=== PATIENT | female | born 1945 | race Caucasian/White ===

== ENCOUNTER → 2017-11-08 11:01 | Outpatient (CLI) | payer MEDICARE, MEDICAID, SELFPAY ==
[2017-11-08 11:24] LABS: Basophils # 0.1 K/mm3 (0-0.2); Basophils % 1.7 % (0.1-2.0); Eosinophils # 0.2 K/mm3 (0.0-0.4); Eosinophils % 3.3 % (0.1-12.0); Hematocrit 43.4 % (37.0-47.0); Hemoglobin 14.2 g/dL (12.2-16.2); Lymphocytes # 2.3 K/mm3 (0.7-4.5); Lymphocytes % 34.6 K/mm3 (10-50); Mean Corpuscular HGB Conc 32.6 g/dL (31.8-35.4); Mean Corpuscular Hemoglobin 30.6 pg (27.0-31.2); Mean Platelet Volume 8.5 fl (7.4-10.4); Monocytes # 0.5 K/mm3 (0.1-1.0); Monocytes % 7.1 % (1.7-9.3); Neutrophils # 3.5 K/mm3 (1.8-7.8); Neutrophils % 53.3 % (37.0-80.0); Platelet Count 305 K/mm3 (142-424); Red Blood Count 4.62 M/mm3 (4.20-5.40); Red Cell Distribution Width 13.6 % (11.5-17.5); White Blood Count 6.5 K/mm3 (4.8-10.8)
[2017-11-08 12:06] LABS: Hemoglobin A1C 6.2 % (0.0-7.0)
[2017-11-08 13:12] LABS: Alanine Aminotransferase 50 U/L (12-78); Alkaline Phosphatase 142 U/L (46-116); Anion Gap 11.4 mEq/L (5-15); Aspartate Amino Transferase 49 U/L (15-37); Bilirubin,Total 0.3 mg/dL (0.2-1.0); Blood Urea Nitrogen 12 mg/dL (7-18); Carbon Dioxide 31 mmol/L (21.0-32.0); Chloride 102 mmol/L (98-107); Chol/HDL Ratio 2.6 (1-3.5); Cholesterol 167 mg/dL (140-200); Creatinine,Serum 0.62 mg/dL (0.55-1.02); Estimated Glomerular Filt Rate 95 ml/min (>60); GFR (African American) 115 ML/MIN (>60); Globulin 4.1 gm/dl (1.3-3.2); Glucose 113 mg/dL (74-106); HDL Cholesterol 65 mg/dL (29-89); LDL Cholesterol 58 mg/dL (0-130); Potassium 4.4 mmoL/L (3.5-5.1); Sodium 140 mmol/L (136-145); Total Protein,Serum 8.1 gm/dL (6.4-8.2); Triglycerides 220 mg/dL (30-200); VLDL Cholesterol 44 mg/dL (0-40)
[2017-11-08 14:41] LABS: Erythrocyte Sedimentation Rate 22 mm/hr (0-30)
== END ==
PROVIDERS: PCP Internal Medicine Adolescent Medicine; Visit Provider Internal Medicine Adolescent Medicine
DX: E11.9 Type 2 diabetes mellitus without complications (principal); M05.871 Other rheumatoid arthritis with rheumatoid factor of right ankle and foot; E03.9 Hypothyroidism, unspecified
CPT/HCPCS: 36415; 80053; 80061; 83036; 84443; 85025; 85651

== ENCOUNTER → 2018-04-11 09:37 | Outpatient (CLI) | payer MEDICARE, MEDICAID, SELFPAY ==
--- NOTE | 2018-04-11 09:41 | MM_ITS ---
MM Dig screening mamm BI w/CAD ORDERING PHYSICIAN : Acosta Sol MD PATIENT AGE: 72 years GENDER: Female COMPARISON: February, February 2017, January 2011 INDICATION: ITS.REASON: SCREENING a 72-year-old no hormones no new complaints noncontributory family history TECHNIQUE: Standard CC and MLO images were obtained. R2 CAD reviewed. FINDINGS: Mild/moderate residual fibroglandular elements bilaterally. Scattered small areas of nodularity been seen on previous studies dating back to 2013/& 2011. On these areas appear stable with no significant new findings of bilateral follow-up in one year the adequate RIGHT BREAST:No new areas of concern. Again Small areas of minimal nodularity stable. Similar to studies dating back to 2010 LEFT BREAST:The scattered small areas nodularity noted. Particularly note small focus the lateral left breast stable since 2011. IMPRESSION: No significant new findings. Scattered small areas of minimal nodularity bilaterally haven't been present since studies] least 2011. No new findings of significant concern . Follow-up in one year recommended BI-RADS Category: 2 Benign Finding(s) RECOMMENDED FOLLOW-UP: 1YR 1 YEAR FOLLOW-UP (A letter has been sent to the patient regarding results of the study.)
== END ==
PROVIDERS: Family Provider Internal Medicine Adolescent Medicine; PCP Internal Medicine Adolescent Medicine; Visit Provider Internal Medicine Adolescent Medicine
DX: Z12.31 Encounter for screening mammogram for malignant neoplasm of breast (principal)
CPT/HCPCS: 77067

== ENCOUNTER 2019-12-28 10:17 | Emergency (ER) | payer MEDICARE, OTHER, SELFPAY ==
[2019-12-28 10:19] VITALS: BP 169/102; PULSE 65; RESP 15; TEMP 36.6; O2SAT 97; BMI 27.1; BMI 27.4
--- NOTE | 2019-12-28 10:25 | HMH.EDGENADL ---
ED Disposition Clinical Impression: Auditory hallucinations, Atypical chest pain Disposition: Home, Self-Care Condition on Discharge: Good Instructions: DI for Atypical Chest Pain, DI for Anxiety -- Adult, DI for Psychosis Additional Instructions: Seroquel 50 mg at bedtime. Do not take Lexapro. See Kari Hickey in her office as scheduled - January 17, 2020 at 10:45 A.M. Follow-up with Dr. Sol in the office, call for appointment. Additional instructions for CHEST PAIN: See your physician as soon as possible for further evaluation. Return immediately if worsening chest pain, vomiting, shortness of breath, fever, coughing of blood. Prescriptions: Quetiapine Fumarate [Seroquel 50 mg Tablets] 50 mg PO HS #30 tab Transmission Status: Pending to [facility] Referrals: Acosta Sol MD [Primary Care Provider] - - Critical Care Critical Care Time: No Attestation: On , the high probability of a clinically significant, sudden or life threatening deterioration of the following system(s) required my full and direct attention, intervention and personal management. The time I documented below is in addition to time spent performing reported procedures but includes the following listed in this critical care notation. Medical Decision Making - Gustavo Inquiry Pt receiving controlled substance: No Vital Signs: 12/28/19 10:19 Temperature 98 F Temperature Source Oral Pulse Rate [Right] 65 Respiratory Rate 15 Blood Pressure [Right Arm] 169/102 H Blood Pressure Mean [Right Arm] 124 02 Sat by Pulse Oximetry 97 - Lab Data Lab Results 12/28/19 10:20: WBC 7.2, RBC 4.70, Hgb 14.4, Hct 43.6, MCV 92.7, MCH 30.6, MCHC 33.0, RDW 13.2, Plt Count 376, MPV 8.4, Neut % (Auto) 63.4, Lymph % (Auto) 27.7, [place] % (Auto) 6.3, Eos % (Auto) 1.6, Baso % (Auto) 1.1, Neut # (Auto) 4.6, Lymph # (Auto) 2.0, [place] # (Auto) 0.5, Eos # (Auto) 0.1, Baso # (Auto) 0.1 12/28/19 10:20: Sodium 138, Potassium 4.0, Chloride 99, Carbon Dioxide 28, Anion Gap 15.0, BUN 8, Creatinine 0.60, Estimated Creat Clear 62, Estimated GFR 98, Est GFR ( Amer) 119, Glucose 140 H, Calcium 9.6 12/28/19 10:20: Total Bilirubin 0.4, Direct Bilirubin 0.0, Conjugated Bilirubin 0.0, Indirect Bilirubin 0.4, Unconjugated Bilirubin 0.5, AST 43 H, ALT 30, Alkaline Phosphatase 126, Troponin I < 0.01, Total Protein 8.2, Albumin 4.4 12/28/19 10:20: TSH 2.12, Free T4 Index 4.2 L, Thyroxine (T4) 14.0 H, T3 Uptake 30 12/28/19 10:20: Plasma/Serum Alcohol < 10 12/28/19 10:20: Lipase 197 12/28/19 11:25: Urine Color Yellow, Urine Appearance Clear, Urine pH 6.0, Ur Specific [place] 1.010, Urine Protein 1+, Urine Glucose (UA) Negative, Urine Ketones Negative, Urine Blood Trace-i, Urine Nitrate Negative, Urine Bilirubin Negative, Urine Urobilinogen 0.2, Ur Leukocyte Esterase Negative, Urine RBC Occasional, Urine WBC Occasional, Ur Squamous Epith Cells 5-10, Amorphous Sediment 1+, Urine Bacteria None 12/28/19 11:25: Urine Opiates Screen Negative, Urine Methadone Screen Negative, Ur Barbituates Screen Negative, Ur Phencyclidine Scrn Negative, Ur Amphetamines Screen Negative, U Benzodiazepines Scrn Negative, Urine Cocaine Screen Negative, U Marijuana (THC) Screen Negative Result diagrams: 12/28/19 10:20 12/28/19 10:20 Orders (Tests/Meds): ORDERS Category Date Time Status CT head/brain wo con Stat Cat Scan 12/28/19 10:43 Taken Chest XR 2 view (NOT portable) [XR chest 2V] Stat Exams 12/28/19 10:34 Taken - Radiology Data #1 Image(s): Chest Image Reviewed: Yes I reviewed the patient's radiology image Preliminary Findings: Normal/NAD - CT Data CT Scan: Head Time Received: 11:47 ([facility] fax) ED CT Reviewed: Yes: I have viewed the radiologist's interpretation Findings Narrative: Atrophy and small vessel ischemic change - ECG Data Tracing #1 EKG interpreted by Rashi Silva MD: Rhythm: sinus Rate: 65 [place]: normal Ectopy: none Conduction: normal
--- NOTE | 2019-12-28 10:34 | XR_ITS ---
PROCEDURE: XR CHEST 2V CLINICAL HISTORY: chest pain COMPARISON: CHW CT CHEST W/ CONTRAST from 04/06/2014 FINDINGS: The cardiomediastinal silhouette and pulmonary vascularity are within normal limits. The lungs are clear without infiltrates, suspicious nodules, or pleural effusions. No acute bony abnormalities. IMPRESSION: No acute findings. Dictated by: Octavio Vaughan MD 12/28/2019 14:02 Electronically signed by Octavio Vaughan MD in [place] 12/28/2019 14:02
--- NOTE | 2019-12-28 10:38 | PC.NURSE ---
speaking to Dr Chan
[2019-12-28 10:41] LABS: Basophils # 0.1 K/mm3 (0-0.2); Basophils % 1.1 % (0.1-2.0); Eosinophils # 0.1 K/mm3 (0.0-0.4); Eosinophils % 1.6 % (0.1-12.0); Hematocrit 43.6 % (37.0-47.0); Hemoglobin 14.4 g/dL (12.2-16.2); Lymphocytes % 27.7 % (10-50); Mean Corpuscular Hemoglobin 30.6 pg (27.0-31.2); Mean Corpuscular Volume 92.7 fl (81-99); Mean Platelet Volume 8.4 fl (7.4-10.4); Monocytes # 0.5 K/mm3 (0.1-1.0); Monocytes % 6.3 % (1.7-9.3); Neutrophils # 4.6 K/mm3 (1.8-7.8); Neutrophils % 63.4 % (37.0-80.0); Platelet Count 376 K/mm3 (142-424); Red Cell Distribution Width 13.2 % (11.5-17.5); White Blood Count 7.2 K/mm3 (4.8-10.8)
--- NOTE | 2019-12-28 10:43 | CT_ITS ---
PROCEDURE: CT HEAD/BRAIN WO CON CLINICAL INDICATION: AMS Altered mental status, altered level of consciousness, confusion, disorientation COMPARISON: CT HEAD/BRAIN WO CON from 03/14/2019 TECHNIQUE: Axial images obtained. All CT scans at the facility use one or more dose reduction, viz: automated exposure control, ma/kV adjustment per patient size (including targeted exams where dose is matched to indication, i.e. head), or iterative reconstruction technique. FINDINGS: No midline shift, mass effect, intracranial hemorrhage, hydrocephalus, or extra-axial fluid collection is evident. There is generalized atrophy with hypoattenuation of the periventricular white matter consistent with microangiopathic changes. The calvarium has an unremarkable appearance. No mastoid effusion. No sinus air-fluid level. IMPRESSION: No acute intracranial finding Dictated by: Octavio Vaughan MD 12/28/2019 13:09 Electronically signed by Octavio Vaughan MD in [place] 12/28/2019 13:09
--- NOTE | 2019-12-28 10:46 | PC.NURSE ---
Notified Kari Hickey of consult for pt
[2019-12-28 10:49] LABS: Alanine Aminotransferase 30 U/L (12-78); Albumin Level 4.4 g/dl (3.5-5.0); Alkaline Phosphatase 126 U/L (38-126); Aspartate Amino Transferase 43 U/L (14-36); Bilirubin,Indirect 0.4 mg/dL (0.0-0.9); Bilirubin,Total 0.4 mg/dl (0.2-1.3); Bilirubin,Unconjugated 0.5 mg/dL (0.0-1.1); Total Protein,Serum 8.2 g/dl (6.3-8.2)
[2019-12-28 10:50] LABS: Blood Urea Nitrogen 8 mg/dl (7-17); Calcium 9.6 mg/dl (8.4-10.2); Carbon Dioxide 28 mmol/L (22.0-30.0); Chloride 99 mmol/L (98-107); Creatinine Clearance Estimated 62 mL/min (50-200); Estimated Glomerular Filt Rate 98 ml/min (>60); GFR (African American) 119 ML/MIN (>60); Glucose 140 mg/dl (74-100); Lipase 197 U/L (23-300); Sodium 138 mmol/L (136-145)
[2019-12-28 10:51] LABS: Ethyl Alcohol < 10 mg/dl (0-10)
[2019-12-28 11:04] LABS: Troponin I < 0.01 ng/ml (0.00-0.034)
[2019-12-28 11:12] LABS: Free Thyroxine Index 4.2 ug/dL (5.93-13.13); Triiodothryronine (T3) Uptake 30 % (23.5-40.5)
[2019-12-28 11:26] LABS: Thyroid Stimulating Hormone 2.12 uIU/mL (0.465-4.68)
--- NOTE | 2019-12-28 11:32 | PC.NURSE ---
Gave update to pt daughter
--- NOTE | 2019-12-28 11:38 | PC.NURSE ---
Kari Hickey here to see pt
[2019-12-28 11:49] LABS: Appearance,Urine CLEAR (Clear); Bilirubin,Urine Negative (Negative); Blood, Urine TRACE-I (Negative); Color,Urine YELLOW (Yellow); Glucose,Urine (UA) Negative (Negative); Ketones,Urine Negative (Negative); Leukocyte Esterase,Urine Negative (Negative); Nitrate,Urine Negative (Negative); Protein,Urine 1+ (Negative); Urobilinogen,Urine 0.2 EU/dl (0.2)
[2019-12-28 11:50] LABS: Microscopic, Urine URINE MICROSCOPIC (MICROSCOPIC)
[2019-12-28 12:01] LABS: Amorphous Sediment,Urine 1+ /lpf; Barbiturates Screen,Urine Negative ng/ml (<200); Benzodiazepines Screen,Urine Negative ng/ml (<200); RBC,Urine Occasional #/hpf (0-3); WBC,Urine Occasional #/hpf (0-3)
[2019-12-28 12:02] LABS: Amphetamine/Metha Screen,Urine Negative ng/ml (<1000)
[2019-12-28 12:03] LABS: Methadone Screen,Urine Negative ng/ml (<300)
[2019-12-28 12:04] LABS: Cannabinoid Screen,Urine Negative ng/ml (<50); Cocaine Screen,Urine Negative ng/ml (<300)
[2019-12-28 12:05] LABS: Opiate Screen,Urine Negative ng/ml (<300); Phencyclidine Screen,Urine Negative ng/ml (<25)
--- NOTE | 2019-12-28 12:11 | PC.NURSE ---
COURT RECOMMENDS STARTING ON SEROQUEL 50 @ BEDTIME THEN SHE HAS AN APPT TO COME SEE HER ON JANUARY 16 @[address]24. COURT IS PUTTING HER NOTE IN
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
--- NOTE | 2019-12-28 12:49 | PC.NURSE ---
Notified daughter that pt is ready to be d/c and she stated she would try to find her a ride
--- NOTE | 2019-12-28 12:50 | ECG_ITS ---
APPROVED REPORT Exam: Resting ECG HR:65 bpm ECG Measurements Heart Rate 65 AXES CO 222 P 73 QRSd 92 QRS 43 QT 440 T 62 QTc 457 <Conclusion> Sinus rhythm with 1st degree AV block Nonspecific T wave abnormality Abnormal ECG Electronically signed by : Acosta Sol, 12/29/2019 14:08:35
[2019-12-28 13:05] VITALS: BP 155/74; PULSE 78; RESP 16; TEMP 36.6; O2SAT 98
== END 2019-12-28 13:07 | disposition home or self-care (01) ==
PROVIDERS: Emergency Provider Emergency Medicine; PCP Internal Medicine Adolescent Medicine
DX: R44.0 Auditory hallucinations (principal); R07.89 Other chest pain; E11.9 Type 2 diabetes mellitus without complications; M81.0 Age-related osteoporosis without current pathological fracture; E78.5 Hyperlipidemia, unspecified; I10 Essential (primary) hypertension; F41.9 Anxiety disorder, unspecified
CPT/HCPCS: 70450; 71046; 80048; 80076; 80305; 81001; 83690; 84436; 84443; 84479; 84484; 85025; 93005; 99283

== ENCOUNTER → 2020-10-14 08:28 | Outpatient (CLI) | payer MEDICARE, OTHER, SELFPAY ==
--- NOTE | 2020-10-14 08:43 | MM_ITS ---
PROCEDURE: MM DIG SCREENING MAMM BI W/CAD Digital Breast Tomosynthesis Included CLINICAL INDICATION: SCREENING, POST MENOPAUSAL There is no personal or family history of breast cancer. The patient currently is on estrogen. COMPARISON: MG DMSB DIG MAMM-SCREEN CARMEN from 03/30/2013 MG [facility]B DIG MAMM-SCREEN CARMEN from 04/06/2014 MG DMSB DIG MAMM-SCREEN CARMEN W/CAD from 03/16/2017 [facility] MM Dig screening mamm BI w/CAD from 04/11/2018 TECHNIQUE: Standard CC and MLO images and 3D Tomosynthesis was obtained. R2 CAD reviewed. FINDINGS: Scattered diffuse fibroglandular densities are seen in both breasts. There are no CAD markings. There are benign-appearing microcalcifications right breast. There is stable benign-appearing nodularity in the central portions of both breast. There is no new or suspicious lesion in either breast and no suspicious microcalcifications. IMPRESSION: Moderate breast density with no suspicious lesions seen BI-RAD Category: 2 Benign Finding(s) FOLLOW-UP: 1YR 1 Year Follow-up (A letter has been sent to the patient regarding results of the study.) Dictated by: Dr. Homer Greer MD 10/20/2020 10:19 Dr. Homer Greer MD in [place] 10/20/2020 10:19
--- NOTE | 2020-10-14 08:47 | XR_ITS ---
PROCEDURE: XR DEXA AXIAL SKELETON CLINICAL HISTORY: POST MENOPAUSAL COMPARISON: CR BONE3 BONE DENSITOMETRY(HIP:LT SPINE from 03/16/2017 FINDINGS: The right hip BMD is 0.737 grams/cm2 with a T-score of -1.7. The left hip BMD is 0.792 grams/cm2 with a T-score of -1.2. The lumbar spine BMD is 0.968 grams/cm2 with a T-score of -0.7. FRAX score for 10 year fracture risk as described below: Major osteoporotic fracture 11 percent Hip fracture 1.5 percent. IMPRESSION: This patient is considered osteopenic according to the World Health Organization criteria. Bone density is between 10 and 25 percent below young normal. Fracture risk is moderate. Treatment is advised. Based on these results a follow-up exam is recommended in year. Dictated by: Rachael Brannon 10/14/2020 11:09 Rachael Brannon in [place] 10/14/2020 11:09
== END ==
PROVIDERS: PCP Internal Medicine Adolescent Medicine; Visit Provider Internal Medicine Adolescent Medicine
DX: Z12.31 Encounter for screening mammogram for malignant neoplasm of breast (principal); Z78.0 Asymptomatic menopausal state
CPT/HCPCS: 77063; 77067; 77080

== ENCOUNTER → 2020-11-12 10:25 | Outpatient (CLI) | payer MEDICARE, OTHER, SELFPAY ==
--- NOTE | 2020-11-12 10:31 | US_ITS ---
PROCEDURE: US THYROID CLINICAL INDICATION: HYPOTHYROIDISM,PHARYNGEAL DYSPHAGIA COMPARISON: No exams were available for comparison FINDINGS: Right lobe: 4.2 x 1.9 x 2.5 cm Left lobe: 3.4 x 1.2 x 1.4 cm Isthmus: Slightly thickened at 4 mm Additional findings: There is heterogeneous echogenicity of the thyroid gland with no discrete nodule. IMPRESSION: Heterogeneous echogenic appearance of the thyroid gland without obvious discrete nodule Dictated by: Octavio Vaughan MD 11/12/2020 17:20 Octavio Vaughan MD in [place] 11/12/2020 17:20
--- NOTE | 2020-11-12 10:33 | FL_ITS ---
PROCEDURE: FL BARIUM SWALLOW MODIFIED CLINICAL INDICATION: PHARYNGEAL DYSPHAGIA COMPARISON: No exams were available for comparison TECHNIQUE: Patient administered varying consistencies of barium contrast, while viewed in lateral position under real-time fluoroscopy with cine recording. FLUOROSCOPY TIME:1 minutes and 59 seconds The study was performed in conjunction with speech pathologist. Please see that report & recommendations. FINDINGS: Patient was given varying consistencies of barium. No aspiration or penetration apparent. There was some difficulty with bolus formation with mechanical soft.. IMPRESSION: Unremarkable modified barium swallow. Please see speech pathologist report and recommendations. Dictated by: Octavio Vaughan MD 11/13/2020 10:27 Octavio Vaughan MD in [place] 11/13/2020 10:27
--- NOTE | 2020-11-12 14:09 | HMH.SLMBS2 ---
Speech & Language Evaluation Speech/Language Mod Barium Swallow Start: 11/12/20 12:55 Freq: once Status: Complete Protocol: Document 11/12/20 13:59 CASA (Rec: 11/12/20 14:09 CASA [id number]) General Information General Current Food Consistancy Regular,Thin Liquids Dentition Edentulous Oxygen Status Room Air Facial Symmetry Symmetrical Patient Orientation Person,Place Ability to Follow Directions Good Communication Ability Mild Impairment MBS Recommendations Diet Dietary Recommendations Mechanical Soft,Ground Meats, Thin Liquids Treatment/Strategies Strategy/Precaution Recommend Sitting Upright (90 deg),Chin Tuck,No Straw,Liquids from Cup ,Small Bites and Sips, Alternate Liquids/Solids Mod Barium Swallow Impressions Summary and Impressions Oral Phase Impression Mild Impairment Oral Phase Summary Ms. Chew was given the following consistencies: thins via straw and open cup, pudding, and mechanical soft. Ms. Chew exhibited difficulty with mastication of mechanical soft. She complains of having difficulty at home. Pharyngeal Phase Impression Mild Impairment Pharyngeal Phase Summary Ms. Chew exhibited penetration into laryngeal vestibule with all thin trials. Chin tuck did improve when educated on taking small volumes of thins along with the chin tuck. It is recommended that she be seen in the outpatient clinic or through home health. Speech/Language MBS Assessment/Goals/Plan Assessment Date of Evaluation: 11/12/20 Evaluation Type Initial Certification Assessment/Problems Dysphagia Does Patient Qualify for Service Yes Qualify/Failure Comment Patient would benefit from outpatient or home health speech therapy. Recommendations PHYSICIAN CERTIFICATION: The specified therapy services are required, authorized, and reviewed every 30 days. Diet Recommendations Mechanical Soft Liquid Type Recommendations Normal/Thin SL Swallow Guidelines Standard Aspiration Prec. Dysphagia Swallow Precautions/Strategies Sitting Upright (90 deg),Chin Tuck,No Straw,Liquids from Cup ,Small Bites and Sips,
== END ==
PROVIDERS: PCP Internal Medicine Adolescent Medicine; Visit Provider Internal Medicine Adolescent Medicine
DX: R13.13 Dysphagia, pharyngeal phase (principal); E03.9 Hypothyroidism, unspecified
CPT/HCPCS: 70371; 76536; 92611

== ENCOUNTER → 2021-01-06 10:21 | Outpatient (CLI) | payer MEDICARE, OTHER, SELFPAY ==
[2021-01-06 11:19] LABS: Basophils # 0.1 K/mm3 (0-0.2); Eosinophils # 0.1 K/mm3 (0.0-0.4); Eosinophils % 1.5 % (0.1-12.0); Hematocrit 43.1 % (37.0-47.0); Hemoglobin 14.7 g/dL (12.2-16.2); Lymphocytes % 25.9 % (10-50); Mean Corpuscular Hemoglobin 30.7 pg (27.0-31.2); Mean Corpuscular Volume 90.2 fl (81-99); Mean Platelet Volume 8.6 fl (7.4-10.4); Monocytes # 0.5 K/mm3 (0.1-1.0); Monocytes % 6.2 % (1.7-9.3); Neutrophils # 4.9 K/mm3 (1.8-7.8); Neutrophils % 65.3 % (37.0-80.0); Platelet Count 341 K/mm3 (142-424); Red Blood Count 4.78 M/mm3 (4.20-5.40); Red Cell Distribution Width 13.5 % (11.5-17.5); White Blood Count 7.6 K/mm3 (4.8-10.8)
[2021-01-06 11:40] LABS: Hemoglobin A1C 5.9 % (4.0-6.0)
[2021-01-06 11:44] LABS: Alanine Aminotransferase 20 U/L (12-78); Albumin Level 4.3 g/dl (3.5-5.0); Albumin/Globulin Ratio 1.3 (1.1-1.8); Alkaline Phosphatase 117 U/L (38-126); Aspartate Amino Transferase 28 U/L (14-36); Bilirubin,Total 0.6 mg/dl (0.2-1.3); Blood Urea Nitrogen 11 mg/dl (7-17); Calcium 9.9 mg/dl (8.4-10.2); Carbon Dioxide 28 mmol/L (22.0-30.0); Chloride 98 mmol/L (98-107); Cholesterol 188 mg/dl (140-200); Estimated Glomerular Filt Rate 82 ml/min (>60); GFR (African American) 99 ML/MIN (>60); Globulin 3.2 g/dL (1.3-3.2); Glucose 109 mg/dl (74-100); HDL Cholesterol 93 mg/dl (40-60); Sodium 139 mmol/L (136-145); Total Protein,Serum 7.5 g/dl (6.3-8.2); Triglycerides 203 mg/dl (30-150); VLDL Cholesterol 41 mg/dL (0-40)
[2021-01-06 11:55] LABS: Direct LDL Cholesterol 73.48 mg/dL (100-129)
[2021-01-06 12:02] LABS: Free Thyroxine Index 4.2 ug/dL (5.93-13.13); T4 (Thyroxine) 16.1 ug/dl (5.53-11.0); Triiodothryronine (T3) Uptake 26 % (23.5-40.5)
[2021-01-06 12:15] LABS: Thyroid Stimulating Hormone 0.63 uIU/mL (0.465-4.68)
[2021-01-06 12:33] LABS: Vitamin B12 388 pg/mL (239-931)
== END ==
PROVIDERS: Visit Provider Internal Medicine Adolescent Medicine
DX: E11.9 Type 2 diabetes mellitus without complications (principal); E03.9 Hypothyroidism, unspecified; E78.5 Hyperlipidemia, unspecified; M05.871 Other rheumatoid arthritis with rheumatoid factor of right ankle and foot; R44.1 Visual hallucinations
CPT/HCPCS: 36415; 80053; 80061; 82607; 83036; 84436; 84443; 84479; 85025

== ENCOUNTER 2021-12-06 11:29 | Emergency (ER) | payer MEDICARE, OTHER, SELFPAY ==
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
[2021-12-06 11:44] VITALS: BP 175/105; PULSE 80; RESP 18; TEMP 36.8; O2SAT 96; BMI 29.9
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
--- NOTE | 2021-12-06 12:04 | PC.NURSE ---
patient over to CT scan
--- NOTE | 2021-12-06 12:10 | PC.NURSE ---
patient back from CT scan, hooked back up to vital signs. family member bedside.
[2021-12-06 13:39] VITALS: BP 171/103; PULSE 82; RESP 18; TEMP 36.8; O2SAT 97
== END 2021-12-06 13:41 | disposition home or self-care (01) ==
PROVIDERS: Emergency Provider Emergency Medicine; PCP Internal Medicine Adolescent Medicine
DX: S00.83XA Contusion of other part of head, initial encounter (principal); I10 Essential (primary) hypertension; R78.5 Finding of other psychotropic drug in blood; E11.9 Type 2 diabetes mellitus without complications; M81.0 Age-related osteoporosis without current pathological fracture; M06.9 Rheumatoid arthritis, unspecified; Z79.82 Long term (current) use of aspirin; Z79.890 Hormone replacement therapy; Z79.899 Other long term (current) drug therapy; Z85.828 Personal history of other malignant neoplasm of skin; W01.198A Fall on same level from slipping, tripping and stumbling with subsequent striking against other object, initial encounter
CPT/HCPCS: 70480; 99285

== ENCOUNTER → 2022-04-30 08:10 | Outpatient (CLI) | payer MEDICARE, OTHER, SELFPAY ==
--- NOTE | 2022-04-30 08:22 | MR_ITS ---
FINAL REPORT CLINICAL HISTORY: TREMOR, HYPERTENSION. DIZZINESS AND RIGHT LEG TREMOR. FINDINGS: Multi planar MR imaging was obtained through the brain without contrast. The midline structures appear intact. There is mild to moderate atrophy. There is marked extensive abnormal signal in the deep white matter bilaterally, nonspecific but probably related to chronic ischemia. There is no evidence of Chiari malformation. On T2 and flair axial images the brain parenchyma is homogeneous. On diffusion-weighted images there is no evidence of restricted diffusion. There is abnormal signal in the right mastoid air cells. The seventh and eighth nerve root complexes are intact. IMPRESSION: Extensive changes of chronic microvascular ischemia. No acute ischemia. 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 Reviewed, Interpreted and Dictated by Roberto London MD Transcribed by Kellee Sparrow Authenticated and [facility]
== END ==
PROVIDERS: PCP Internal Medicine Adolescent Medicine; Visit Provider Internal Medicine Adolescent Medicine
DX: I10 Essential (primary) hypertension (principal); R25.1 Tremor, unspecified; H55.00 Unspecified nystagmus
CPT/HCPCS: 70551

== ENCOUNTER 2022-09-13 21:24 | Emergency (ER) | payer MEDICARE, OTHER, SELFPAY ==
[2022-09-13] VITALS (7 sets, daily range): BP systolic 165–190; BP diastolic 100–117; PULSE 62–83; RESP 18; TEMP 36.6–36.9; O2SAT 95–99; BMI 28.1
--- NOTE | 2022-09-13 21:43 | ECG_ITS ---
APPROVED REPORT Exam: Resting ECG HR:69 bpm ECG Measurements Heart Rate 69 AXES IA 231 P 70 QRSd 114 QRS 3 QT 400 T 78 QTc 419 Conclusion SINUS RHYTHM WITH SINUS ARRHYTHMIA WITH FIRST DEGREE AV BLOCK MODERATE INTRAVENTRICULAR CONDUCTION DELAY [110+ ms QRS DURATION] NONSPECIFIC T-WAVE ABNORMALITY ABNORMAL ECG INTERPRETATION BASED ON A DEFAULT AGE OF 40 YEARS UNCONFIRMED REPORT Electronically signed by : Acosta Sol MD 09/14/2022 19:23:40
--- NOTE | 2022-09-13 21:43 | XR_ITS ---
PROCEDURE INFORMATION: Exam: XR Chest Exam date and time: 09/13/2022 9:46 PM Age: 76 years old Clinical indication: Other: Dizzy; Additional info: Dizziness TECHNIQUE: Imaging protocol: Radiologic exam of the chest. Views: 2 views. COMPARISON: CR XR CHEST 2V 12/28/2019 10:55 AM FINDINGS: Lungs: Unremarkable. No consolidation. Pleural spaces: Unremarkable. No pleural effusion. No pneumothorax. Heart/Mediastinum: Unremarkable. No cardiomegaly. Bones/joints: Unremarkable. IMPRESSION: No acute findings.
--- NOTE | 2022-09-13 21:45 | HMH.EDDIZZ ---
Discharge Plan Disposition Patient Disposition: Home, Self-Care Chief Complaint: Dizziness Prescriptions Prescriptions: No Action methotrexate sodium 2.5 mg tablet 2.5 mg PO DAILY 40 Days Label Comments: atorvastatin 20 mg tablet 20 mg PO DAILY 90 Days Label Comments: levothyroxine 137 mcg tablet 137 mg PO DAILY 90 Days Label Comments: aspirin 81 MG tablet,delayed release (DR/EC) 81 mg PO DAILY estradiol 0.5 MG tablet 0.5 mg PO DAILY loratadine 10 MG tablet 10 mg PO DAILY lisinopril 20 mg tablet 20 mg PO DAILY amlodipine 5 mg tablet 5 mg PO DAILY buspirone 10 mg tablet 10 mg PO BID Humira Pen 40 mg/0.8 mL pen injector kit 40 mg SQ QOW Label Comments: Takes every other week on Wednesday melatonin 5 mg tablet 5 mg PO HS Referrals Follow up/Referrals: Acosta Sol MD [Primary Care Provider] - See instructions Clinical Impressions Clinical Impression: Labyrinthine dysfunction of right ear, Hypertension Instructions Patient Instructions: Dizziness, Nonvertigo Discharge ED Provider: Sarah (ED)Binu HPI General Chief Complaint: Dizziness Stated Complaint: ear pain &dizzy Time Seen by Provider: 09/13/22 21:45 Mode of Arrival: Wheelchair Source of Information: Patient, Relative and Medical Record Limitations: No Limitations Description of Symptoms (Recalled from ER Triage Doc. by RN): Pt c/o right sided ear pain for prior two weeks. Denies any fever. Reports using peroxide for it for the last 24 hours. Also states that she began to have dizziness last night prior to going to bed and it has continued throughout the day. History of Present Illness HPI Narrative: rt ear pain over the last 2 weeks w/o rash or trauma and no d/c - has dizziness today mostly with movement - no tinnitus complaint: dizziness Onset (ago): day(s) Timing: gradual onset Description: lightheadedness History of similar episodes: No History of trauma: No Severity: moderate Related Data Home Medications Medication Instructions Recorded Confirmed atorvastatin 20 mg tablet 20 mg PO DAILY Cholesterol 90 days 18 09/13/22 levothyroxine 137 mcg tablet 137 mg PO DAILY thyroid 90 days 08/13/17 09/13/22 methotrexate sodium 2.5 mg tablet 2.5 mg PO DAILY Pain 40 days 08/13/17 09/13/22 aspirin 81 mg tablet,delayed 81 mg PO DAILY Heart disease 12/28/19 09/13/22 release estradiol 0.5 mg tablet 0.5 mg PO DAILY Supplement 12/28/19 09/13/22 loratadine 10 mg tablet 10 mg PO DAILY allergies 12/28/19 09/13/22 adalimumab 40 mg/0.8 mL 40 mg SQ QOW RA 09/13/22 09/13/22 subcutaneous pen kit (Humira Pen) amlodipine 5 mg tablet 5 mg PO DAILY High blood pressure 09/13/22 09/13/22 buspirone 10 mg tablet 10 mg PO BID Anxiety 09/13/22 09/13/22 lisinopril 20 mg tablet 20 mg PO DAILY High blood pressure 09/13/22 09/13/22 melatonin 5 mg tablet 5 mg PO HS sleep 09/13/22 09/13/22 Allergies Allergy/AdvReac Type Severity Reaction Status Date / Time No Known Allergies Allergy Verified 04/10/19 13:32 [facility] Disclaimer: The information contained in this section may have been updated after the patient was seen, as this information can be updated by other users. Social History Smoking Status: Never smoker alcohol intake: never substance use type: denies use current occupational status: retired Travel in the last 8 weeks: None housing: house ROS Obtained: Yes All systems reviewed & no additional complaints except as documented Physical Exam General General appearance: alert Head Head exam: normocephalic Eye Eye exam: Present PERRL and EOMI; Absent scleral icterus or nystagmus ENT ENT exam: Present mucous membranes moist Expanded ENT Exam TM/Canal exam: Bilateral TM: loss of landmarks Neck Neck exam: Present trachea midline; Absent tenderness Respiratory Respiratory exam: Present normal lung sounds bilate
--- NOTE | 2022-09-13 21:53 | PC.NURSE ---
Manual BP: 192/112
--- NOTE | 2022-09-13 21:53 | PC.NURSE ---
Pt gone to RAD via wheelchair
[2022-09-13 21:55] LABS: Basophils # 0.2 K/mm3 (0-0.2); Eosinophils # 0.3 K/mm3 (0.0-0.4); Eosinophils % 4.5 % (0.1-12.0); Hematocrit 43.2 % (37.0-47.0); Hemoglobin 14.5 g/dL (12.2-16.2); Lymphocytes # 3.2 K/mm3 (0.7-4.5); Lymphocytes % 43.1 % (10-50); Mean Corpuscular HGB Conc 33.7 g/dL (31.8-35.4); Mean Corpuscular Hemoglobin 31.5 pg (27.0-31.2); Mean Corpuscular Volume 93.6 fl (81-99); Mean Platelet Volume 8.6 fl (7.4-10.4); Monocytes # 0.7 K/mm3 (0.1-1.0); Monocytes % 8.8 % (1.7-9.3); Neutrophils # 3.1 K/mm3 (1.8-7.8); Neutrophils % 41.6 % (37.0-80.0); Platelet Count 327 K/mm3 (142-424); Red Blood Count 4.61 M/mm3 (4.20-5.40); Red Cell Distribution Width 14.1 % (11.5-17.5); White Blood Count 7.4 K/mm3 (4.8-10.8)
--- NOTE | 2022-09-13 21:59 | PC.NURSE ---
Pt back from RAD
[2022-09-13 22:00] LABS: Alanine Aminotransferase 32 U/L (12-78); Albumin Level 4.1 g/dl (3.5-5.0); Albumin/Globulin Ratio 1.2 (1.1-1.8); Alkaline Phosphatase 93 U/L (38-126); Anion Gap 5.9 mEq/L (5-15); Aspartate Amino Transferase 39 U/L (14-36); Bilirubin,Total 0.5 mg/dl (0.2-1.3); Blood Urea Nitrogen 18 mg/dl (7-17); Calcium 8.9 mg/dl (8.4-10.2); Carbon Dioxide 28 mmol/L (22.0-30.0); Chloride 108 mmol/L (98-107); Creatinine Clearance Estimated 65 mL/min (50-200); Estimated Glomerular Filt Rate 70 ml/min (>60); GFR (African American) 85 ML/MIN (>60); Globulin 3.3 g/dL (1.3-3.2); Glucose 124 mg/dl (74-100); Potassium 3.9 mmoL/L (3.5-5.1); Sodium 138 mmol/L (136-145); Total Protein,Serum 7.4 g/dl (6.3-8.2)
--- NOTE | 2022-09-13 22:12 | CT_ITS ---
PROCEDURE INFORMATION: Exam: CT Head Without Contrast Exam date and time: 09/13/2022 10:23 PM Age: 76 years old Clinical indication: Dizziness; Additional info: Dizzyness, right ear pain TECHNIQUE: Imaging protocol: Computed tomography of the head without contrast. Radiation optimization: All CT scans at this facility use at least one of these dose optimization techniques: automated exposure control; mA and/or kV adjustment per patient size (includes targeted exams where dose is matched to clinical indication); or iterative reconstruction. REPORTING DATA: Count of CT and Cardiac NM exams in prior 12 months: This patient has received [address] and 0 known cardiac nuclear medicine studies in the 12 months prior to the current study. COMPARISON: MR HEAD/BRAIN WO CON 04/30/2022 8:43 AM FINDINGS: Brain: No evidence for intracranial hemorrhage, mass lesions or acute stroke. Intracranial vascular calcifications. Extensive intracranial vascular calcifications around the vertebral arteries. Moderate small vessel ischemic change in the periventricular white matter. Cerebral ventricles: No ventriculomegaly. Paranasal sinuses: Visualized sinuses are unremarkable. No fluid levels. Mastoid air cells: Visualized mastoid air cells are well aerated. Bones/joints: Unremarkable. No acute fracture. Soft tissues: Unremarkable. Other findings: Mild generalized atrophy. IMPRESSION: 1. No evidence for intracranial hemorrhage, mass lesions or acute stroke. 2. Intracranial vascular calcifications. Extensive intracranial vascular calcifications around the vertebral arteries. 3. Mild generalized atrophy. 4. Moderate small vessel ischemic change in the periventricular white matter.
[2022-09-13 22:14] LABS: Troponin I < 0.01 ng/ml (0.00-0.034)
--- NOTE | 2022-09-13 22:21 | PC.NURSE ---
Pt gone to CT via wheelchair
[2022-09-13 22:25] LABS: Erythrocyte Sedimentation Rate 16 mm/hr (0-30)
--- NOTE | 2022-09-13 22:30 | PC.NURSE ---
Pt back from RAD
--- NOTE | 2022-09-13 22:41 | PC.NURSE ---
Pt provided with pepsi, per request
--- NOTE | 2022-09-13 23:10 | PC.NURSE ---
Dr. Smith at speaking with pt/visitor
== END 2022-09-13 23:31 | disposition home or self-care (01) ==
PROVIDERS: Emergency Provider Emergency Medicine; PCP Internal Medicine Adolescent Medicine
DX: H83.2X1 Labyrinthine dysfunction, right ear (principal); I10 Essential (primary) hypertension
CPT/HCPCS: 70450; 71046; 80053; 84484; 85025; 85651; 93005; 96374; 99285

== ENCOUNTER → 2023-04-14 14:52 | Outpatient (CLI) | payer MEDICARE, OTHER, SELFPAY ==
[2023-04-14 15:26] LABS: Basophils # 0.1 K/mm3 (0-0.2); Basophils % 0.9 % (0.1-2.0); Eosinophils # 0.1 K/mm3 (0.0-0.4); Eosinophils % 2.2 % (0.1-12.0); Hematocrit 40.8 % (37.0-47.0); Hemoglobin 12.7 g/dL (12.2-16.2); Lymphocytes # 1.7 K/mm3 (0.7-4.5); Lymphocytes % 29.6 % (10-50); Mean Corpuscular HGB Conc 31.2 g/dL (31.8-35.4); Mean Corpuscular Hemoglobin 29.3 pg (27.0-31.2); Mean Corpuscular Volume 93.9 fl (81-99); Mean Platelet Volume 7.9 fl (7.4-10.4); Monocytes # 0.4 K/mm3 (0.1-1.0); Monocytes % 6.7 % (1.7-9.3); Neutrophils # 3.4 K/mm3 (1.8-7.8); Neutrophils % 60.6 % (37.0-80.0); Platelet Count 378 K/mm3 (142-424); Red Blood Count 4.35 M/mm3 (4.20-5.40); Red Cell Distribution Width 13.9 % (11.5-17.5); White Blood Count 5.6 K/mm3 (4.8-10.8)
[2023-04-14 16:08] LABS: Alanine Aminotransferase 24 U/L (12-78); Albumin Level 3.7 g/dl (3.5-5.0); Albumin/Globulin Ratio 1.2 (1.1-1.8); Alkaline Phosphatase 94 U/L (38-126); Anion Gap 14.4 mEq/L (5-15); Aspartate Amino Transferase 35 U/L (14-36); Bilirubin,Total 0.2 mg/dl (0.2-1.3); Blood Urea Nitrogen 13 mg/dl (7-17); Calcium 9.7 mg/dl (8.4-10.2); Carbon Dioxide 26 mmol/L (22.0-30.0); Chloride 105 mmol/L (98-107); Estimated Glomerular Filt Rate 70 ml/min (>60); GFR (African American) 85 ML/MIN (>60); Globulin 3.2 g/dL (1.3-3.2); Glucose 144 mg/dl (74-100); Magnesium 1.9 mg/dl (1.6-2.3); Potassium 4.4 mmoL/L (3.5-5.1); Sodium 141 mmol/L (136-145); Total Protein,Serum 6.9 g/dl (6.3-8.2)
[2023-04-14 16:25] LABS: 25-OH Vitamin D, Total 33.4 ng/mL (30-100)
[2023-04-14 16:57] LABS: Vitamin B12 429 pg/mL (239-931)
[2023-04-14 18:57] LABS: Hemoglobin A1C 6.1 % (4.0-6.0)
== END ==
PROVIDERS: Physician Assistant; PCP Internal Medicine Adolescent Medicine; Visit Provider Internal Medicine Adolescent Medicine
DX: M79.10 Myalgia, unspecified site (principal); R73.9 Hyperglycemia, unspecified; M85.89 Other specified disorders of bone density and structure, multiple sites
CPT/HCPCS: 36415; 80053; 82306; 82607; 83036; 83735; 85025

== ENCOUNTER 2023-08-16 15:04 | Outpatient (CLI) | payer MEDICARE, OTHER, SELFPAY ==
--- NOTE | 2023-08-16 | CA_ITS ---
FINAL REPORT TECHNIQUE: Compression bustillo scale and Doppler evaluation CLINICAL HISTORY: EDEMA PAIN REDNESS LEFT FOOT FOR 2 WEEKS PER PATIENT COMPARISON: None FINDINGS: Femoral and popliteal veins show normal compressibility and flow. Visualized portion of the calf veins are patent by Doppler exam. IMPRESSION: No evidence of left lower extremity deep venous thrombosis Reviewed, Interpreted and Dictated by Leonila Mahajan MD Transcribed by Rupa Haddad Authenticated and [facility]
== END 2023-08-16 23:59 ==
LOC: RT 15:06
PROVIDERS: PCP Internal Medicine Adolescent Medicine; Visit Provider Nurse Practitioner Family
DX: M79.605 Pain in left leg (principal); R60.0 Localized edema
CPT/HCPCS: 93971

== ENCOUNTER 2023-08-25 16:35 | Outpatient (CLI) | payer MEDICARE, OTHER, SELFPAY ==
--- NOTE | 2023-08-25 | XR_ITS ---
PROCEDURE INFORMATION: Exam: XR Left Foot Exam date and time: 08/25/2023 4:52 PM Age: 77 years old Clinical indication: Cellulitis; Foot; Left TECHNIQUE: Imaging protocol: Radiologic exam of the left foot. Views: 3 or more views. 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 There is a plantar calcaneal enthesophyte. No acute fracture or subluxation. No radiographic evidence for osteomyelitis. Soft tissues: Moderate soft tissue swelling about the ankle is noted. IMPRESSION: Advanced soft tissue swelling without evidence for osteomyelitis.
--- NOTE | 2023-08-25 | XR_ITS ---
PROCEDURE INFORMATION: Exam: XR Left Ankle Exam date and time: 08/25/2023 4:52 PM Age: 77 years old Clinical indication: Cellulitis; Ankle; Left TECHNIQUE: Imaging protocol: Radiologic exam of the left ankle. Views: 3 or more views. COMPARISON: CR XR FOOT LT MIN 3V 08/25/2023 4:52 PM FINDINGS: Bones/joints: No radiographic findings of osteomyelitis. There is a plantar calcaneal enthesophyte. Soft tissues: There is significant soft tissue swelling without acute fracture or radiopaque foreign body. IMPRESSION: There is significant soft tissue swelling without acute fracture or radiopaque foreign body. No radiographic findings of osteomyelitis.
--- NOTE | 2023-08-25 | XR_ITS ---
PROCEDURE INFORMATION: Exam: XR Left Tibia and Fibula Exam date and time: 08/25/2023 4:52 PM Age: 77 years old Clinical indication: Cellulitis; Lower leg; Left TECHNIQUE: Imaging protocol: Radiologic exam of the left tibia and fibula. Views: 2 views. COMPARISON: CR XR ANKLE LT MIN 3V 08/25/2023 4:52 PM FINDINGS: Bones/joints: No acute fracture or dislocation. Soft tissues: Advanced soft tissue swelling is noted without radiopaque foreign body or radiographic changes of osteomyelitis. IMPRESSION: Advanced soft tissue swelling is noted without radiopaque foreign body or radiographic changes of osteomyelitis.
== END 2023-08-25 23:59 ==
LOC: RAD 16:36
PROVIDERS: PCP Internal Medicine Adolescent Medicine; Visit Provider Internal Medicine Adolescent Medicine
DX: L03.116 Cellulitis of left lower limb; M79.672 Pain in left foot; M25.572 Pain in left ankle and joints of left foot; M79.605 Pain in left leg
CPT/HCPCS: 73590; 73610; 73630

== ENCOUNTER 2023-12-07 08:51 | Emergency (ER) | payer MEDICARE, OTHER, SELFPAY ==
[2023-12-07 08:52] VITALS: BP 149/93; PULSE 56; RESP 18; TEMP 37.1; O2SAT 98; BMI 26.6
--- NOTE | 2023-12-07 08:54 | ECG_ITS ---
APPROVED REPORT Exam: Resting ECG HR:54 bpm ECG Measurements Heart Rate 54 AXES ND 190 P 6 QRSd 113 QRS 30 QT 494 T -12 QTc 479 Conclusion SINUS BRADYCARDIA POSSIBLE LATERAL MYOCARDIAL INFARCTION , OF INDETERMINATE AGE [30 ms Q WAVE IN I/aVL/V5/V6] Electronically signed by : LEVI MARISCAL, 12/09/2023 15:46:37
[2023-12-07 09:00] VITALS: BP 137/88; PULSE 60; O2SAT 95
--- NOTE | 2023-12-07 09:03 | XR_ITS ---
FINAL REPORT CLINICAL HISTORY: AMS, now resolved COMPARISON: 09/13/2022 FINDINGS: The heart size is normal. The mediastinum is normal. There is no focal infiltrate or edema. There are no pleural effusions. There is no pneumothorax. There is no osseous abnormality. IMPRESSION: No acute cardiopulmonary process Reviewed, Interpreted and Dictated by Roberto London MD Transcribed by Alicia Funes Authenticated and . [facility]
[2023-12-07 09:12] LABS: Basophils # 0.1 K/mm3 (0-0.2); Basophils % 1.4 % (0.1-2.0); Eosinophils # 0.1 K/mm3 (0.0-0.4); Eosinophils % 1.8 % (0.1-12.0); Hematocrit 40.7 % (37.0-47.0); Hemoglobin 13.3 g/dL (12.2-16.2); Mean Corpuscular HGB Conc 32.6 g/dL (31.8-35.4); Mean Corpuscular Hemoglobin 30.3 pg (27.0-31.2); Mean Corpuscular Volume 92.9 fl (81-99); Mean Platelet Volume 9.3 fl (7.4-10.4); Monocytes # 0.5 K/mm3 (0.1-1.0); Monocytes % 6.4 % (1.7-9.3); Neutrophils # 5.1 K/mm3 (1.8-7.8); Neutrophils % 65.3 % (37.0-80.0); Platelet Count 340 K/mm3 (142-424); Red Blood Count 4.38 M/mm3 (4.20-5.40); Red Cell Distribution Width 13.6 % (11.5-17.5); White Blood Count 7.8 K/mm3 (4.8-10.8)
[2023-12-07 09:13] LABS: Alanine Aminotransferase 23 U/L (12-78); Albumin Level 3.7 g/dl (3.5-5.0); Alkaline Phosphatase 123 U/L (38-126); Anion Gap 13.4 mEq/L (5-15); Aspartate Amino Transferase 30 U/L (14-36); Bilirubin,Total 0.6 mg/dl (0.2-1.3); Blood Urea Nitrogen 9 mg/dl (7-17); Calcium 9.5 mg/dl (8.4-10.2); Carbon Dioxide 29 mmol/L (22.0-30.0); Chloride 99 mmol/L (98-107); Creatinine Clearance Estimated 62 mL/min (50-200); Estimated Glomerular Filt Rate 70 ml/min (>60); GFR (African American) 84 ML/MIN (>60); Globulin 3.6 g/dL (1.3-3.2); Glucose 170 mg/dl (74-100); Potassium 3.4 mmoL/L (3.5-5.1); Sodium 138 mmol/L (136-145); Total Protein,Serum 7.3 g/dl (6.3-8.2)
[2023-12-07 09:26] LABS: NT Pro Brain Natriuretic Pep. 1070 pg/mL (0-450)
--- NOTE | 2023-12-07 09:29 | ED_ITS ---
Discharge Plan Disposition Patient Disposition: Left Against Medical Advice Condition: Fair Prescriptions Prescriptions: No Action methotrexate sodium 2.5 mg tablet 2.5 mg PO DAILY 40 Days Patient Comments: atorvastatin 20 mg tablet 20 mg PO DAILY 90 Days Patient Comments: levothyroxine 137 mcg tablet 137 mg PO DAILY 90 Days Patient Comments: aspirin 81 MG tablet,delayed release (DR/EC) 81 mg PO DAILY estradiol 0.5 MG tablet 0.5 mg PO DAILY loratadine 10 MG tablet 10 mg PO DAILY lisinopril 20 mg tablet 20 mg PO DAILY amlodipine 5 mg tablet 5 mg PO DAILY buspirone 10 mg tablet 10 mg PO BID Humira Pen 40 mg/0.8 mL pen injector kit 40 mg SQ QOW Patient Comments: Takes every other week on Wednesday melatonin 5 mg tablet 5 mg PO HS Referrals Follow up/Referrals: Acosta Sol MD [Primary Care Provider] - See instructions Clinical Impressions Clinical Impression: Syncope and collapse, Left against medical advice Discharge ED Provider: Dustin Mariee General Adult HPI General Chief complaint: Recheck/Abnormal Lab/Rx Stated complaint: Altered Time Seen by Provider: 12/07/23 08:54 Mode of Arrival: EMS Source of Information: Patient and EMS Limitations: No Limitations Description of Symptoms (Recalled from ER Triage Doc. by RN): Patient was brought to ED from [facility]. Family came to patient's home and patient was found unresponsive at the kitchen table, family then called EMS. Per EMS after they arrived patient was awake and alert. Patient denies any pain. History of Present Illness HPI narrative: Please note that above description of symptoms, in this electronic medical record under categorization of recalled from ER triage doctor by RN are reflective of an initial nursing assessment, however, is not reflective of my full history and physical exam that was personally taken and clarified. Consequentially, this preceding description of symptoms, which may include the patient's categorized chief complaint in the EMR, do not reflect my personal clinical impression, and the ultimate description of history of present illness and patient stated complaints should be deferred to this section of the note. Unless stated otherwise or congruent with this section of the note, additional signs, symptoms, or incongruence should be interpreted as inaccurate with my clinical impression. Related Data Home Medications Medication Instructions Recorded Confirmed atorvastatin 20 mg tablet 20 mg PO DAILY Cholesterol 90 days 08/13/17 09/13/22 levothyroxine 137 mcg tablet 137 mg PO DAILY thyroid 90 days 08/13/17 09/13/22 methotrexate sodium 2.5 mg tablet 2.5 mg PO DAILY Pain 40 days 08/13/17 09/13/22 aspirin 81 mg tablet,delayed 81 mg PO DAILY Heart disease 12/28/19 09/13/22 release estradiol 0.5 mg tablet 0.5 mg PO DAILY Supplement 12/28/19 09/13/22 loratadine 10 mg tablet 10 mg PO DAILY allergies 12/28/19 09/13/22 adalimumab 40 mg/0.8 mL 40 mg SQ QOW RA 09/13/22 09/13/22 subcutaneous pen kit (Humira Pen) amlodipine 5 mg tablet 5 mg PO DAILY High blood pressure 09/13/22 09/13/22 buspirone 10 mg tablet 10 mg PO BID Anxiety 09/13/22 09/13/22 lisinopril 20 mg tablet 20 mg PO DAILY High blood pressure 09/13/22 09/13/22 melatonin 5 mg tablet 5 mg PO HS sleep 09/13/22 09/13/22 Allergies Allergy/AdvReac Type Severity Reaction Status Date / Time No Known Allergies Allergy Verified 04/10/19 13:32 [facility] Disclaimer: The information contained in this section may have been updated after the patient was seen, as this information can be updated by other users. Social History Smoking Status: Never smoker alcohol intake: never substance use type: denies use current occupational status: retired Travel in the last 8 weeks: None housing: house ROS Obtained: Yes All systems reviewed & no additional complaints except as documented Physical Exam General General appearance: alert and in no apparent distress Head Head exam: atraumatic and normocephalic Eye Eye exam: Present normal appearance (Strabismus), PERRL and EOMI ENT ENT exam: Present mucous membranes moist Neck Neck exam: Present normal inspection, full ROM and trachea midline Respiratory Respiratory exam: Present normal lung sounds bilaterally; Absent respiratory distress, wheezes, stridor, accessory muscle use or prolonged expiratory phase Cardiovascular Cardiovascular exam: Present normal rhythm and bradycardia Abdominal Exam Abdominal exam: Present soft; Absent distention, tenderness, guarding, rebound or rigidity Extremities Exam Extremities exam: Absent edema Neurological Exam Neurological exam: Present alert, oriented X3, CN II-XII intact, normal gait, reflexes normal and other (NIHSS 0); Absent motor sensory deficit Skin Skin exam: Present warm and dry; Absent diaphoresis or erythema Medical Decision Making Medical Records Medical records reviewed: Yes I reviewed the patient's medical records. Gustavo Inquiry Pt receiving controlled substance: No Gustavo was queried for this patient: No Vital Signs: 12/07/23 08:52 12/07/23 09:00 12/07/23 09:30 Temperature 98.7 F Temperature Source Oral Pulse Rate 60 53 L Pulse Rate [Right Radial] 56 L Respiratory Rate 18 Blood Pressure 137/88 148/82 H Blood Pressure [Right Arm] 149/93 H Blood Pressure Mean 107 110 Blood Pressure Mean [Right Arm] 111 Blood Pressure Source Blood Pressure Source [Right Arm] Automatic Cuff Blood Pressure Position Blood Pressure Position [Right Arm] Supine 02 Sat by Pulse Oximetry 98 95 98 Oxygen Delivery Method Room Air 12/07/23 10:00 12/07/23 10:31 12/07/23 11:15 Temperature 98.6 F Temperature Source Oral Pulse Rate 58 L 57 L Pulse Rate [Right Radial] Respiratory Rate 10 L 13 18 Blood Pressure 136/81 159/86 H 156/70 H Blood Pressure [Right Arm] Blood Pressure Mean Blood Pressure Mean [Right Arm] Blood Pressure Source Automatic Cuff Blood Pressure Source [Right Arm] Blood Pressure Position Supine Blood Pressure Position [Right Arm] 02 Sat by Pulse Oximetry 98 Oxygen Delivery Method Room Air Lab Data Lab Results 12/07/23 08:45: WBC 7.8, RBC 4.38, Hgb 13.3, Hct 40.7, MCV 92.9, MCH 30.3, MCHC 32.6, RDW 13.6, Plt Count 340, MPV 9.3, Neut % (Auto) 65.3, Lymph % (Auto) 25.0, [place] % (Auto) 6.4, Eos % (Auto) 1.8, Baso % (Auto) 1.4, Neut # (Auto) 5.1, Lymph # (Auto) 2.0, [place] # (Auto) 0.5, Eos # (Auto) 0.1, Baso # (Auto) 0.1, Sodium 138, Potassium 3.4 L, Chloride 99, Carbon Dioxide 29, Anion Gap 13.4, BUN 9, Creatinine 0.80, Estimated Creat Clear 62, Estimated GFR 70, Est GFR ( Amer) 84, Glucose 170 H, Calcium 9.5, Total Bilirubin 0.6, AST 30, ALT 23, Alkaline Phosphatase 123, Troponin I < 0.01, NT-Pro-B Natriuret Pep 1070 H, Total Protein 7.3, Albumin 3.7, Globulin 3.6 H, Albumin/Globulin Ratio 1.0 L, T SH 0.27 L, Thyroxine (T4) 16.5 H 12/07/23 10:50: Troponin I < 0.01 12/07/23 08:45 12/07/23 08:45 Orders (Tests/Meds): ED MEDICATIONS Discontinued Medications Generic Name Dose Route Start Last Admin Trade Name Freq PRN Reason Stop Dose Admin Potassium Chloride 40 meq 12/07/23 09:35 12/07/23 09:57 Potassium Chloride 20meq/15ml Udc PO 12/07/23 09:36 40 meq ONCE ONE Administration ORDERS Category Date Time Status XR chest portable Stat Exams 12/07/23 09:03 Completed CBC w/Auto Diff [Complete Blood Count Auto Diff] Stat Lab 12/07/23 08:45 Completed Comprehensive Metabolic Panel Stat Lab 12/07/23 08:45 Completed NT Pro Brain Natriuretic Pep. Stat Lab 12/07/23 08:45 Completed T4 (Thyroxine) Stat Lab 12/07/23 08:45 Completed TSH [Thyroid Stimulating Hormone] Stat Lab 12/07/23 08:45 Completed Troponin I Q3H Lab 12/07/23 10:50 Completed Troponin I Stat Lab 12/07/23 08:45 Completed Medical Decision Narrative: 78-year-old female history of hypertension, hyperlipidemia, hypothyroidism, dementia presenting with altered mental status. Patient has had slow cognitive and physical decline over the past few months, per EMS/per family. Patient has daughter who stop by her house every day to make sure she is up, eating breakfast, alert and acting like herself. Today, daughter stopped by the house, patient was sitting in the chair that she usually sleeps in and was minimally responsive. EMS was called, patient sugar was 206, vitals taken, initially mildly hypotensive, this resolved shortly thereafter. With stimulation with vital signs, etc., patient perked up, alert and oriented for EMS. Upon moving patient to the EMS stretcher, realized patient had soiled herself. Patient brought to the emergency department for further evaluation. History was obtained via conversation with patient, EMS. On arrival, patient hemodynamically stable, alert, oriented x4, appropriate, GCS 15, moving all extremities spontaneously, pupils equal and reactive to light. Full physical exam performed and significant for chronically ill-appearing woman who is very pleasant, no acute distress. Lungs are clear to auscultation bilaterally, she is bradycardic, no evidence of murmurs. Pulses are equal and symmetric in bilateral upper and lower extremities. Abdomen soft, nontender, nondistended. No rash, NIHSS 0 and neurologically intact including cranial nerve, cerebellar, motor and sensory exams. Differential includes dehydration, UTI, pneumonia, polypharmacy, medication administration error, metabolic abnormality, ACS, VA, sepsis, among others. Patient was given 1 L fluids with EMS and continued here for symptomatic management and correction of underlying abnormalities. Workup independently interpreted and significant for nonactionable CBC. Mildly hypokalemic, this was repleted with 40 p.o. Lactate negative, BNP mildly elevated at 1000. Initial troponin negative. Chest x-ray without acute cardiopulmonary disease or edema. See radiology read for full review of final results. Independent interpretation of EKG shows sinus bradycardia 54 beats a minute no ST changes concerning for acute ischemia, but patient does have T wave inversions V3 through V5 and 3 and aVF. No reciprocal elevations. IL 190, QRS 113, QTc 479. Normal axis. Heart score 4. Conversation was had with patient regarding delta troponin, she opted to leave and not wait for urine or delta troponin, I had her sign out AMA for this. She appears to have capacity to make this decision after thorough discussion of risks and benefits and is opting for outpatient management. I contacted patient's primary care provider to make sure he follows up with her and he is agreeable. The patient left AGAINST MEDICAL ADVICE after a thorough discussion of the risks of doing so, including a discussion of potential alternative plans. These risks include but are not limited to clinical decompensation, manager terminal disability and . The patient appears capable of making this decision. I have advised the patient to immediately return if there are any further problems or if they change their mind about seeking further care. Electoral Officer disclaimer Much of this encounter note is an electronic die out worker spoken language to printed text. Electronic die out worker of the spoken language may permit errors. Although I have reviewed the note, some errors may still exist. Critical Care Critical Care Time Critical Care Time: No
[2023-12-07 09:30] VITALS: BP 148/82; PULSE 53; O2SAT 98
[2023-12-07 09:30] LABS: Troponin I < 0.01 ng/ml (0.00-0.034)
[2023-12-07] MEDS: POTASSIUM CHLORIDE 20MEQ/15ML UDC 40 MEQ PO (09:57)
[2023-12-07 09:58] LABS: T4 (Thyroxine) 16.5 ug/dl (5.53-11.0)
[2023-12-07 10:00] VITALS: BP 136/81; RESP 10
[2023-12-07 10:12] LABS: Thyroid Stimulating Hormone 0.27 uIU/mL (0.465-4.68)
[2023-12-07 10:31] VITALS: BP 159/86; PULSE 58; RESP 13; O2SAT 98
[2023-12-07 11:15] VITALS: BP 156/70; PULSE 57; RESP 18; TEMP 37; O2SAT 97
[2023-12-07 11:21] LABS: Troponin I < 0.01 ng/ml (0.00-0.034)
== END 2023-12-07 11:17 | disposition left against medical advice (07) ==
PROVIDERS: Emergency Provider Emergency Medicine; PCP Internal Medicine Adolescent Medicine
DX: R55 Syncope and collapse (principal); E87.6 Hypokalemia; R00.1 Bradycardia, unspecified; R41.82 Altered mental status, unspecified; E03.9 Hypothyroidism, unspecified; E78.5 Hyperlipidemia, unspecified; I10 Essential (primary) hypertension; F03.90 Unspecified dementia, unspecified severity, without behavioral disturbance, psychotic disturbance, mood disturbance, and anxiety
CPT/HCPCS: 71045; 80053; 83880; 84436; 84443; 84484; 85025; 93005; 99284

== ENCOUNTER 2025-03-04 12:04 | Observation (INO) | payer MEDICARE, OTHER, SELFPAY ==
[2025-03-04] VITALS (19 sets, daily range): BP systolic 103–189; BP diastolic 65–104; PULSE 63–110; RESP 16–17; TEMP 37–37.4; O2SAT 95–97; BMI 28.1; BMI 32.8; BMI 31.9
--- NOTE | 2025-03-04 12:18 | [facility].EDCP ---
Discharge Plan Disposition Chief Complaint: PAIN Prescriptions Prescriptions: No Action methotrexate sodium 2.5 mg tablet 2.5 mg PO DAILY 40 Days Patient Comments: atorvastatin 20 mg tablet 20 mg PO DAILY 90 Days Patient Comments: levothyroxine 137 mcg tablet 137 mg PO DAILY 90 Days Patient Comments: aspirin 81 MG tablet,delayed release (DR/EC) 81 mg PO DAILY estradiol 0.5 MG tablet 0.5 mg PO DAILY loratadine 10 MG tablet 10 mg PO DAILY lisinopril 20 mg tablet 20 mg PO DAILY amlodipine 5 mg tablet 5 mg PO DAILY buspirone 10 mg tablet 10 mg PO BID Humira Pen 40 mg/0.8 mL pen injector kit 40 mg SQ QOW Patient Comments: Takes every other week on Wednesday melatonin 5 mg tablet 5 mg PO HS Referrals Follow up/Referrals: Acosta Sol MD [Primary Care Provider, Internal Medicine] - See instructions Print Language Print Language: Maldivian Discharge ED Provider: Elizabeth Lema HPI <Gael Gonzalez DO - Last Filed: 03/04/25 16:27> General Chief Complaint: PAIN Stated Complaint: pain Time Seen by Provider: 03/04/25 12:10 History of Present Illness HPI narrative: This is a 79-year-old female patient, with past medical history of hypertension, hyperlipidemia, hypothyroidism, and dementia, who is presenting to the emergency department today for evaluation of a fall. The patient presents with her daughter who states that the patient lives alone. She states that she goes and checks on her mother from time to time. Today when she checked on her mother she found that she was in the floor for an unknown period of time after what appeared to be an apparent fall. Her daughter did notice that there was an abrasion to the right forehead. Since the fall the patient has been complaining of significant pain in her back as well as weakness in her legs. The patient is not the most reliable historian, however she does not seem to be experiencing any sensory deficits. Related Data Home Medications ?Medication ?Instructions ?Recorded ?Confirmed atorvastatin 20 mg tablet 20 mg PO DAILY Cholesterol 90 days 08/13/17 09/13/22 levothyroxine 137 mcg tablet 137 mg PO DAILY thyroid 90 days 08/13/17 09/13/22 methotrexate sodium 2.5 mg tablet 2.5 mg PO DAILY Pain 40 days 08/13/17 09/13/22 aspirin 81 mg tablet,delayed 81 mg PO DAILY Heart disease 12/28/19 09/13/22 release estradiol 0.5 mg tablet 0.5 mg PO DAILY Supplement 12/28/19 09/13/22 loratadine 10 mg tablet 10 mg PO DAILY allergies 12/28/19 09/13/22 adalimumab 40 mg/0.8 mL 40 mg SQ QOW RA 09/13/22 09/13/22 subcutaneous pen kit (Humira Pen) amlodipine 5 mg tablet 5 mg PO DAILY High blood pressure 09/13/22 09/13/22 buspirone 10 mg tablet 10 mg PO BID Anxiety 09/13/22 09/13/22 lisinopril 20 mg tablet 20 mg PO DAILY High blood pressure 09/13/22 09/13/22 melatonin 5 mg tablet 5 mg PO HS sleep 09/13/22 09/13/22 Allergies Allergy/AdvReac Type Severity Reaction Status Date / Time No Known Allergies Allergy Verified 04/10/19 13:32 [facility] <Gale Gonzalez DO - Last Filed: 03/04/25 16:27> [facility] Disclaimer: The information contained in this section may have been updated after the patient was seen, as this information can be updated by other users. Social History Smoking Status: Never smoker alcohol intake: never substance use type: denies use current occupational status: retired Travel in the last 8 weeks?: None housing: house Have you lived/traveled outside US in past 30 days?: No Contact w/someone who lives/traveled outside US past 30 days?: No Exposure to someone with infectious disease in past 14 days?: No Do you have a fever (greater than 100.4 F or 38 C)?: No Have you tested positive for COVID-19?: No Exposed to someone with COVID-19 in past 14 days?: No Do you have a sore throat?: No Do you have a cough?: No Do you have any weakness?: No Do you have any diarrhea?: No Are you experiencing any unusual bleeding?: No Do you have any muscle aches/pain?: No Do you have any abdominal pain?: Yes Are you experiencing loss of taste or smell?: No Other Medical History Have you received the Flu Vaccine for this season: Yes Have you received the Pneumonia Vaccine: Yes <Gael Gonzalez DO - Last Filed: 03/04/25 16:27> ROS Obtained: Yes Systems reviewed as appropriate & no additional complaints except as documented Physical Exam <Gael Gonzalez DO - Last Filed: 03/04/25 16:27> General General appearance: other (See MDM) Respiratory Respiratory exam: Present other (See MDM) Cardiovascular Cardiovascular exam: Present other (See MDM) Neurological Exam Neurological exam: Present other (See MDM) HEART Score <Gael Gonzalez DO - Last Filed: 03/04/25 16:27> HEART Score HEART Score assessment performed?: No Critical Care <Gael Gonzalez DO - Last Filed: 03/04/25 16:27> Critical Care Time Critical Care Time: No Medical Decision Making <Gael Gonzalez DO - Last Filed: 03/04/25 16:27> Medical Records Medical records reviewed: Yes I reviewed the patient's medical records. Gustavo Inquiry Pt receiving controlled substance: No Gustavo was queried for this patient: No Vital Signs Vital Signs: 03/04/25 12:12 03/04/25 12:29 03/04/25 13:26 Temperature 99.4 F 99.4 F Temperature Source Oral Oral Pulse Rate 102 H 110 H Pulse Rate [Right] 102 H Respiratory Rate 17 17 Blood Pressure 167/101 H 162/92 H Blood Pressure [Right Arm] 167/101 H Blood Pressure Mean Blood Pressure Mean [Right Arm] 123 Blood Pressure Source Automatic Cuff Blood Pressure Source [Right Arm] Automatic Cuff Blood Pressure Position Supine Blood Pressure Position [Right Arm] Supine 02 Sat by Pulse Oximetry 95 95 96 Oxygen Delivery Method Room Air Room Air 03/04/25 13:30 03/04/25 14:00 03/04/25 14:29 Temperature Temperature Source Pulse Rate 105 H 106 H 108 H Pulse Rate [Right] Respiratory Rate Blood Pressure 160/98 H 166/97 H 172/88 H Blood Pressure [Right Arm] Blood Pressure Mean Blood Pressure Mean [Right Arm] Blood Pressure Source Blood Pressure Source [Right Arm] Blood Pressure Position Blood Pressure Position [Right Arm] 02 Sat by Pulse Oximetry 97 96 96 Oxygen Delivery Method 03/04/25 15:01 03/04/25 15:27 03/04/25 15:30 Temperature Temperature Source Pulse Rate 98 H 100 H 107 H Pulse Rate [Right] Respiratory Rate Blood Pressure 150/85 H 148/92 H 150/89 H Blood Pressure [Right Arm] Blood Pressure Mean 106 110 109 Blood Pressure Mean [Right Arm] Blood Pressure Source Blood Pressure Source [Right Arm] Blood Pressure Position Blood Pressure Position [Right Arm] 02 Sat by Pulse Oximetry 95 95 95 Oxygen Delivery Method 03/04/25 16:00 Temperature Temperature Source Pulse Rate 96 H Pulse Rate [Right] Respiratory Rate Blood Pressure 137/81 Blood Pressure [Right Arm] Blood Pressure Mean 99 Blood Pressure Mean [Right Arm] Blood Pressure Source Blood Pressure Source [Right Arm] Blood Pressure Position Blood Pressure Position [Right Arm] 02 Sat by Pulse Oximetry 95 Oxygen Delivery Method Lab Data Labs: Lab Results 03/04/25 12:14: WBC 11.0 H, RBC 4.35, Hgb 12.7, Hct 38.5, MCV 88.5, MCH 29.2, MCHC 33.0, RDW 14.1, Plt Count 349, MPV 11.0 H, Neut % (Auto) 87.8 H, Lymph % (Auto) 5.9 L, [place] % (Auto) 4.9, Eos % (Auto) 0.6, Baso % (Auto) 0.5, Neut # (Auto) 9.7 H, Lymph # (Auto) 0.7, [place] # (Auto) 0.5, Eos # (Auto) 0.1, Baso # (Auto) 0.1, Sodium 136, Potassium 3.6, Chloride 103, Carbon Dioxide 25, Anion Gap 11.6, BUN 19 H, Creatinine 0.80, Estimated Creat Clear 61, Estimated GFR 70, Est GFR ( Amer) 84, Glucose 173 H, Calcium 9.5, Total Bilirubin 0.7, AST 50 H, ALT 32, Alkaline Phosphatase 146 H, Total Creatine Kinase 814 H*, Total Protein 7.7, Albumin 3.9, Globulin 3.8 H, Albumin/Globulin Ratio 1.0 L, HCV Ab JOSSY w/Rflx PCR Qn Negative, HIV Ag/Ab Combo Qual Negative 03/04/25 15:33: Urine Color Yellow, Urine Appearance Clear, Urine pH 6.0, Ur Specific [place] 1.025, Urine Protein Trace, Urine Glucose (UA) Negative, Urine Ketones Negative, Urine Blood Trace-i, Urine Nitrate Negative, Urine Bilirubin Negative, Urine Urobilinogen 0.2, Ur Leukocyte Esterase Negative, Urine RBC Occasional, Urine WBC 5-10, Ur Squamous Epith Cells 10-20, Urine Bacteria 3+ 03/04/25 12:14 03/04/25 12:14 Response Orders (Tests/Meds): ED MEDICATIONS Discontinued Medications Generic Name Dose Route Start Last Admin Trade Name Jianq PRN Reason Stop Dose Admin Acetaminophen 1,000 mg 03/04/25 13:32 03/04/25 13:44 Acetaminophen 500mg Tab PO 03/04/25 13:33 1,000 mg ONCE ONE Administration Lactated Ringer's 1,000 mls @ 999 mls/hr 03/04/25 13:30 03/04/25 13:42 Lactated Ringer's 1000 Ml Bag IV 03/04/25 14:30 999 mls/hr .Q1H1M ONE Administration ORDERS Category Date Time Status CT bony pelvis Stat Cat Scan 03/04/25 12:[address] cervical spine wo con Stat Cat Scan 03/04/25 12:[address] head/brain wo con Stat Cat Scan 03/04/25 12:[address] lumbar spine wo con Stat Cat Scan 03/04/25 12:[address] thoracic spine wo con Stat Cat Scan 03/04/25 12:59 Completed CXR --portable [XR chest portable] Stat Exams 03/04/25 13:32 Completed XR pelvis 1-2V Stat Exams 03/04/25 13:32 Completed CBC w/Auto Diff [Complete Blood Count Auto Diff] Stat Lab 03/04/25 12:14 Completed CK [Creatine Kinase] Stat Lab 03/04/25 12:14 Completed CMP [Comprehensive Metabolic Panel] Stat Lab 03/04/25 12:14 Completed HIV Combo Stat Lab 03/04/25 12:14 Completed Hepatitis C Ab Qual. W/ RFX Stat Lab 03/04/25 12:14 Completed UA [Urinalysis and Microscopic] Stat Lab 03/04/25 15:33 Completed Urine Culture Stat Micro 03/04/25 15:33 Received MDM Narrative Medical Decision Narrative: In summary, this is a 79-year-old female patient who is presenting to the emergency department today for evaluation of a fall in which she was found in the ground by her daughter for an unknown period of time. Since that time she has been complaining of muscle weakness in her lower extremities as well as significant pain in her back and hips. Her comorbidities do include hypertension, hyperlipidemia, hypothyroidism, and dementia. On initial evaluation of the patient she is pleasantly demented. On primary survey she has bilateral breath sounds, an intact airway, and good distal perfusion. On secondary survey the patient does not have any scalp lacerations, hematomas, or abrasions. No midface instability or jaw malocclusion. There is a small abrasion to the right lateral aspect of the forehead. She has no intraoral lacerations or lesions. She does appear clinically dry. She does not have any cervical spine tenderness, however she does have thoracic and lumbar spine tenderness as well as significant tenderness of the pelvis. She also has limited range of motion of the hips bilaterally and pain with passive range of motion of the hips. She has no deformities of the lower extremities or the upper extremities. She has no tenderness of the chest or abdomen. Differential diagnosis to include intracranial hemorrhage, skull fracture, cervical spine fracture, thoracic spine fracture, lumbar spine fracture, rhabdomyolysis, electrolyte derangement, acute kidney injury, among others. Workup was initiated with hematologic labs as well as a chest x-ray, pelvis x-ray, and CT scans of the head, axial spine, and bony pelvis. Labs were personally interpreted by me and demonstrated rhabdomyolysis with a creatine kinase of 814. This does fit clinically given that she has experienced a fall with unknown downtime and is now having weakness in the lower extremities that is new. Based on these findings I did administer a 1 L bolus of lactated Ringer's to the patient. Chest x-ray and pelvis x-ray were personally turbid by me and demonstrates no acute fracture of the pelvis and no evidence of pulmonary contusion or pneumothorax. CT head and cervical spine was personally interpreted by me and I do not appreciate any obvious fractures of the cervical spine or intracranial hemorrhages. Official radiology read is in agreement. At the time of shift change this patient's pelvic CT and lumbar spine CT was pending. This case was handed off to Dr. Lema who will disposition the patient appropriately. I do feel that this patient will likely necessitate admission to ensure that her creatine kinase is not going to peak over the next [address] Lema At 4 PM transfer care accepted. CT scans without acute fracture. I had a interactive conversation with Dr. Bee <Elizabeth Lema MD - Last Filed: 03/04/25 16:57> Vital Signs Vital Signs: 03/04/25 12:12 03/04/25 12:29 03/04/25 13:26 Temperature 99.4 F 99.4 F Temperature Source Oral Oral Pulse Rate 102 H 110 H Pulse Rate [Right] 102 H Respiratory Rate 17 17 Blood Pressure 167/101 H 162/92 H Blood Pressure [Right Arm] 167/101 H Blood Pressure Mean Blood Pressure Mean [Right Arm] 123 Blood Pressure Source Automatic Cuff Blood Pressure Source [Right Arm] Automatic Cuff Blood Pressure Position Supine Blood Pressure Position [Right Arm] Supine 02 Sat by Pulse Oximetry 95 95 96 Oxygen Delivery Method Room Air Room Air 03/04/25 13:30 03/04/25 14:00 03/04/25 14:29 Temperature Temperature Source Pulse Rate 105 H 106 H 108 H Pulse Rate [Right] Respiratory Rate Blood Pressure 160/98 H 166/97 H 172/88 H Blood Pressure [Right Arm] Blood Pressure Mean Blood Pressure Mean [Right Arm] Blood Pressure Source Blood Pressure Source [Right Arm] Blood Pressure Position Blood Pressure Position [Right Arm] 02 Sat by Pulse Oximetry 97 96 96 Oxygen Delivery Method 03/04/25 15:01 03/04/25 15:27 03/04/25 15:30 Temperature Temperature Source Pulse Rate 98 H 100 H 107 H Pulse Rate [Right] Respiratory Rate Blood Pressure 150/85 H 148/92 H 150/89 H Blood Pressure [Right Arm] Blood Pressure Mean 106 110 109 Blood Pressure Mean [Right Arm] Blood Pressure Source Blood Pressure Source [Right Arm] Blood Pressure Position Blood Pressure Position [Right Arm] 02 Sat by Pulse Oximetry 95 95 95 Oxygen Delivery Method 03/04/25 16:00 Temperature Temperature Source Pulse Rate 96 H Pulse Rate [Right] Respiratory Rate Blood Pressure 137/81 Blood Pressure [Right Arm] Blood Pressure Mean 99 Blood Pressure Mean [Right Arm] Blood Pressure Source Blood Pressure Source [Right Arm] Blood Pressure Position Blood Pressure Position [Right Arm] 02 Sat by Pulse Oximetry 95 Oxygen Delivery Method Lab Data Labs: Lab Results 03/04/25 12:14: WBC 11.0 H, RBC 4.35, Hgb 12.7, Hct 38.5, MCV 88.5, MCH 29.2, MCHC 33.0, RDW 14.1, Plt Count 349, MPV 11.0 H, Neut % (Auto) 87.8 H, Lymph % (Auto) 5.9 L, [place] % (Auto) 4.9, Eos % (Auto) 0.6, Baso % (Auto) 0.5, Neut # (Auto) 9.7 H, Lymph # (Auto) 0.7, [place] # (Auto) 0.5, Eos # (Auto) 0.1, Baso # (Auto) 0.1, Sodium 136, Potassium 3.6, Chloride 103, Carbon Dioxide 25, Anion Gap 11.6, BUN 19 H, Creatinine 0.80, Estimated Creat Clear 61, Estimated GFR 70, Est GFR ( Amer) 84, Glucose 173 H, Calcium 9.5, Total Bilirubin 0.7, AST 50 H, ALT 32, Alkaline Phosphatase 146 H, Total Creatine Kinase 814 H*, Total Protein 7.7, Albumin 3.9, Globulin 3.8 H, Albumin/Globulin Ratio 1.0 L, HCV Ab JOSSY w/Rflx PCR Qn Negative, HIV Ag/Ab Combo Qual Negative 03/04/25 15:33: Urine Color Yellow, Urine Appearance Clear, Urine pH 6.0, Ur Specific [place] 1.025, Urine Protein Trace, Urine Glucose (UA) Negative, Urine Ketones Negative, Urine Blood Trace-i, Urine Nitrate Negative, Urine Bilirubin Negative, Urine Urobilinogen 0.2, Ur Leukocyte Esterase Negative, Urine RBC Occasional, Urine WBC 5-10, Ur Squamous Epith Cells 10-20, Urine Bacteria 3+ Response Orders (Tests/Meds): ED MEDICATIONS Discontinued Medications Generic Name Dose Route Start Last Admin Trade Name Freq PRN Reason Stop Dose Admin Acetaminophen 1,000 mg 03/04/25 13:32 03/04/25 13:44 Acetaminophen 500mg Tab PO 03/04/25 13:33 1,000 mg ONCE ONE Administration Lactated Ringer's 1,000 mls @ 999 mls/hr 03/04/25 13:30 03/04/25 13:42 Lactated Ringer's 1000 Ml Bag IV 03/04/25 14:30 999 mls/hr .Q1H1M ONE Administration ORDERS Category Date Time Status CT bony pelvis Stat Cat Scan 03/04/25 12:[address] cervical spine wo con Stat Cat Scan 03/04/25 12:[address] head/brain wo con Stat Cat Scan 03/04/25 12:[address] lumbar spine wo con Stat Cat Scan 03/04/25 12:[address] thoracic spine wo con Stat Cat Scan 03/04/25 12:59 Completed CXR --portable [XR chest portable] Stat Exams 03/04/25 13:32 Completed XR pelvis 1-2V Stat Exams 03/04/25 13:32 Completed CBC w/Auto Diff [Complete Blood Count Auto Diff] Stat Lab 03/04/25 12:14 Completed CK [Creatine Kinase] Stat Lab 03/04/25 12:14 Completed CMP [Comprehensive Metabolic Panel] Stat Lab 03/04/25 12:14 Completed HIV Combo Stat Lab 03/04/25 12:14 Completed Hepatitis C Ab Qual. W/ RFX Stat Lab 03/04/25 12:14 Completed UA [Urinalysis and Microscopic] Stat Lab 03/04/25 15:33 Completed Urine Culture Stat Micro 03/04/25 15:33 Received MDM Narrative Medical Decision Narrative: In summary, this is a 79-year-old female patient who is presenting to the emergency department today for evaluation of a fall in which she was found in the ground by her daughter for an unknown period of time. Since that time she has been complaining of muscle weakness in her lower extremities as well as significant pain in her back and hips. Her comorbidities do include hypertension, hyperlipidemia, hypothyroidism, and dementia. On initial evaluation of the patient she is pleasantly demented. On primary survey she has bilateral breath sounds, an intact airway, and good distal perfusion. On secondary survey the patient does not have any scalp lacerations, hematomas, or abrasions. No midface instability or jaw malocclusion. There is a small abrasion to the right lateral aspect of the forehead. She has no intraoral lacerations or lesions. She does appear clinically dry. She does not have any cervical spine tenderness, however she does have thoracic and lumbar spine tenderness as well as significant tenderness of the pelvis. She also has limited range of motion of the hips bilaterally and pain with passive range of motion of the hips. She has no deformities of the lower extremities or the upper extremities. She has no tenderness of the chest or abdomen. Differential diagnosis to include intracranial hemorrhage, skull fracture, cervical spine fracture, thoracic spine fracture, lumbar spine fracture, rhabdomyolysis, electrolyte derangement, acute kidney injury, among others. Workup was initiated with hematologic labs as well as a chest x-ray, pelvis x-ray, and CT scans of the head, axial spine, and bony pelvis. Labs were personally interpreted by me and demonstrated rhabdomyolysis with a creatine kinase of 814. This does fit clinically given that she has experienced a fall with unknown downtime and is now having weakness in the lower extremities that is new. Based on these findings I did administer a 1 L bolus of lactated Ringer's to the patient. Chest x-ray and pelvis x-ray were personally turbid by me and demonstrates no acute fracture of the pelvis and no evidence of pulmonary contusion or pneumothorax. CT head and cervical spine was personally interpreted by me and I do not appreciate any obvious fractures of the cervical spine or intracranial hemorrhages. Official radiology read is in agreement. At the time of shift change this patient's pelvic CT and lumbar spine CT was pending. This case was handed off to Dr. Lema who will disposition the patient appropriately. I do feel that this patient will likely necessitate admission to ensure that her creatine kinase is not going to peak over the next [address] Lema At 4 PM transfer care accepted. CT scans without acute fracture. I had a interactive conversation with Dr. Bee excepted patient for admission for deconditioning and mild rhabdomyolysis.
--- NOTE | 2025-03-04 12:59 | CT_ITS ---
PROCEDURE INFORMATION: Exam: CT Lumbar Spine Without Contrast Exam date and time: 03/04/2025 1:19 PM Age: 79 years old Clinical indication: Low back pain TECHNIQUE: Imaging protocol: Computed tomography of the lumbar spine without contrast. Radiation optimization: All CT scans at this facility use at least one of these dose optimization techniques: automated exposure control; mA and/or kV adjustment per patient size (includes targeted exams where dose is matched to clinical indication); or iterative reconstruction. COMPARISON: 1. CT THORACIC SPINE WO CON 03/04/2025 1:17 PM 2. No other relevant prior examinations are available. FINDINGS: Bones/joints: No CT evidence for an acute fracture involving the lumbar vertebral bodies. Bones are demineralized. Alignment is normal. Facets are normally aligned. Spinous processes are intact. No areas of severe central spinal canal stenosis. Multilevel mild disc space narrowing and degenerative endplate changes are present. Mild degenerative facet changes are present within the lower lumbar spine, greater to the right. Visualized portion of the right and left SI joint is normally aligned and intact. Visualized portion of the sacrum is intact. Visualized portion of the right and left iliac wing are intact. Vasculature: Mild fusiform dilatation of the upper abdominal aorta. Peripheral atherosclerotic plaque is present. No infrarenal abdominal aortic aneurysm. Heavy peripheral atherosclerotic plaque along the infrarenal abdominal aorta. No retroperitoneal lymphadenopathy. Visualized structures within the abdomen appear unremarkable. Soft tissues: No paravertebral soft tissue swelling. Psoas muscles appear symmetric. No free fluid within the visualized portion of the abdomen or pelvis. Paravertebral musculature appears symmetric. Atherosclerotic plaque along infrarenal abdominal aorta. No retroperitoneal lymphadenopathy. IMPRESSION: No CT evidence for an acute fracture or malalignment involving the lumbar vertebral bodies.
--- NOTE | 2025-03-04 12:59 | CT_ITS ---
PROCEDURE INFORMATION: Exam: CT Head Without Contrast Exam date and time: 03/04/2025 1:13 PM Age: 79 years old Clinical indication: Injury or trauma; Fall; Blunt trauma (contusions or hematomas); Additional info: Fall, head trauma TECHNIQUE: Imaging protocol: Computed tomography of the head without contrast. Radiation optimization: All CT scans at this facility use at least one of these dose optimization techniques: automated exposure control; mA and/or kV adjustment per patient size (includes targeted exams where dose is matched to clinical indication); or iterative reconstruction. COMPARISON: CT HEAD/BRAIN WO CON 09/13/2022 10:23 PM FINDINGS: Brain: No evidence for intracranial hemorrhage, mass lesions or acute stroke. Intracranial vascular calcifications. Mild small vessel ischemic change in the periventricular white matter. Cerebral ventricles: No ventriculomegaly. Pituitary gland and sella: Negative Paranasal sinuses: Visualized sinuses are unremarkable. No fluid levels. Mastoid air cells: Visualized mastoid air cells are well aerated. Orbital cavities: Negative. Bones: Unremarkable. No acute fracture. Soft tissues: Unremarkable. Vasculature: Negative. Other findings: Mild generalized atrophy. IMPRESSION: 1. No evidence for intracranial hemorrhage, mass lesions or acute stroke. 2. Intracranial vascular calcifications. 3. Mild generalized atrophy. 4. Mild small vessel ischemic change in the periventricular white matter.
--- NOTE | 2025-03-04 12:59 | CT_ITS ---
PROCEDURE INFORMATION: Exam: CT Thoracic Spine Without Contrast Exam date and time: 03/04/2025 1:17 PM Age: 79 years old Clinical indication: Injury or trauma; Fall; Blunt trauma (contusions or hematomas); Additional info: Back pain, fall TECHNIQUE: Imaging protocol: Computed tomography of the thoracic spine without contrast. Radiation optimization: All CT scans at this facility use at least one of these dose optimization techniques: automated exposure control; mA and/or kV adjustment per patient size (includes targeted exams where dose is matched to clinical indication); or iterative reconstruction. COMPARISON: 1. CT CERVICAL SPINE WO CON 03/04/2025 1:15 PM 2. Chest x-ray dated September 13, 2022 FINDINGS: Bones/joints: No acute fracture involving the thoracic vertebral bodies. Bones are diffusely demineralized. Facets align normally. Spinous processes are intact. Very slight anterolisthesis of C7 on T1 secondary to facet arthropathy and bony hypertrophy. Area of decreased density within the anterior aspect of the T9 vertebral body more likely corresponds to demineralization of the bone. No bony expansion or destruction. Sagittal images demonstrate mild kyphosis centered near the T6 level. Coronal images demonstrate mild S shaped scoliosis. There is multilevel mild disc space narrowing and mild degenerative endplate change. No areas of severe central spinal canal stenosis. Alignment at the thoracolumbar junction is normal. Visualized portion of the ribs are intact. Soft tissues: No prevertebral or paravertebral soft tissue swelling. Tracheobronchial tree: Central airways are clear. No significant bronchiectasis. Pleural spaces: No pleural effusion within the visualized portion of the right or left lung. No pneumothorax within the visualized portion of the right or left lung. 4 mm nodule within the medial aspect of the right upper lobe (image 56 of series 3). 3.4 mm calcified granuloma within the right lower lobe. This is benign. Probable 3.6 mm nodule within the periphery of the right lower lobe (image 93 of series 3). This is not well evaluated on this exam. Dependent atelectatic changes are present within the posterior aspect of the right and left lower lobe. No apical pneumothorax. No focal airspace consolidation or suspicious mass. Heart: Possible mild cardiomegaly. Heart is not fully imaged. Coronary artery calcifications are present. Fusiform dilatation of the thoracic aorta at the arch measuring up to 3.1 cm in greatest diameter. Mild fusiform dilatation of the descending thoracic aorta measuring up to 3.3 cm in greatest diameter. Probable fusiform dilatation of the ascending thoracic aorta which is not fully imaged. Heavy atherosclerotic plaque along the infrarenal abdominal aorta. Intraperitoneal space: Visualized structures within the upper abdomen appear unremarkable. Upper abdomen is not adequately evaluated on this exam. IMPRESSION: 1. No CT evidence for an acute fracture or malalignment involving the thoracic spine. No suspicious bone lesion. Visualized portion of the ribs are intact. 2. There are a few small pulmonary nodules within the right lung as described. Largest measures up to 4 mm. Lungs are not fully imaged. Please correlate with any prior history of malignancy or smoking. Nonemergent follow-up dedicated noncontrast CT scan of the chest could be considered for further evaluation. For patients at low risk (minimal or absent history of smoking and of other known risk factors), no routine follow-up is indicated. For patients at high risk (history of smoking or of other known risk factors), consider optional CT Chest at 12 months. (Reference: Matt) 3. Fusiform dilatation of the ascending thoracic aorta, aortic arch and descending thoracic aorta. This is not fully evaluated on this exam. This could be further evaluated with follow-up CT scan of the chest as clinically indicated. 4. No pleural effusion or pneumothorax identified. REFERENCES: Matt H, et al. Guidelines for Management of Incidental Pulmonary Nodules Detected on CT Images: From the Fleischner Society 2017. Radiology. 2017;284(1):228-243.
--- NOTE | 2025-03-04 12:59 | CT_ITS ---
PROCEDURE INFORMATION: Exam: CT Cervical Spine Without Contrast Exam date and time: 03/04/2025 1:15 PM Age: 79 years old Clinical indication: Injury or trauma; Fall; Blunt trauma TECHNIQUE: Imaging protocol: Computed tomography of the cervical spine without contrast. Radiation optimization: All CT scans at this facility use at least one of these dose optimization techniques: automated exposure control; mA and/or kV adjustment per patient size (includes targeted exams where dose is matched to clinical indication); or iterative reconstruction. COMPARISON: CT CERVICAL SPINE WO CON 03/14/2019 10:30 AM FINDINGS: Bones: Spinal alignment is normal. No fracture or bone destruction. Bimd-ke-yqjfzycs multilevel facet arthropathy. Predental space narrowing consistent with arthritis. Diffuse osteopenia. Subtle fractures may be missed. Brain: Intracranial vascular calcifications. Lungs: Lung apices are normal. Soft tissues: Unremarkable. Other findings: Chronic calcifications. IMPRESSION: 1. Spinal alignment is normal. 2. No fracture or bone destruction. 3. Uywi-yf-yahyurtl multilevel facet arthropathy. 4. Chronic calcifications. 5. Intracranial vascular calcifications. 6. Predental space narrowing consistent with arthritis. 7. Diffuse osteopenia. Subtle fractures may be missed.
--- NOTE | 2025-03-04 12:59 | CT_ITS ---
PROCEDURE INFORMATION: Exam: CT Pelvis Without Contrast, Skeleton Exam date and time: 03/04/2025 1:22 PM Age: 79 years old Clinical indication: Injury or trauma; Fall; Blunt trauma (contusions or hematomas); Bilateral; Pelvic region; Additional info: Fall, pelvis TECHNIQUE: Imaging protocol: Computed tomography of the pelvis without contrast. Exam focused on the skeleton. Radiation optimization: All CT scans at this facility use at least one of these dose optimization techniques: automated exposure control; mA and/or kV adjustment per patient size (includes targeted exams where dose is matched to clinical indication); or iterative reconstruction. COMPARISON: CT LUMBAR SPINE WO CON 03/04/2025 1:19 PM FINDINGS: Intestine: Visualized portion of the small intestine and colon appear unremarkable. Intraperitoneal space: No free fluid within the pelvis. Vasculature: Visualized portion of the infrarenal abdominal aorta is normal in caliber. Peripheral atherosclerotic plaque. Reproductive: Status post prior hysterectomy. Urinary bladder: The bladder is distended. No bladder wall thickening or bladder calculus. Bones/joints: No CT evidence of an acute fracture involving the osseous structures within the pelvis. Right and left iliac wing are intact. The sacrum appears intact. Proximal aspect of the right and left femur are intact. Moderate osteoarthritic changes are present at the right and left hip joint. Symphysis pubis is normally aligned. Bones appear demineralized. No suspicious bone lesion. Visualized lower lumbar vertebral bodies are intact. Facets align normally. Degenerative facet arthropathy is present at the L4-L5 and L5-S1 levels. Mild degenerative endplate changes are present at the L3-L4, L4-L5 and L5-S1 levels. Soft tissues: Small left inguinal hernia containing fat. Musculature surrounding the pelvis appears unremarkable. No intramuscular hematoma. Overlying subcutaneous soft tissues appear unremarkable. Lymph nodes: No suspicious pelvic mass or lymphadenopathy. Mildly prominent inguinal lymph nodes are present. These appear to have a normal fatty hilum and most likely are benign. IMPRESSION: 1. No acute fracture or malalignment. 2. No intramuscular hematoma. No free fluid within the pelvis. 3. Moderately advanced osteoarthritic changes are present at the right and left hip joint. 4. The bladder is distended.
[2025-03-04 13:05] LABS: Hematocrit 38.5 % (37.0-47.0); Hemoglobin 12.7 g/dL (12.2-16.2); Immature Granulocytes % 0.3 %; Mean Corpuscular HGB Conc 33.0 g/dL (31.8-35.4); Mean Corpuscular Hemoglobin 29.2 pg (27.0-31.2); Mean Corpuscular Volume 88.5 fl (81-99); Nucleated Red Blood Cells % 0 %; Platelet Count 349 K/mm3 (142-424); Red Blood Count 4.35 M/mm3 (4.20-5.40); Red Cell Distribution Width-SD 45.3 fL; White Blood Count 11.0 K/mm3 (4.8-10.8)
[2025-03-04 13:07] LABS: Albumin Level 3.9 g/dl (3.5-5.0); Chloride 103 mmol/L (98-107); Potassium 3.6 mmoL/L (3.5-5.1); Sodium 136 mmol/L (136-145)
[2025-03-04 13:09] LABS: Blood Urea Nitrogen 19 mg/dl (7-17); Creatinine Clearance Estimated 61 mL/min (50-200); Creatinine,Serum 0.80 mg/dl (0.52-1.04); Estimated Glomerular Filt Rate 70 ml/min (>60); GFR (African American) 84 ML/MIN (>60)
[2025-03-04 13:10] LABS: Alanine Aminotransferase 32 U/L (12-78); Albumin/Globulin Ratio 1.0 (1.1-1.8); Alkaline Phosphatase 146 U/L (38-126); Anion Gap 11.6 mEq/L (5-15); Aspartate Amino Transferase 50 U/L (14-36); Bilirubin,Total 0.7 mg/dl (0.2-1.3); Calcium 9.5 mg/dl (8.4-10.2); Carbon Dioxide 25 mmol/L (22.0-30.0); Globulin 3.8 g/dL (1.3-3.2); Glucose 173 mg/dl (74-100); Total Protein,Serum 7.7 g/dl (6.3-8.2)
[2025-03-04 13:23] LABS: Creatine Kinase 814 U/L (30-135)
--- NOTE | 2025-03-04 13:32 | XR_ITS ---
PROCEDURE INFORMATION: Exam: XR Pelvis Exam date and time: 03/04/2025 1:39 PM Age: 79 years old Clinical indication: Injury or trauma; Fall; Blunt trauma (contusions or hematomas); Bilateral; Pelvic region TECHNIQUE: Imaging protocol: Radiologic exam of the pelvis. Views: 1 or 2 view. COMPARISON: CT BONY PELVIS 03/04/2025 1:22 PM FINDINGS: Limitations: Large amount of overlying soft tissue and bowel gas. Tubes, catheters and devices: Surgical clips project within the left lower pelvis. Bones/joints: No displaced fracture involving the pelvis. Symphysis pubis is normally aligned. Superior and inferior pubic rami are intact. Sacral ala are intact. SI joints appear symmetric. Normal alignment of the right and left hip joint. Moderately advanced osteoarthritic changes are present at the right and left hip joint. Mild disc space narrowing and degenerative endplate change at L5-S1. Degenerative facet arthropathy is present at the L5-S1 level. Soft tissues: Unremarkable. Gastrointestinal tract: There are numerous air-filled loops of colon and small bowel scattered throughout the abdomen and pelvis. Bladder likely is distended. IMPRESSION: No acute findings. No fracture of the pelvis identified.
--- NOTE | 2025-03-04 13:32 | XR_ITS ---
PROCEDURE INFORMATION: Exam: XR Chest Exam date and time: 03/04/2025 1:39 PM Age: 79 years old Clinical indication: Injury or trauma; Fall; Blunt trauma (contusions or hematomas) TECHNIQUE: Imaging protocol: Radiologic exam of the chest. Views: 1 view. COMPARISON: 1. CT HEAD/BRAIN WO CON 09/13/2022 10:23 PM 2. CR XR CHEST PORTABLE 12/07/2023 9:24 AM 3. Chest x-ray dated December 28, 2019 FINDINGS: Lungs: Nodular density projecting at the periphery of the left hemidiaphragm may correspond to overlapping densities. The lungs are otherwise clear. Pleural spaces: No large pleural effusion. No pneumothorax. Heart/Mediastinum: Borderline cardiomegaly. Mediastinal contours are smooth. Apparent enlargement of the cardiac silhouette may be secondary to bilateral low lung volumes and slight elevation of the right and left hemidiaphragm. Vasculature: Atherosclerotic plaque at the aortic arch. Probable small carotid artery calcifications are present within the right and left neck. Bones/joints: Moderate scoliosis. Multilevel degenerative changes are present throughout the cervical and thoracic spine. IMPRESSION: 1. No acute findings within the chest. 2. Nodular density projecting at the left lung base may correspond to overlapping densities or potential pulmonary nodule. Please correlate with any prior history of smoking or malignancy. Follow-up nonemergent noncontrast CT scan of the chest could be obtained as clinically indicated.
[2025-03-04 13:33] LABS: Hepatitis C Ab Qual. W/ RFX NEGATIVE (Negative)
[2025-03-04] MEDS: LACTATED RINGERS 1000ML 1,000 ML 999 ML IV (13:42)
[2025-03-04] MEDS: ACETAMINOPHEN 500MG TAB 1000 MG PO (13:44)
[2025-03-04 15:38] LABS: Bilirubin,Urine Negative (Negative); Color,Urine YELLOW (Yellow); Glucose,Urine (UA) Negative (Negative); Ketones,Urine Negative (Negative); Leukocyte Esterase,Urine Negative (Negative); PH,Urine 6.0 (5.0-8.5); Protein,Urine TRACE (Negative); Specific Gravity, Urine 1.025 (1.005-1.030); Urobilinogen,Urine 0.2 EU/dl (0.2)
[2025-03-04 15:39] LABS: Microscopic, Urine URINE MICROSCOPIC (MICROSCOPIC)
[2025-03-04 15:54] LABS: Bacteria,Urine 3+ /lpf; RBC,Urine Occasional #/hpf (0-3)
--- NOTE | 2025-03-04 17:00 | PC.NURSE ---
call made to warehouse distribution associate for bed placement
--- NOTE | 2025-03-04 17:48 | PC.NURSE ---
report called to lissy hernandez on second floor
--- NOTE | 2025-03-04 17:49 | PC.NURSE ---
pts daughter, [facility] [phone]
--- NOTE | 2025-03-04 19:56 | PC.NURSE ---
Attempted to call daughter, Allie, who manages medications for patient. No answer. Left a voicemail for return call.
--- NOTE | 2025-03-04 21:04 | ECG_ITS ---
APPROVED REPORT Exam: Resting ECG HR:85 bpm ECG Measurements Heart Rate 85 AXES [place] 222 P 60 QRSd 109 QRS -34 QT 300 T 121 QTc 342 Conclusion SINUS RHYTHM WITH FIRST DEGREE AV BLOCK LEFT AXIS DEVIATION [QRS AXIS < -30] LEFT VENTRICULAR HYPERTROPHY AND ST-T CHANGE [VOLTAGE CRITERIA PLUS ST/T ABNORMALITY] ABNORMAL ECG UNCONFIRMED REPORT Electronically signed by : Acosta Sol MD 03/05/2025 08:19:25
--- NOTE | 2025-03-04 21:11 | P.HP_ITS ---
<Statement entered by José Miguel Bee MD - 03/06/25 11:44> Personally evaluated patient and agree with the plan of care as outlined by the MANUFACTURER. History of Present Illness *Admission Date: 03/04/25 *Reason for visit:: Fall at home found on ground *History of present illness: This 79-year-old patient with a history of dementia and hallucinations being on psychiatric medications and hypertensive drugs., Also noting a history of hypothyroidism being on thyroid medication. Patient history also includes syncope at home has been to the ER last time in 2023 and left AMA. Patient does live alone according to her daughter and the daughter checks on her. During the exam the patient stated that she did not live alone her mom and dad still live with her. I asked her if she takes care of them she said no they take care of themselves. Patient may require placement after this as she lives alone unsure of how her medications are been taken and get a check for an alcohol level check her hemoglobin A1c noting also that her weight has increased from approximately 180 by history to 211. Question's CHF versus renal failure. Patient noted of having a chronically elevated creatinine. Also noting a CT scan calcium changes to vessels of the brain and some loss of cerebral mass related to a presently her blood sugars are greater than 230. Will continue to evaluate her labs hydrations levels and her creatinine kinase. Also will look for any development of hematomas or any skin breakdown related to lying on the ground for an unknown amount of time. [facility] Disclaimer: The information contained in this section may have been updated after the patient was seen, as this information can be updated by other users. Medical History (Updated 03/04/25 @ 21:32 by Miguel Angel Smith APRN) Lung nodules Tinnitus Nasal abrasion Contusion of nose Epistaxis Epistaxis, recurrent Auditory hallucinations Atypical chest pain Skin tear Left against medical advice Falling episodes Diabetes mellitus Normal hysteroscopy HLD (hyperlipidemia) Hypothyroidism Dementia HTN (hypertension) Surgical History H/O tubal ligation Hx of appendectomy Family History (Updated 03/04/25 @ 18:52 by Bibi Jesus RN) Other No significant family history Social History (Updated 03/04/25 @ 18:52 by Bibi Jesus RN) Smoking Status: Never smoker alcohol intake: never substance use type: denies use current occupational status: retired Travel in the last 8 weeks?: None housing: house Have you lived/traveled outside US in past 30 days?: No Contact w/someone who lives/traveled outside US past 30 days?: No Exposure to someone with infectious disease in past 14 days?: No Do you have a fever (greater than 100.4 F or 38 C)?: No Have you tested positive for COVID-19?: No Exposed to someone with COVID-19 in past 14 days?: No Do you have a sore throat?: No Do you have a cough?: No Do you have any weakness?: No Are you experiencing any nausea/vomitting?: No Do you have any diarrhea?: No Are you experiencing any unusual bleeding?: No Do you have any muscle aches/pain?: No Do you have any abdominal pain?: Yes Are you experiencing loss of taste or smell?: No Other Medical History Have you received the Flu Vaccine for this season: Yes Have you received the Pneumonia Vaccine: Yes Review of Systems Review of Systems Review of systems:: pertinent systems reviewed and negative unless documented below Constitutional Constitutional: Reports as per HPI, Reports frequent falls and Reports weight loss Comments: Noted weight gain, pleasant lady that is confused showing signs of dementia as per history that has continued Eyes Eyes: Reports as per HPI ENT Ears, Nose, Mouth, and Throat: Reports as per HPI Comments: Small contusion to the side of the forehead, present on arrival after fall at home *Respiratory Respiratory: Reports as per HPI *Gastrointestinal Gastrointestinal: Reports as per HPI *Genitourinary Genitourinary: Reports as per HPI *Musculoskeletal Musculoskeletal: Reports as per HPI and Reports abnormal gait Integumentary/Breasts Skin/Breast: Reports as per HPI *Neurologic Neurologic: Reports abnormal gait, Reports behavioral changes, Reports confusion, Reports frequent falls and Reports memory loss Psychiatric Psychiatric: Reports as per HPI, Reports auditory hallucinations, Reports behavioral changes, Reports confusion and Reports memory loss Endocrine Endocrine: Reports as per HPI Hematologic/Lymphatic Hematologic/Lymphatic: Reports as per HPI Allergic/Immunologic Allergic/Immunologic: Reports as per HPI Meds Home Medications and Allergies Home Medications ?Medication ?Instructions ?Recorded ?Confirmed ?Type atorvastatin 20 mg tablet 20 mg PO DAILY Cholesterol 9 0 days 08/13/17 03/04/25 History levothyroxine 137 mcg tablet 137 mcg PO DAILY thyroid 90 days 08/13/17 03/04/25 History aspirin 81 mg tablet,delayed 81 mg PO DAILY Heart dise ase 12/28/19 03/04/25 History release estradiol 0.5 mg tablet 0.5 mg PO HS Supplement 12/1703/04/25 History adalimumab 40 mg/0.8 mL 40 mg SQ QOW RA 09/13/22 History subcutaneous pen kit (Humira Pen) amlodipine 5 mg tablet 5 mg PO DAILY High blood pre ssure 09/13/22 03/04/25 History buspirone 10 mg tablet 10 mg PO BID Anxiety 3 03/04/25 History lisinopril 20 mg tablet 20 mg PO DAILY High blood pr essure 09/13/22 03/04/25 History melatonin 5 mg tablet 5 mg PO HS sleep 09/13/22 History cariprazine 1.5 mg capsule 1.5 mg PO DAILY 03/04/25 History (Vraylar) ergocalciferol (vitamin D2) 1,250 1,250 mcg PO DAILY 0 03/04/25 03/04/25 History mcg (50,000 unit) capsule (Vitamin D2) fluticasone propionate 50 1 spray intranasal DAILY 03/04/25 History mcg/actuation nasal spray,suspension furosemide 20 mg tablet 20 mg PO DAILY 03/04/2502/16 History mirtazapine 15 mg tablet 15 mg PO DAILY 03/04/2502/16 History New Prescriptions to Start Prescriptions: Allergies Allergy/AdvReac Type Severity Reaction Status Date / Time No Known Allergies Allergy Verified 04/10/19 13:32 Exam Data for Last 24 hours Vital signs and Labs for Last 24 Hours: Temp Pulse Resp BP Pulse Ox O2 Del Method 99.1 F 94 H 16 103/65 L 96 Room Air 03/04/25 18:29 03/04/25 18:29 03/04/25 18:29 03/04/25 18:29 03/04/25 17:20 03/04/25 18:55 Laboratory Results - last 24 hr 03/04/25 12:14: WBC 11.0 H, RBC 4.35, Hgb 12.7, Hct 38.5, MCV 88.5, MCH 29.2, MCHC 33.0, RDW 14.1, Plt Count 349, MPV 11.0 H, Neut % (Auto) 87.8 H, Lymph % (Auto) 5.9 L, [place] % (Auto) 4.9, Eos % (Auto) 0.6, Baso % (Auto) 0.5, Neut # (Auto) 9.7 H, Lymph # (Auto) 0.7, [place] # (Auto) 0.5, Eos # (Auto) 0.1, Baso # (Auto) 0.1, Sodium 136, Potassium 3.6, Chloride 103, Carbon Dioxide 25, Anion Gap 11.6, BUN 19 H, Creatinine 0.80, Estimated Creat Clear 61, Estimated GFR 70, Est GFR ( Amer) 84, Glucose 173 H, Calcium 9.5, Total Bilirubin 0.7, AST 50 H, ALT 32, Alkaline Phosphatase 146 H, Total Creatine Kinase 814 H*, Total Protein 7.7, Albumin 3.9, Globulin 3.8 H, Albumin/Globulin Ratio 1.0 L, HCV Ab JOSSY w/Rflx PCR Qn Negative, HIV Ag/Ab Combo Qual Negative 03/04/25 15:33: Urine Color Yellow, Urine Appearance Clear, Urine pH 6.0, Ur Specific [place] 1.025, Urine Protein Trace, Urine Glucose (UA) Negative, Urine Ketones Negative, Urine Blood Trace-i, Urine Nitrate Negative, Urine Bilirubin Negative, Urine Urobilinogen 0.2, Ur Leukocyte Esterase Negative, Urine RBC Occasional, Urine WBC 5-10, Ur Squamous Epith Cells 10-20, Urine Bacteria 3+ I & O for Last 24 hours: Intake & Output 03/02/25 03/03/25 03/04/25 03/05/25 05:59 05:59 05:59 05:59 Output Total 450 / 450 Balance -450 / -450 Weight 211 lb Radiology Reports for the Last 24 Hours: Lung nodules found, no signs of fracture noting some atrophy of the brain with some calcium deposits in the vessels, Constitutional Constitutional: mild distress, obese and chronically ill appearing Comments: Noting apparent 20 pound weight gain since late last year *Routine HEENT Exam Head: Present normocephalic and abrasion (Upper frontal scalp mild abrasion) Eye: Present EOMI, PERRL and normal accommodation ENT: Present mucous membranes moist *Routine Neck Exam Neck: Present supple Comments: No signs of significant neck pain with mild movement *Routine Respiratory Exam Respiratory: Present CTA bilaterally, normal respiratory effort, able to speak in complete sentences and symmetric chest movement Comments: No signs of respiratory issues or chest wall pain *Routine Cardiovascular Exam Cardiovascular: Present RRR *Routine Abdominal Exam Abdominal: Present soft and normoactive bowel sounds *Routine Rectal Exam Rectal:: deferred *Routine Genitalia Exam Genitalia:: deferred *Routine Extremities Exam Comments: The patient is too weak and unstable to stand but was able to move her arms and legs on request *Routine Skin Exam Skin: Present intact Comments: Mild abrasion to forehead *Routine Neurological Exam Neurological: Present alert, oriented X3, CN II-XII intact, altered mental status, normal tone, vision grossly intact and normal speech Comments: Patient shows signs of dementia Routine Psychiatric Exam Psychiatric: Present cooperative Comments: Patient confabulates a lot thinks her mom and dad still lived with her at the house H&P: Result Impressions 1. Following unknown reason 2. Diabetes mellitus 3. Dementia with hallucinations 4. Weight gain with peripheral edema Imaging and Cardiology CT scan - chest: Status: image reviewed by me Additional comments: No CT evidence for an acute fracture or malalignment involving the thoracic spine. No suspicious bone lesion. Visualized portion of the ribs are intact. 2. There are a few small pulmonary nodules within the right lung as described. Largest measures up to 4 mm. Lungs are not fully imaged. Please correlate with any prior history of malignancy or smoking. Nonemergent follow-up dedicated noncontrast CT scan of the chest could be considered for further evaluation. For patients at low risk (minimal or absent history of smoking and of other known risk factors), no routine follow-up is indicated. For patients at high risk (history of smoking or of other known risk factors), consider optional CT Chest at 12 months. (Reference: Matt) 3. Fusiform dilatation of the ascending thoracic aorta, aortic arch and descending thoracic aorta. This is not fully evaluated on this exam. This could be further evaluated with follow-up CT scan of the chest as clinically indicated. Assessment and Plan *Assessment and plan (1) Rhabdomyolysis: Status: Acute Qualifiers: Rhabdomyolysis type: traumatic Encounter type: initial encounter Qualified Code(s): T79.6XXA - Traumatic ischemia of muscle, initial encounter Category: Medical Code(s): M62.82 - Rhabdomyolysis (2) Falling episodes: Status: Acute Category: Medical Code(s): R29.6 - Repeated falls (3) Diabetes mellitus: Status: Acute Qualifiers: Diabetes mellitus type: type 2 Diabetes mellitus termite treater insulin use: unspecified termite treater insulin use status Diabetes mellitus complication status: with other specified complication Qualified Code(s): E11.69 - Type 2 diabetes mellitus with other specified complication Category: Medical Code(s): E11.9 - Type 2 diabetes mellitus without complications (4) Syncope and collapse: Status: Acute Category: Medical Code(s): R55 - Syncope and collapse (5) Hypertension: Status: Acute Qualifiers: Hypertension type: primary hypertension Qualified Code(s): I10 - Essential (primary) hypertension Category: Medical Code(s): I10 - Essential (primary) hypertension (6) Labyrinthine dysfunction of right ear: Status: Acute Category: Medical Code(s): H83.2X1 - Labyrinthine dysfunction, right ear (7) Contusion of face: Status: Acute Qualifiers: Encounter type: initial encounter Qualified Code(s): S00.83XA - Contusion of other part of head, initial encounter Category: Medical Code(s): S00.83XA - Contusion of other part of head, initial encounter (8) Lung nodules: Status: Acute Category: Medical Code(s): R91.8 - Other nonspecific abnormal finding of lung field (9) Weight gain: Status: Acute Category: Medical Code(s): R63.5 - Abnormal weight gain Plan 1. Patient is admitted to the floor will do physical therapy OT consult with case management. Question that this patient has reached a point in time she is no longer able to live alone. Showing signs of dementia and has now started gaining weight with peripheral edema unknown reason has not been worked up. History of falls in the past. Do not have access to patient's primary care visits in our charting system. Question whether placement is now needed. Also will get cardiac echo to determine function 2. Hyperglycemia, will add sliding scale at this time and adjust as necessary 3. Lung nodules showing up on scans unsure of significance 4. Chronic renal insufficiency will continue lab test replace fluid as needed for the elevated creatinine kinase. Urine was not that concentrated will not give extra fluids at this time till labs are rechecked. Question may have underlying CHF. Will wait for cardiac echo results? Cardiology consult.
[2025-03-04] MEDS: humaLOG 100 UNITS/ML 10ML VIAL (SSI) SUBCUT (21:47)
[2025-03-04] MEDS: PANTOPRAZOLE 40MG TABLET 40 MG PO (21:47)
[2025-03-04] MEDS: MELATONIN 5MG TABLET 5 MG PO (21:47)
[2025-03-04] MEDS: BUSPIRONE HCL 10 MG TABLET PO (21:47)
[2025-03-04] MEDS: MIRTAZAPINE 15 MG TABLET PO (21:48)
[2025-03-04 21:58] LABS: Hemoglobin A1C 6.9 % (4.0-6.0)
[2025-03-04 22:04] LABS: Troponin I 0.05 ng/ml (0.00-0.034)
[2025-03-05 04:00] VITALS: BP 143/79; PULSE 95; RESP 18; TEMP 37.1; O2SAT 94; BMI 32.7
--- NOTE | 2025-03-05 05:27 | PC.NURSE ---
Alert to self and place. No complaints of any pain. Purewick in place. Redness to bottom, turned throughout shift. This RN and tech attempted to stand patient bedside of bed, patient was a max assist to stand, patient could not pivot. Bed alarm on. Call light in reach.
[2025-03-05 05:52] LABS: Hematocrit 34.3 % (37.0-47.0); Hemoglobin 11.6 g/dL (12.2-16.2); Immature Granulocytes % 0.3 %; Mean Corpuscular HGB Conc 33.8 g/dL (31.8-35.4); Mean Corpuscular Hemoglobin 29.4 pg (27.0-31.2); Mean Corpuscular Volume 87.1 fl (81-99); Nucleated Red Blood Cells % 0 %; Platelet Count 277 K/mm3 (142-424); Red Blood Count 3.94 M/mm3 (4.20-5.40); Red Cell Distribution Width-SD 45.3 fL; White Blood Count 9.0 K/mm3 (4.8-10.8)
[2025-03-05 06:03] LABS: Creatine Kinase 534 U/L (30-135)
[2025-03-05 06:16] LABS: Troponin I 0.04 ng/ml (0.00-0.034)
[2025-03-05 06:19] LABS: Albumin Level 2.9 g/dl (3.5-5.0); Chloride 103 mmol/L (98-107); Sodium 135 mmol/L (136-145)
[2025-03-05 06:20] LABS: Potassium 3.0 mmoL/L (3.5-5.1)
[2025-03-05 06:21] LABS: Alanine Aminotransferase 22 U/L (12-78); Aspartate Amino Transferase 44 U/L (14-36); Blood Urea Nitrogen 14 mg/dl (7-17); Creatinine Clearance Estimated 73 mL/min (50-200); Creatinine,Serum 0.70 mg/dl (0.52-1.04); Estimated Glomerular Filt Rate 81 ml/min (>60); GFR (African American) 98 ML/MIN (>60)
[2025-03-05 06:22] LABS: Albumin/Globulin Ratio 0.9 (1.1-1.8); Alkaline Phosphatase 116 U/L (38-126); Anion Gap 8.0 mEq/L (5-15); Bilirubin,Total 1.2 mg/dl (0.2-1.3); Calcium 8.7 mg/dl (8.4-10.2); Carbon Dioxide 27 mmol/L (22.0-30.0); Globulin 3.1 g/dL (1.3-3.2); Glucose 147 mg/dl (74-100); Magnesium 1.7 mg/dl (1.6-2.3); Total Protein,Serum 6.0 g/dl (6.3-8.2)
--- NOTE | 2025-03-05 06:28 | PC.NURSE ---
Critical potassium reported to Luis ASHLEY at this time. Electrolyte protocol in place.
[2025-03-05] MEDS: POTASSIUM CHLORIDE 20MEQ TAB 40 MEQ PO ×3 (06:46→15:06)
[2025-03-05 07:56] VITALS: BP 130/77; PULSE 88; RESP 18; TEMP 36.6; O2SAT 96
--- NOTE | 2025-03-05 08:11 | HMH.PHAINT1 ---
Pharmacy Intervention Comments: MEDICATION RECONCILIATION COMPLETED ON PATIENT USING EXTERNAL FILL HISTORY FROM PHARMACY. -AJRUN KAPLAN, ORIOND
[2025-03-05] MEDS: BUSPIRONE HCL 10 MG TABLET PO (09:04)
[2025-03-05] MEDS: ASPIRIN EC 81MG TABLET 81 MG PO (09:05)
[2025-03-05] MEDS: AMLODIPINE 5MG TABLET 5 MG PO (09:05)
--- NOTE | 2025-03-05 09:29 | HMH.OTEV ---
OT Inpatient Evaluation Rehab OT IP Evaluation Start: 03/04/25 18:53 Freq: ONCE Status: Active Protocol: Document 03/05/25 09:07 TIFFWARREN (Rec: 03/05/25 09:29 [id number]) Rehab OT IP Assessment Subjective History Pt asleep on arrival. Pt required max verbal cues and prompts to engage in therapy evaluation; pt continued to fall in and out of sleep. Pt oriented x 2 on arrival. Pt admitted on 03/04/25 due to fall at home and Rhabdo. History and physical: This 79-year-old patient with a history of dementia and hallucinations being on psychiatric medications and hypertensive drugs., Also noting a history of hypothyroidism being on thyroid medication. Patient history also includes syncope at home has been to the ER last time in 2023 and left AMA. Patient does live alone according to her daughter and the daughter checks on her. During the exam the patient stated that she did not live alone her mom and dad still live with her. I asked her if she takes care of them she said no they take care of themselves. Patient may require placement after this as she lives alone unsure of how her medications are been taken and get a check for an alcohol level check her hemoglobin A1c noting also that her weight has increased from approximately 180 by history to 211. Question's CHF versus renal failure. Patient noted of having a chronically elevated creatinine. Also noting a CT scan calcium changes to vessels of the brain and some loss of cerebral mass related to a presently her blood sugars are greater than 230. Will continue to evaluate her labs hydrations levels and her creatinine kinase. Also will look for any development of hematomas or any skin breakdown related to lying on the ground for an unknown amount of time. Subjective Pt unable to provide any previous level of functioning due to decreased arousal. According to chart review, pt does live at home alone and her daughter checks on her often. Objective Patient Orientation Person,Birthday Right Upper Min Limitation <25% Extremity Gross ROM Left Upper Extremity Min Limitation <25% Gross ROM Shoulder ROM Muscle Weakness Limitations Elbow ROM Muscle Weakness Limitations Wrist Limitations of Muscle Weakness Range of Motion Bed Mobility bed mobility-scooting,bed mobility - supine/sit Assist Level Maximum x 2 (75% assist) Rehab OT IP prob,goals,plan Problems Date of Evaluation: 03/05/25 OT IP Problems Bed Mobility,Transfers,Balance,Self care,Safety Rehab Potential Rehab Potential Good Equipment Needs Assistive Devices Rolling / Wheeled Walker Plan OT intervention Plan Bed Mobility,Transfers,Balance,Self care,Safety, Therapeutic Exercise OT Plan Frequency Daily Duration LOS Discharge Goals Bed Mobility Ability Assistance x1 Sit to Stand Chair Maximum x 1 (75% assist) Transfer Ability Chair Transfer Maximum x 1 (75% assist) Ability Chair Transfer Stand Step Pivot Technique Chair Transfer Rolling Walker Assistive Devices Lower Body Dressing Maximum Assistance Ability Upper Body Dressing Moderate Assistance Ability Performing Toilet Maximum Assistance Hygiene Ability Overall Commode/ Maximum Assistance Toilet Transfer Ability Commode/Toilet Stand Pivot Transfer Technique Discharge Plan OT Discharge Plan Pt will continue to be seen for OT services while at [facility]. Pt would benefit most from short term rehab at SNF following discharge from hospital. Continued skilled therapy is important in order for patient to improve strength, safety, endurance, ADL independence, and functional transfers to reach PLOF. Eval Complexity Eval Charge Codes 08064 - Moderate Complexity PHYSICIAN CERTIFICATION: I certify the specified therapy services for Yue Chew are required, authorized, and reviewed every 30 days.
--- NOTE | 2025-03-05 09:43 | SW/DCPLANNER ---
Addendum entered by Jessa Rodgers 03/06/25 13:00: [facility] is able to accept patient. Tino RIVERA Area Operations Manager Addendum entered by Jessa Rodgers 03/06/25 10:12: I faxed patient's information to [facility] for home health services and once i hear back i will update. Tino RIVERA Area Operations Manager Addendum entered by Ashley Facundo 03/06/25 09:52: Aguilar's daughter called back stating that she was unhappy w/ the care at [facility] and decided to take patient home. Daughter has called this morning requesting home health services and a hospital bed. I offered other facilities for this patient (would be required out of town due to other facilities denying) and daughter is not interested at this time. Addendum entered by Ashleypeterson Loredo 03/05/25 14:43: Patient has been accepted to [facility] level of care. Patient/family concur w/ this plan. Patient will discharge today. I have updated Peggy w/ [facility] regarding change of facilities. Addendum entered by Ashley Quantico 03/05/25 12:31: [facility] will be at bedside to evaluate patient. [facility] is also interested and willing to start precert today. I attempted to contact daughter w/ no answer at this time. Addendum entered by Ashley Quantico 03/05/25 11:38: [facility] is unable to accept patient due to insurance. Addendum entered by [facility] 03/05/25 11:07: [facility] is not able to accept this patient. [facility], [facility] and [facility] are reviewing. Original Note: I spoke w/ patient regarding plans once medically stable for discharge. PT/OT evaluated patient and recommended SNF level of care. Patient's daughter (Allie [phone]) is present at bedside. Patient/daughter are agreeable to placement and prefer short term care. Patient/daughter prefer to stay local in [place]. Daughter is fine w/ [facility] if [place] facilities are unable to accept. Patient information will be faxed to [facility], [facility], [facility] and [facility]. CM will continue to follow up.
--- NOTE | 2025-03-05 10:36 | HMH.PTEV ---
Physical Therapy Evaluation Rehab PT IP Evaluation Start: 03/04/25 18:53 Freq: ONCE Status: Active Protocol: Document 03/05/25 10:18 ANATOLIY (Rec: 03/05/25 10:30 ANATOLIY [id number]) Subjective/History History History Per H&P: This 79-year-old patient with a history of dementia and hallucinations being on psychiatric medications and hypertensive drugs., Also noting a history of hypothyroidism being on thyroid medication. Patient history also includes syncope at home has been to the ER last time in 2023 and left AMA. Patient does live alone according to her daughter and the daughter checks on her. During the exam the patient stated that she did not live alone her mom and dad still live with her. I asked her if she takes care of them she said no they take care of themselves. Patient may require placement after this as she lives alone unsure of how her medications are been taken and get a check for an alcohol level check her hemoglobin A1c noting also that her weight has increased from approximately 180 by history to 211. Question's CHF versus renal failure. Patient noted of having a chronically elevated creatinine. Also noting a CT scan calcium changes to vessels of the brain and some loss of cerebral mass related to a presently her blood sugars are greater than 230. Will continue to evaluate her labs hydrations levels and her creatinine kinase. Also will look for any development of hematomas or any skin breakdown related to lying on the ground for an unknown amount of time. Subjective Subjective Pt only able to state name. Pt very lethargic at time of PT evaluation. New diagnosis of No cancer in past 12 months? [facility] How much help from another person do you currently need... Turning from your Total back to your side while in a flat bed without using bedrails? Moving from lying on Total back to sitting on the side of a flat bed without using bedrails? Moving to and from a Total bed to a chair ( including a wheelchair)? Standing up from a Total chair using your arms? (e.g., wheelchair, bedside chair) Walking in hospital Total room? Climbing 3-5 steps Total with a railing? Mobility Score 6 Mobility Level [facility] Mobility 2 Bed activities/dependent transfer Mobility Calculator Rehab PT IP Eval Objective Appearance Patient Behavior Fatigued,Asleep,Confused Patient Orientation Person,Place Difficulty following none instructions Speech Pattern Soft-Spoken,Mumbled,Poor Articulation Ambulation Patient Able to No Ambulate Balance Ability to Arise Unable Transfers Bed Transfer Ability Total/Dependent (100%) Rehab PT IP prob,goals,plan Problems Date of Evaluation: 03/05/25 PT IP Problems Bed Mobility,Transfers,Self care,Safety Rehab Potential Rehab Potential Good Plan PT Intervention Plan Bed Mobility,Transfers,Gait,Balance,Self care,Safety, Therapeutic Exercise Other Intervention 1-2 times Plan PT Plan Frequency Daily Duration LOS Discharge Goals Bed Transfer Ability Maximum x 1 (75% assist) Sit to Stand Chair Maximum x 2 (75% assist) Transfer Ability Discharge Plan PT Discharge Plan Initial physical therapy evaluation performed. Patient presents below baseline at this time in functional mobility, transfers, and strength. Pt not safe to return home at this time d/t current level of functional mobility. PT recommending short-term rehabilitation stay upon d/c from [facility]. Pt would benefit from skilled PT while at [facility] to prevent further functional decline and maximize safety with mobility. Eval Complexity Eval Charge Codes 01347 - Moderate Complexity PHYSICIAN CERTIFICATION: I certify the specified therapy services for Yue Chew are required, authorized, and reviewed every 30 days.
[2025-03-05 11:40] LABS: POC Glucose,Bedside 148 (70-110)
[2025-03-05] MEDS: MAGNESIUM SULFATE IN WATER 2 GM/50 ML PIGGYBACK IV ×2 (12:14→13:53)
--- NOTE | 2025-03-05 12:27 | P.PN_ITS ---
Subjective *Date: 03/05/25 *Time: 12:27 Interval history: Patient sleeping in the bed. Daughter at bedside. Patient opens her eyes when I speak with her, but does not respond. Daughter states she is exhausted as she has not slept much since admission. Discussed with daughter patient's living situation, currently patient lives alone and is unable to take care of her herself. Daughter agrees that short-term rehab may be a good option at this time. Medical Exam Vital signs and Labs for Last 24 Hours: Vital Signs Temp Pulse Pulse Resp BP BP BP 03/05/25 11:00 03/05/25 09:00 03/05/25 08:00 03/05/25 07:56 98 F 88 18 03/05/25 06:59 03/05/25 05:00 03/05/25 04:00 98.7 F 95 H 18 03/05/25 03:00 03/05/25 01:00 03/04/25 23:00 03/04/25 21:00 03/04/25 20:31 150/88 H 170/93 H 03/04/25 20:02 98.6 F 63 16 03/04/25 20:01 03/04/25 20:00 03/04/25 20:00 03/04/25 18:55 03/04/25 18:29 99.1 F 94 H 16 103/65 L 03/04/25 17:30 112/65 03/04/25 17:22 03/04/25 17:20 94 H 110/67 03/04/25 17:00 96 H 129/76 03/04/25 16:30 97 H 136/77 03/04/25 16:00 96 H 137/81 03/04/25 15:30 107 H 150/89 H 03/04/25 15:27 100 H 148/92 H 03/04/25 15:01 98 H 150/85 H 03/04/25 14:29 108 H 172/88 H 03/04/25 14:00 106 H 166/97 H 03/04/25 13:30 105 H 160/98 H 03/04/25 13:26 110 H 162/92 H 03/04/25 12:29 99.4 F 102 H 17 167/101 H BP BP Pulse Ox O2 Del Method 03/05/25 11:00 Room Air 03/05/25 09:00 Room Air 03/05/25 08:00 Room Air 03/05/25 07:56 130/77 96 Room Air 03/05/25 06:59 Room Air 03/05/25 05:00 Room Air 03/05/25 04:00 143/79 H 94 L Room Air 03/05/25 03:00 Room Air 03/05/25 01:00 Room Air 03/04/25 23:00 Room Air 03/04/25 21:00 Room Air 03/04/25 20:31 189/104 H 03/04/25 20:02 150/88 H 96 Room Air 03/04/25 20:01 189/104 H 03/04/25 20:00 Room Air 03/04/25 20:00 170/93 H 03/04/25 18:55 Room Air 03/04/25 18:29 Room Air 03/04/25 17:30 03/04/25 17:22 Room Air 03/04/25 17:20 96 03/04/25 17:00 03/04/25 16:30 03/04/25 16:00 95 03/04/25 15:30 95 03/04/25 15:27 95 03/04/25 15:01 95 03/04/25 14:29 96 03/04/25 14:00 96 03/04/25 13:30 97 03/04/25 13:26 96 03/04/25 12:29 95 Room Air Intake and Output 03/04/25 03/05/25 03/05/25 23:59 07:59 15:59 Intake Total 180 / 180 Output Total 450 / 450 350 / 350 Balance -450 / -270 -170 / -170 Intake: Intake, Oral Amount 180 / 180 Output: Output, Urine Amount 450 / 450 350 / 350 Other: Number of Unmeasured Voids 1 Number of Bowel Movements 1 Weight 95.708 kg 97.976 kg Patient Weight 03/05/25 23:59 Weight 97.976 kg Laboratory Results - last 24 hr 03/04/25 12:14: WBC 11.0 H, RBC 4.35, Hgb 12.7, Hct 38.5, MCV 88.5, MCH 29.2, MCHC 33.0, RDW 14.1, Plt Count 349, MPV 11.0 H, Neut % (Auto) 87.8 H, Lymph % (Auto) 5.9 L, [place] % (Auto) 4.9, Eos % (Auto) 0.6, Baso % (Auto) 0.5, Neut # (Auto) 9.7 H, Lymph # (Auto) 0.7, [place] # (Auto) 0.5, Eos # (Auto) 0.1, Baso # (Auto) 0.1, Sodium 136, Potassium 3.6, Chloride 103, Carbon Dioxide 25, Anion Gap 11.6, BUN 19 H, Creatinine 0.80, Estimated Creat Clear 61, Estimated GFR 70, Est GFR ( Amer) 84, Glucose 173 H, Hemoglobin A1c 6.9 H, Calcium 9.5, Total Bilirubin 0.7, AST 50 H, ALT 32, Alkaline Phosphatase 146 H, Total Creatine Kinase 814 H*, Total Protein 7.7, Albumin 3.9, Globulin 3.8 H, Albumin/Globulin Ratio 1.0 L, HCV Ab JOSSY w/Rflx PCR Qn Negative, HIV Ag/Ab Combo Qual Negative 03/04/25 15:33: Urine Color Yellow, Urine Appearance Clear, Urine pH 6.0, Ur Specific [place] 1.025, Urine Protein Trace, Urine Glucose (UA) Negative, Urine Ketones Negative, Urine Blood Trace-i, Urine Nitrate Negative, Urine Bilirubin Negative, Urine Urobilinogen 0.2, Ur Leukocyte Esterase Negative, Urine RBC Occasional, Urine WBC 5-10, Ur Squamous Epith Cells 10-20, Urine Bacteria 3+ 03/04/25 21:32: Troponin I 0.05 H, Plasma/Serum Alcohol < 10 03/05/25 05:34: WBC 9.0, RBC 3.94 L, Hgb 11.6 L, Hct 34.3 L, MCV 87.1, MCH 29.4, MCHC 33.8, RDW 14.1, Plt Count 277, MPV 10.4, Neut % (Auto) 84.0 H, Lymph % (Auto) 10.8, [place] % (Auto) 4.2, Eos % (Auto) 0.3, Baso % (Auto) 0.4, Neut # (Auto) 7.5, Lymph # (Auto) 1.0, [place] # (Auto) 0.4, Eos # (Auto) 0.0, Baso # (Auto) 0.0, Sodium 135 L, Potassium 3.0 L, Chloride 103, Carbon Dioxide 27, Anion Gap 8.0, BUN 14 D, Creatinine 0.70, Estimated Creat Clear 73, Estimated GFR 81, Est GFR ( Amer) 98, Glucose 147 H, Lactate 1.9, Calcium 8.7, Magnesium 1.7, Total Bilirubin 1.2, AST 44 H, ALT 22 D, Alkaline Phosphatase 116, Total Creatine Kinase 534 H* D, Troponin I 0.04 H, Total Protein 6.0 L, Albumin 2.9 L D, Globulin 3.1, Albumin/Globulin Ratio 0.9 L 03/05/25 11:34: POC Glucose 148 H I & O for Labs for Last 24 Hours: Intake & Output 03/02/25 03/03/25 03/04/25 03/05/25 23:59 23:59 23:59 23:59 Intake Total 180 / 180 Output Total 450 / 450 350 / 350 Balance -450 / -270 -170 / -170 Weight 95.708 kg 97.976 kg Constitutional: Present no acute distress and chronically ill appearing Head: Present atraumatic Neck: Present normal inspection and trachea midline Respiratory: Present CTA bilaterally, normal respiratory effort, able to speak in complete sentences and symmetric chest movement; Absent wheezes or crackles Cardiac: Present Reg Rate and Rhythm GI: Present soft and normal bowel sounds; Absent distention or tenderness Rectal (female): Present deferred (female): Present deferred Extremities: Present normal inspection and edema (1+ bilateral lower extremities); Absent tenderness Skin: Present intact and dry Neuro: Present Weakness Assessment and Plan *Assessment and plan (1) Rhabdomyolysis: Status: Acute Qualifiers: Rhabdomyolysis type: traumatic Encounter type: initial encounter Qualified Code(s): T79.6XXA - Traumatic ischemia of muscle, initial encounter Category: Medical Code(s): M62.82 - Rhabdomyolysis (2) Falling episodes: Status: Acute Category: Medical Code(s): R29.6 - Repeated falls (3) Diabetes mellitus: Status: Acute Qualifiers: Diabetes mellitus type: type 2 Diabetes mellitus 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
--- NOTE | 2025-03-05 13:40 | EXP.CARD.CON ---
History of Present Illness History of Present Illness Consult date: 03/05/25 Chief complaint: fall History of present illness: This is a 79-year-old white female who presented to the emergency department after being found on the ground at home after a fall. The patient lives alone. Her daughter goes to check on her from time to time and she found her mother on the floor for an unknown period of time and what appears to be after a fall. The patient is unable to tell us anything about the fall. She does not know what happened. The patient does have an abrasion on the right side of her forehead per the daughter's report in the emergency department. The patient has been complaining of pain in her back since the fall and as well as weakness in her legs. She denies any chest pain or pressure. She denies any shortness of breath or edema. She denies any fever, chills, nausea, vomiting or diarrhea. The patient did have an elevated CK P consistent with rhabdomyolysis. She also had a slight elevation in her troponin. [facility] Disclaimer: The information contained in this section may have been updated after the patient was seen, as this information can be updated by other users. Medical History (Updated 03/05/25 @ 13:52 by Polly Kong APRN) Elevated troponin Lung nodules Tinnitus Nasal abrasion Contusion of nose Epistaxis Epistaxis, recurrent Auditory hallucinations Atypical chest pain Skin tear Left against medical advice Falling episodes Diabetes mellitus Normal hysteroscopy HLD (hyperlipidemia) Hypothyroidism Dementia HTN (hypertension) Surgical History H/O tubal ligation Hx of appendectomy Family History (Updated 03/04/25 @ 18:52 by Bibi Jesus RN) Other No significant family history Social History (Updated 03/04/25 @ 18:52 by Bibi Jesus RN) Smoking Status: Never smoker alcohol intake: never substance use type: denies use current occupational status: retired Travel in the last 8 weeks?: None housing: house Have you lived/traveled outside [place] in past 30 days?: No Contact w/someone who lives/traveled outside [place] past 30 days?: No Exposure to someone with infectious disease in past 14 days?: No Do you have a fever (greater than 100.4 F or 38 C)?: No Have you tested positive for COVID-19?: No Exposed to someone with COVID-19 in past 14 days?: No Do you have a sore throat?: No Do you have a cough?: No Do you have any weakness?: No Are you experiencing any nausea/vomitting?: No Do you have any diarrhea?: No Are you experiencing any unusual bleeding?: No Do you have any muscle aches/pain?: No Do you have any abdominal pain?: Yes Are you experiencing loss of taste or smell?: No Review of Systems Review of Systems Review of systems:: pertinent systems reviewed and negative unless documented below Constitutional Constitutional: Reports fatigue, Reports frequent falls and Reports weakness Eyes Eyes: Reports system reviewed and no additional complaints, except as documented ENT Ears, Nose, Mouth, and Throat: Reports system reviewed and no additional complaints, except as documented *Cardiovascular Cardiovascular: Reports system reviewed and no additional complaints, except as documented *Respiratory Respiratory: Reports system reviewed and no additional complaints, except as documented *Gastrointestinal Gastrointestinal: Reports system reviewed and no additional complaints, except as documented *Musculoskeletal Musculoskeletal: Reports abnormal gait and Reports back pain Integumentary/Breasts Skin/Breast: Reports system reviewed and no additional complaints, except as documented *Neurologic Neurologic: Reports abnormal gait, Reports behavioral changes, Reports confusion, Reports frequent falls, Reports memory loss and Reports weakness Psychiatric Psychiatric: Reports behavioral changes, Reports confusion and Reports memory loss Endocrine Endocrine: Reports system reviewed and no additional complaints, except as documented and Reports fatigue Hematologic/Lymphatic Hematologic/Lymphatic: Reports system reviewed and no additional complaints, except as documented Allergic/Immunologic Allergic/Immunologic: Reports system reviewed and no additional complaints, except as documented Exam Data for Last 24 hours Vital signs and Labs for Last 24 Hours: Temp Pulse Resp BP Pulse Ox O2 Del Method 98 F 88 18 130/77 96 Room Air 03/05/25 07:56 03/05/25 07:56 03/05/25 07:56 03/05/25 07:56 03/05/25 07:56 03/05/25 11:00 Laboratory Results - last 24 hr 03/04/25 12:14: Hemoglobin A1c 6.9 H 03/04/25 15:33: Urine Color Yellow, Urine Appearance Clear, Urine pH 6.0, Ur Specific [place] 1.025, Urine Protein Trace, Urine Glucose (UA) Negative, Urine Ketones Negative, Urine Blood Trace-i, Urine Nitrate Negative, Urine Bilirubin Negative, Urine Urobilinogen 0.2, Ur Leukocyte Esterase Negative, Urine RBC Occasional, Urine WBC 5-10, Ur Squamous Epith Cells 10-20, Urine Bacteria 3+ 03/04/25 21:32: Troponin I 0.05 H, Plasma/Serum Alcohol < 10 03/05/25 05:34: WBC 9.0, RBC 3.94 L, Hgb 11.6 L, Hct 34.3 L, MCV 87.1, MCH 29.4, MCHC 33.8, RDW 14.1, Plt Count 277, MPV 10.4, Neut % (Auto) 84.0 H, Lymph % (Auto) 10.8, [place] % (Auto) 4.2, Eos % (Auto) 0.3, Baso % (Auto) 0.4, Neut # (Auto) 7.5, Lymph # (Auto) 1.0, [place] # (Auto) 0.4, Eos # (Auto) 0.0, Baso # (Auto) 0.0, Sodium 135 L, Potassium 3.0 L, Chloride 103, Carbon Dioxide 27, Anion Gap 8.0, BUN 14 D, Creatinine 0.70, Estimated Creat Clear 73, Estimated GFR 81, Est GFR ( Amer) 98, Glucose 147 H, Lactate 1.9, Calcium 8.7, Magnesium 1.7, Total Bilirubin 1.2, AST 44 H, ALT 22 D, Alkaline Phosphatase 116, Total Creatine Kinase 534 H* D, Troponin I 0.04 H, Total Protein 6.0 L, Albumin 2.9 L D, Globulin 3.1, Albumin/Globulin Ratio 0.9 L 03/05/25 11:34: POC Glucose 148 H I & O for Last 24 hours: Intake & Output 03/02/25 03/03/25 03/04/25 03/05/25 23:59 23:59 23:59 23:59 Intake Total 180 / 180 Output Total 450 / 450 350 / 350 Balance -450 / -270 -170 / -170 Weight 211 lb 216 lb Constitutional Constitutional: no acute distress and obese *Routine HEENT Exam Head: Present normocephalic and atraumatic ENT: Present mucous membranes moist *Routine Neck Exam Neck: Present supple, full ROM and normal carotid upstroke; Absent JVD, carotid bruit or lymphadenopathy *Routine Respiratory Exam Respiratory: Present CTA bilaterally, normal respiratory effort, able to speak in complete sentences and symmetric chest movement *Routine Cardiovascular Exam Cardiovascular: Present RRR, Normal S1 and Normal S2; Absent murmur or gallop *Routine Abdominal Exam Abdominal: Present soft and normoactive bowel sounds; Absent tenderness, distended or organomegaly *Routine Extremities Exam Extremities: Present full ROM, pulses intact and normal capillary refill; Absent cyanosis, clubbing or edema *Routine Skin Exam Skin: Present intact and warm; Absent erythema *Routine Neurological Exam Neurological: Present alert, oriented X3 and CN II-XII intact; Absent sensory deficit or motor deficit Routine Psychiatric Exam Psychiatric: Present normal affect Meds Home Medications and Allergies Home Medications ?Medication ?Instructions ?Recorded ?Confirmed ?Type atorvastatin 20 mg tablet 20 mg PO DAILY 90 days 08/13/17 03/04/25 History levothyroxine 137 mcg tablet 137 mcg PO DAILY 90 days 08/13/17 03/04/25 History aspirin 81 mg tablet,delayed 81 mg PO DAILY Heart disease 12/28/19 03/04/25 History release buspirone 10 mg tablet 10 mg PO BID 09/13/22 03/04/25 History lisinopril 20 mg tablet 20 mg PO DAILY 09/13/22 03/04/25 History cariprazine 1.5 mg capsule 1.5 mg PO DAILY 03/04/25 03/04/25 History (Vraylar) ergocalciferol (vitamin D2) 1,250 1,250 mcg PO WEEKLY 03/04/25 03/05/25 History mcg (50,000 unit) capsule (Vitamin D2) fluticasone propionate 50 1 spray intranasal DAILY 03/04/25 03/04/25 History mcg/actuation nasal spray,suspension furosemide 20 mg tablet 20 mg PO BID 03/04/25 03/05/25 History mirtazapine 15 mg tablet 15 mg PO DAILY 03/04/25 03/04/25 History estradiol 1 mg tablet 1 mg PO DAILY 03/05/25 03/05/25 History New Prescriptions to Start Prescriptions: Allergies Allergy/AdvReac Type Severity Reaction Status Date / Time No Known Allergies Allergy Verified 04/10/19 13:32 Assessment and Plan *Assessment and plan (1) Elevated troponin: Status: Acute Category: Medical Code(s): R79.89 - Other specified abnormal findings of blood chemistry (2) Rhabdomyolysis: Status: Acute Qualifiers: Rhabdomyolysis type: traumatic Encounter type: initial encounter Qualified Code(s): T79.6XXA - Traumatic ischemia of muscle, initial encounter Category: Medical Code(s): M62.82 - Rhabdomyolysis (3) Diabetes mellitus: Status: Acute Qualifiers: Diabetes mellitus type: type 2 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 The patient was admitted to the hospital for rhabdomyolysis after a fall and being found on the ground by her daughter. The patient had been down on the ground for an unknown amount of time. It is not clear how the patient fell and she does not recall the fall or what happened prior to this. She is currently being treated for the rhabdomyolysis. 2. The patient did have an elevated troponin on admission. This is most likely a type II non-STEMI from the rhabdomyolysis and fall. 3. Will obtain an echocardiogram to evaluate her LV function. 4. Her blood pressure is well-controlled. 5. Her LDL goal is less than 100. Will get a liver and lipid panel in the morning. 6. The patient is diabetic. She will need aggressive control of her diabetes. Will defer this to the hospitalist. 7. Further recommendations were made pending the patient's response to treatment and the results of her echocardiogram today. Thank you for the opportunity to help participate in the care of this patient. All recommendations and orders are per Dr. Estrada.
--- NOTE | 2025-03-05 14:44 | P.DS_ITS ---
<Statement entered by José Miguel Bee MD - 03/06/25 11:42> Personally evaluated patient and agree with the plan of care as outlined by the CONTENT DEVELOPMENT MANAGER. General Admission date:: 03/04/25 Discharge date: 03/05/25 HPI HPI HPI: This 79-year-old patient with a history of dementia and hallucinations being on psychiatric medications and hypertensive drugs., Also noting a history of hypothyroidism being on thyroid medication. Patient history also includes syncope at home has been to the ER last time in 2023 and left AMA. Patient does live alone according to her daughter and the daughter checks on her. During the exam the patient stated that she did not live alone her mom and dad still live with her. I asked her if she takes care of them she said no they take care of themselves. Patient may require placement after this as she lives alone unsure of how her medications are been taken and get a check for an alcohol level check her hemoglobin A1c noting also that her weight has increased from approximately 180 by history to 211. Question's CHF versus renal failure. Patient noted of having a chronically elevated creatinine. Also noting a CT scan calcium changes to vessels of the brain and some loss of cerebral mass related to a presently her blood sugars are greater than 230. Will continue to evaluate her labs hydrations levels and her creatinine kinase. Also will look for any development of hematomas or any skin breakdown related to lying on the ground for an unknown amount of time. Hospital Course Hospital Course Hospital Course: Ms. Chew is a 79-year-old female who presented to the emergency department yesterday after a fall in her home. Patient is unsure how she fell or how long she was on the ground. Her daughter came to visit and found her on the floor. EMS was called and she was transported to the ED. Since that time she has complained of generalized weakness, more significant in her lower extremities, back, hips. She has a primary medical history of hypothyroidism, hypertension, mood disorder, dementia, and HFpEF. She had workup in the ED which showed rhabdomyolysis with a CK of 800, CT's of head/cervical spine/pelvis/lumbar spine were all negative for acute fractures or injury. Discussion was had with hospital medicine for admission due to mild rhabdomyolysis, generalized weakness, and physical deconditioning. Hospital medicine agreed to except, plan of care was as follows: #Rhabdomyolysis #Generalized weakness #Physical deconditioning ? Patient pleasant this morning, no signs of distress or complaints of pain. Daughter is at bedside, after interactive discussion daughter states patient has been more confused and generally weak recently. Patient agrees she has not been able to care for herself as well as she normally does. ? PT/OT were consulted, recommendations for SNF at discharge to prevent further functional decline and maximize safety with mobility. Per their report patient is below baseline at this time and functional mobility, transfers, and strength. Patient and family are amendable to placement, would prefer somewhere in [place]. ? Care management/social work consulted, patient was accepted at [facility], plan of care discussed with patient and family who are both agr eeable to discharge to [facility]. ? Patient initial CK was 814, trended down to 534 today. Patient was given gentle rehydration on admission. Kidney function remained stable creatinine 0 .7. #Diabetes mellitus, type II ? Patient A1c on admission 6.9%. Does not appear the patient had a previous diagnosis of diabetes. Will initiate metformin 500 mg twice daily. Recheck A1c in approximately 3 months. #Elevated troponin, non-STEMI type II #HFpEF ? Continue lisinopril 20 mg daily and Lasix 20 mg twice daily ? Patient troponin on admission elevated 0.05 trending downward to 0.04. Patient denies chest pain. Cardiology consulted, no further recommendations at this time. Echo pending at discharge, prelim shows EF greater than 50%. #Lung nodules ? Chest x-ray in the ED showed nodular density projecting at the left lung base may correspond to overlapping densities or potential pulmonary nodule recomme nding follow-up nonemergent noncontrast CT. Patient should have this done on a outpatient basis per guidelines. #Dementia: Continue buspirone 10 mg twice daily, Vraylar 1.5 mg daily, mirtazapine 15 mg daily. #Hypothyroidism: Continue levothyroxine 137 mcg daily. TSH at discharge pending. #Hyperlipidemia: Continue atorvastatin 20 mg daily and aspirin 81 mg daily ?Continue estradiol 1 mg daily, vitamin D2 1250 mcg weekly Total time spent on discharge 38 minutes in counseling, documentation, chart review, and direct care with patient. Exam Data for Last 24 hours Vital signs and Labs for Last 24 Hours: Temp Pulse Resp BP Pulse Ox O2 Del Method 98 F 88 18 130/77 96 Room Air 03/05/25 07:56 03/05/25 07:56 03/05/25 07:56 03/05/25 07:56 03/05/25 07:56 03/05/25 13:00 Laboratory Results - last 24 hr 03/04/25 12:14: Hemoglobin A1c 6.9 H 03/04/25 15:33: Urine Color Yellow, Urine Appearance Clear, Urine pH 6.0, Ur Specific [place] 1.025, Urine Protein Trace, Urine Glucose (UA) Negative, Urine Ketones Negative, Urine Blood Trace-i, Urine Nitrate Negative, Urine Bilirubin Negative, Urine Urobilinogen 0.2, Ur Leukocyte Esterase Negative, Urine RBC Occasional, Urine WBC 5-10, Ur Squamous Epith Cells 10-20, Urine Bacteria 3+ 03/04/25 21:32: Troponin I 0.05 H, Plasma/Serum Alcohol < 10 03/05/25 05:34: WBC 9.0, RBC 3.94 L, Hgb 11.6 L, Hct 34.3 L, MCV 87.1, MCH 29.4, MCHC 33.8, RDW 14.1, Plt Count 277, MPV 10.4, Neut % (Auto) 84.0 H, Lymph % (Auto) 10.8, [place] % (Auto) 4.2, Eos % (Auto) 0.3, Baso % (Auto) 0.4, Neut # (Auto) 7.5, Lymph # (Auto) 1.0, [place] # (Auto) 0.4, Eos # (Auto) 0.0, Baso # (Auto) 0.0, Sodium 135 L, Potassium 3.0 L, Chloride 103, Carbon Dioxide 27, Anion Gap 8.0, BUN 14 D, Creatinine 0.70, Estimated Creat Clear 73, Estimated GFR 81, Est GFR ( Amer) 98, Glucose 147 H, Lactate 1.9, Calcium 8.7, Magnesium 1.7, Total Bilirubin 1.2, AST 44 H, ALT 22 D, Alkaline Phosphatase 116, Total Creatine Kinase 534 H* D, Troponin I 0.04 H, Total Protein 6.0 L, Albumin 2.9 L D, Globulin 3.1, Albumin/Globulin Ratio 0.9 L 03/05/25 11:34: POC Glucose 148 H Temp Pulse Resp BP Pulse Ox O2 Del Method 98 F 88 18 130/77 96 Room Air 03/05/25 07:56 03/05/25 07:56 03/05/25 07:56 03/05/25 07:56 03/05/25 07:56 03/05/25 11:00 Laboratory Results - last 24 hr 03/04/25 12:14: Hemoglobin A1c 6.9 H 03/04/25 15:33: Urine Color Yellow, Urine Appearance Clear, Urine pH 6.0, Ur Specific [place] 1.025, Urine Protein Trace, Urine Glucose (UA) Negative, Urine Ketones Negative, Urine Blood Trace-i, Urine Nitrate Negative, Urine Bilirubin Negative, Urine Urobilinogen 0.2, Ur Leukocyte Esterase Negative, Urine RBC Occasional, Urine WBC 5-10, Ur Squamous Epith Cells 10-20, Urine Bacteria 3+ 03/04/25 21:32: Troponin I 0.05 H, Plasma/Serum Alcohol < 10 03/05/25 05:34: WBC 9.0, RBC 3.94 L, Hgb 11.6 L, Hct 34.3 L, MCV 87.1, MCH 29.4, MCHC 33.8, RDW 14.1, Plt Count 277, MPV 10.4, Neut % (Auto) 84.0 H, Lymph % (Auto) 10.8, [place] % (Auto) 4.2, Eos % (Auto) 0.3, Baso % (Auto) 0.4, Neut # (Auto) 7.5, Lymph # (Auto) 1.0, [place] # (Auto) 0.4, Eos # (Auto) 0.0, Baso # (Auto) 0.0, Sodium 135 L, Potassium 3.0 L, Chloride 103, Carbon Dioxide 27, Anion Gap 8.0, BUN 14 D, Creatinine 0.70, Estimated Creat Clear 73, Estimated GFR 81, Est GFR ( Amer) 98, Glucose 147 H, Lactate 1.9, Calcium 8.7, Magnesium 1.7, Total Bilirubin 1.2, AST 44 H, ALT 22 D, Alkaline Phosphatase 116, Total Creatine Kinase 534 H* D, Troponin I 0.04 H, Total Protein 6.0 L, Albumin 2.9 L D, Globulin 3.1, Albumin/Globulin Ratio 0.9 L 03/05/25 11:34: POC Glucose 148 H I & O for Last 24 hours: Intake & Output 03/02/25 03/03/25 03/04/25 03/05/25 23:59 23:59 23:59 23:59 Intake Total 790 / 790 Output Total 450 / 450 350 / 350 Balance -450 / -270 440 / 440 Weight 95.708 kg 97.976 kg Intake & Output 03/02/25 03/03/25 03/04/25 03/05/25 23:59 23:59 23:59 23:59 Intake Total 180 / 180 Output Total 450 / 450 350 / 350 Balance -450 / -270 -170 / -170 Weight 211 lb 216 lb Constitutional Constitutional: no acute distress, obese, chronically ill appearing and somnolent *Routine HEENT Exam Head: Present normocephalic and atraumatic ENT: Present mucous membranes moist *Routine Neck Exam Neck: Present supple and full ROM *Routine Respiratory Exam Respiratory: Present CTA bilaterally, normal respiratory effort, able to speak in complete sentences and symmetric chest movement; Absent wheezes or crackles *Routine Cardiovascular Exam Cardiovascular: Present RRR, Normal S1 and Normal S2 *Routine Abdominal Exam Abdominal: Present soft and normoactive bowel sounds; Absent tenderness or distended *Routine Extremities Exam Extremities: Present edema (Trace edema lower extremities below the knee), full ROM and pulses intact *Routine Skin Exam Skin: Present intact, dry and warm; Absent erythema *Routine Neurological Exam Neurological: Present alert and oriented X3 Routine Psychiatric Exam Psychiatric: Present normal affect Results Data Completed and Pending Labs on day of discharge: Labs from last 24 hours 03/05/25 03/05/25 03/04/25 11:34 05:34 21:32 WBC 9.0 RBC 3.94 L Hgb 11.6 L Hct 34.3 L MCV 87.1 MCH 29.4 MCHC 33.8 RDW 14.1 Plt Count 277 MPV 10.4 Neut % (Auto) 84.0 H Lymph % (Auto) 10.8 Converse % (Auto) 4.2 Eos % (Auto) 0.3 Baso % (Auto) 0.4 Neut # (Auto) 7.5 Lymph # (Auto) 1.0 [place] # (Auto) 0.4 Eos # (Auto) 0.0 Baso # (Auto) 0.0 Sodium 135 L Potassium 3.0 L Chloride 103 Carbon Dioxide 27 Anion Gap 8.0 BUN 14 D Creatinine 0.70 Estimated Creat Clear 73 Estimated GFR 81 Est GFR ( Amer) 98 Glucose 147 H POC Glucose 148 H Hemoglobin A1c Lactate 1.9 Calcium 8.7 Magnesium 1.7 Total Bilirubin 1.2 AST 44 H ALT 22 D Alkaline Phosphatase 116 Total Creatine Kinase 534 H* D Troponin I 0.04 H 0.05 H Total Protein 6.0 L Albumin 2.9 L D Globulin 3.1 Albumin/Globulin Ratio 0.9 L Urine Color Urine Appearance Urine pH Ur Specific [place] Urine Protein Urine Glucose (UA) Urine Ketones Urine Blood Urine Nitrate Urine Bilirubin Urine Urobilinogen Ur Leukocyte Esterase Urine RBC Urine WBC Ur Squamous Epith Cells Urine Bacteria Plasma/Serum Alcohol < 10 03/04/25 03/04/25 15:33 12:14 WBC RBC Hgb Hct MCV MCH MCHC RDW Plt Count MPV Neut % (Auto) Lymph % (Auto) [place] % (Auto) Eos % (Auto) Baso % (Auto) Neut # (Auto) Lymph # (Auto) [place] # (Auto) Eos # (Auto) Baso # (Auto) Sodium Potassium Chloride Carbon Dioxide Anion Gap BUN Creatinine Estimated Creat Clear Estimated GFR Est GFR ( Amer) Glucose POC Glucose Hemoglobin A1c 6.9 H Lactate Calcium Magnesium Total Bilirubin AST ALT Alkaline Phosphatase Total Creatine Kinase Troponin I Total Protein Albumin Globulin Albumin/Globulin Ratio Urine Color Yellow Urine Appearance Clear Urine pH 6.0 Ur Specific [place] 1.025 Urine Protein Trace Urine Glucose (UA) Negative Urine Ketones Negative Urine Blood Trace-i Urine Nitrate Negative Urine Bilirubin Negative Urine Urobilinogen 0.2 Ur Leukocyte Esterase Negative Urine RBC Occasional Urine WBC 5-10 Ur Squamous Epith Cells 10-20 Urine Bacteria 3+ Plasma/Serum Alcohol DS: Diagnosis Discharge Diagnosis (1) Elevated troponin: Status: Acute Code(s): R79.89 - Other specified abnormal findings of blood chemistry (2) Rhabdomyolysis: Status: Acute Code(s): M62.82 - Rhabdomyolysis Qualifiers: Rhabdomyolysis type: traumatic Encounter type: initial encounter Qualified Code(s): T79.6XXA - Traumatic ischemia of muscle, initial encounter (3) Diabetes mellitus: Status: Acute Code(s): E11.9 - Type 2 diabetes mellitus without complications Qualifiers: Diabetes mellitus type: type 2 Diabetes mellitus correction insulin use: unspecified correction insulin use status Diabetes mellitus complication status: with other specified complication Qualified Code(s): E11.69 - Type 2 diabetes mellitus with other specified complication (4) Hypertension: Status: Acute Code(s): I10 - Essential (primary) hypertension Qualifiers: Hypertension type: primary hypertension Qualified Code(s): I10 - Essential (primary) hypertension (5) Non-STEMI (non-ST elevated myocardial infarction): Status: Acute Code(s): I21.4 - Non-ST elevation (NSTEMI) myocardial infarction (6) Falling episodes: Status: Acute Code(s): R29.6 - Repeated falls (7) (HFpEF) heart failure with preserved ejection fraction: Status: Acute Code(s): I50.30 - Unspecified diastolic (congestive) heart failure (8) Hypothyroidism: Status: Acute Code(s): E03.9 - Hypothyroidism, unspecified (9) Dementia: Status: Acute Code(s): F03.90 - Unspecified dementia, unspecified severity, without behavioral disturbance, psychotic disturbance, mood disturbance, and anxiety Meds Home Medications and Allergies Home Medications ?Medication ?Instructions ?Recorded ?Confirmed ?Type atorvastatin 20 mg tablet 20 mg PO DAILY 90 days 08/1303/04/25 History levothyroxine 137 mcg tablet 137 mcg PO DAILY 90 days 08/13/17 03/04/25 History aspirin 81 mg tablet,delayed 81 mg PO DAILY Heart dise ase 12/28/19 03/04/25 History release buspirone 10 mg tablet 10 mg PO BID 09/13/22 History lisinopril 20 mg tablet 20 mg PO DAILY 09/13/2202/16 History cariprazine 1.5 mg capsule 1.5 mg PO DAILY 03/04/25 History (Vraylar) ergocalciferol (vitamin D2) 1,250 1,250 mcg PO WEEKLY 03/04/25 03/05/25 History mcg (50,000 unit) capsule (Vitamin D2) fluticasone propionate 50 1 spray intranasal DAILY 03/04/25 History mcg/actuation nasal spray,suspension furosemide 20 mg tablet 20 mg PO BID 03/04/25 History mirtazapine 15 mg tablet 15 mg PO DAILY 03/04/2502/16 History estradiol 1 mg tablet 1 mg PO DAILY 03/05/2503/05 History metformin 500 mg tablet 500 mg PO BIDWMEAL #60 tabs 03/05/25 Rx New Prescriptions to Start Prescriptions: metformin Farzana Preciado Allergies Allergy/AdvReac Type Severity Reaction Status Date / Time No Known Allergies Allergy Verified 04/10/19 13:32 Discharge Plan Disposition Patient Disposition: Xfer SNF Condition: Fair Follow up Plan Follow up with: Polly Kong APRN [Nurse Practitioner, Cardiology] - Enter time for follow up Acosta Sol MD [Primary Care Provider, Internal Medicine] - Enter time for follow up Prescriptions/Medication Reconciliation: New metformin 500 mg tablet 500 mg PO BIDWMEAL Qty: 60 0RF Continued atorvastatin 20 mg tablet 20 mg PO DAILY 90 Days Patient Comments: levothyroxine 137 mcg tablet 137 mcg PO DAILY 90 Days Patient Comments: aspirin 81 MG tablet,delayed release (DR/EC) 81 mg PO DAILY lisinopril 20 mg tablet 20 mg PO DAILY buspirone 10 mg tablet 10 mg PO BID furosemide 20 mg tablet 20 mg PO BID mirtazapine 15 mg tablet 15 mg PO DAILY ergocalciferol (vitamin D2) [Vitamin D2] 1,250 mcg (50,000 unit) capsule 1,250 mcg PO WEEKLY fluticasone propionate 50 mcg/actuation spray,suspension 1 spray INTRANASAL DAILY Vraylar 1.5 mg capsule 1.5 mg PO DAILY estradiol 1 mg tablet 1 mg PO DAILY Problem Reconciliation Problems Reviewed?: Yes Patient Discharge Instructions ACTIVITY: Continue current activity, Ambulate as tolerated and Up with assistance DIET: diabetic diet Patient Instructions: DI for Rhabdomyolysis Print Language: Burundian Providers Primary Care Provider: Acosta Sol Admit Provider: José Miguel Bee Attending Provider: José Miguel Bee
[2025-03-05] MEDS: humaLOG 100 UNITS/ML 10ML VIAL (SSI) SUBCUT (15:50)
[2025-03-05] MEDS: LACTATED RINGERS 1000ML 500 ML IV (15:56)
[2025-03-05 16:29] LABS: POC Glucose,Bedside 181 (70-110)
--- NOTE | 2025-03-05 20:35 | PC.NURSE ---
Patient alert to self and place, understands she is going to [place] for rehab services. No issues with patient. EMS transporting patient at this time.
--- NOTE | 2025-03-05 21:23 | CA_ITS ---
APPROVED REPORT EXAM: Comprehensive 2D, Doppler, and color-flow Echocardiogram Spinner Cap Frame: Melodie Zapata CRT Ht: 5 ft 8 in Wt: 211lbs BSA: 2.09 BP: 103/65 mmHg Indications: Diabetes, Peripheral Edema, Hypertension/HDD M-Mode Dimensions RVDd 2.21 cm (0.9-2.6) LA Diam 4.02 cm (1.9-4.0) LVDd 4.11 cm (3.5-5.7) LVDs 2.93 cm (3.5-5.7) IVSd 1.94 cm (0.6-1.1) PWd 1.56 cm (0.6-1.1) EF (Teich) 55.80% FS 28.70% EDV (Teich) 74.70 mL TAPSE 2.61 (<1.7) ESV (Teich) 33.00 mL LV Diastology E Decel Time 162 (160-240 msec) E/A Ratio 1.17 MED A' 15.90 cm/s LAT A' 10.50 cm/s Aortic Valve AO Peak GR. 8.00 mmHg Mitral Valve MV E Max Parker. 104.0 (40-130 cm/s) MV A Velocity 88.0 (40-130 cm/s) E/A Ratio 1.17 MV PHT 47.0 ms Pulmonary Valve PV Peak Velocity 81.0 (50-150 cm/s) Tricuspid Valve TR P. Velocity 201.00 cm/s RAP Estimate 10.00 mmHg RVSP 26.10 mmHg Left Ventricle The left ventricle is normal size. Left ventricular systolic function is normal. The left ventricular ejection fraction is within the normal range. There is increased left ventricular wall thickness. There is normal LV segmental wall motion. The left ventricular diastolic function is indeterminate. LVEF is 60% Right Ventricle The right ventricle is mildly dilated. The right ventricular systolic function is mildly reduced. Atria The left atrium is mildly dilated. The right atrium is mildly dilated. There is no color Doppler evidence of interatrial shunt. Aortic Valve The aortic valve is mildly thickened. There is no hemodynamically significant aortic valvular stenosis. Trace aortic regurgitation is present. Mitral Valve The mitral valve is normal in structure. No evidence of mitral valve stenosis. Trace mitral regurgitation is present. Tricuspid Valve The tricuspid valve leaflets are thin and pliable. Trace tricuspid regurgitation. There is insufficient TR jet to estimate RVSP. Pulmonic Valve The pulmonary valve is grossly normal in structure. Trace pulmonic valve regurgitation is present. Great Vessels The aortic root is normal in size. The ascending aorta is mildly dilated, measuring 3.9 cm in diameter. IVC is normal in size and collapses >50% with inspiration. Pericardium There is no pericardial effusion. Other Information Study Quality: Fair Conclusion Normal LV systolic function. Mild RV dilation with mild reduction in RV function. Mild biatrial dilation. No significant valvular stenosis or regurgitation. The ascending aorta is mildly dilated, measuring 3.9 cm in diameter. Correlation with recent or new CTA chest is suggested. Electronically signed by : Karyn Estrada MD 03/05/2025 19:48:37
[2025-03-05 21:43] LABS: Folate 8.81 ng/mL
[2025-03-05 23:10] LABS: Thyroid Stimulating Hormone 1.87 uIU/mL (0.465-4.68)
[2025-03-05 23:29] LABS: Vitamin B12 208 pg/mL (239-931)
--- NOTE | 2025-03-06 10:06 | CARE MANAGER ---
Patient requires a hospital bed due to a medical condition which requires positioning of the body in ways not feasible with an ordinary bed.
[2025-03-12 11:50] LABS: POC Glucose,Bedside 148 (70-110)
== END 2025-03-05 20:35 ==
LOC: ER 15:19 → 2ND 17:29
PROVIDERS: Nurse Practitioner Family; Student in an Organized Health Care Education/Training Program; Admitting Provider Student in an Organized Health Care Education/Training Program; Emergency Provider Student in an Organized Health Care Education/Training Program; PCP Internal Medicine Adolescent Medicine; Visit Provider Student in an Organized Health Care Education/Training Program
DX: T79.6XXA Traumatic ischemia of muscle, initial encounter (principal); E11.65 Type 2 diabetes mellitus with hyperglycemia; I11.0 Hypertensive heart disease with heart failure; R29.6 Repeated falls; E03.9 Hypothyroidism, unspecified; F03.90 Unspecified dementia, unspecified severity, without behavioral disturbance, psychotic disturbance, mood disturbance, and anxiety; H83.2X1 Labyrinthine dysfunction, right ear; S00.83XA Contusion of other part of head, initial encounter; R79.89 Other specified abnormal findings of blood chemistry; R91.8 Other nonspecific abnormal finding of lung field; I25.2 Old myocardial infarction; E78.5 Hyperlipidemia, unspecified; E66.9 Obesity, unspecified; I50.31 Acute diastolic (congestive) heart failure; M16.0 Bilateral primary osteoarthritis of hip; I67.2 Cerebral atherosclerosis; M85.80 Other specified disorders of bone density and structure, unspecified site; N32.89 Other specified disorders of bladder; I44.0 Atrioventricular block, first degree; Z79.82 Long term (current) use of aspirin; Z79.899 Other long term (current) drug therapy; Z79.890 Hormone replacement therapy; Z68.32 Body mass index [BMI] 32.0-32.9, adult
CPT/HCPCS: 36415; 70450; 71045; 72125; 72128; 72131; 72170; 72192; 80053; 80320; 81001; 82550; 82607; 82746; 82962; 83036; 83605; 83735; 84443; 84484; 85025; 86803; 87086; 87389; 93005; 93306; 96361; 96374; 97162; 97166; 97530; 99283; G0378; J1650; J3475; J7120

== ENCOUNTER 2025-04-26 16:41 | Emergency (ER) | payer MEDICARE, OTHER, SELFPAY ==
[2025-04-26 16:45] VITALS: BP 197/116; PULSE 79; RESP 20; TEMP 36.6; O2SAT 93; BMI 36.3
[2025-04-26 16:47] VITALS: BP 197/116; PULSE 78; O2SAT 96
--- NOTE | 2025-04-26 16:47 | XR_ITS ---
PROCEDURE INFORMATION: Exam: XR Chest Exam date and time: 04/26/2025 4:54 PM Age: 79 years old Clinical indication: Shortness of breath; Additional info: Eval for pulmonary edema TECHNIQUE: Imaging protocol: Radiologic exam of the chest. Views: 1 view. COMPARISON: CR XR CHEST PORTABLE 03/04/2025 1:39 PM FINDINGS: Lungs: Unremarkable. No consolidation. Pleural spaces: Unremarkable. No pleural effusion. No pneumothorax. Heart/Mediastinum: Unremarkable. No cardiomegaly. Bones/joints: Unremarkable. IMPRESSION: No acute findings.
--- NOTE | 2025-04-26 16:51 | CA_ITS ---
FINAL REPORT TECHNIQUE: Ultrasound images of the deep venous system were obtained from the left groin to the calf veins. CLINICAL HISTORY: edema LLE > RLE. Patient denies trauma. States left leg has been red and swollen x 2 months. HTN, HLD. 325 ASA daily per patient. FINDINGS: The deep venous system is normally compressible. Normal flow is identified. IMPRESSION: No evidence of left lower extremity DVT. Reviewed, Interpreted and Dictated by Megan Mejia MD Transcribed by Alicia Funes Authenticated and [facility]
[2025-04-26 17:00] VITALS: BP 199/110; PULSE 77; O2SAT 91
[2025-04-26 17:04] LABS: Hematocrit 40.4 % (37.0-47.0); Hemoglobin 12.9 g/dL (12.2-16.2); Immature Granulocytes % 0.3 %; Mean Corpuscular HGB Conc 31.9 g/dL (31.8-35.4); Mean Corpuscular Hemoglobin 28.5 pg (27.0-31.2); Mean Corpuscular Volume 89.4 fl (81-99); Nucleated Red Blood Cells % 0 %; Platelet Count 248 K/mm3 (142-424); Red Blood Count 4.52 M/mm3 (4.20-5.40); Red Cell Distribution Width-SD 53.2 fL; White Blood Count 6.2 K/mm3 (4.8-10.8)
--- NOTE | 2025-04-26 17:09 | HMH.EDGENADL ---
Discharge Plan Disposition Patient Disposition: Left Against Medical Advice Condition: Good Prescriptions Prescriptions: No Action atorvastatin 20 mg tablet 20 mg PO DAILY 90 Days Patient Comments: levothyroxine 137 mcg tablet 137 mcg PO DAILY 90 Days Patient Comments: aspirin 81 MG tablet,delayed release (DR/EC) 81 mg PO DAILY lisinopril 20 mg tablet 20 mg PO DAILY buspirone 10 mg tablet 10 mg PO BID furosemide 20 mg tablet 20 mg PO BID mirtazapine 15 mg tablet 15 mg PO DAILY ergocalciferol (vitamin D2) [Vitamin D2] 1,250 mcg (50,000 unit) capsule 1,250 mcg PO WEEKLY fluticasone propionate 50 mcg/actuation spray,suspension 1 spray INTRANASAL DAILY Vraylar 1.5 mg capsule 1.5 mg PO DAILY estradiol 1 mg tablet 1 mg PO DAILY metformin 500 mg tablet 500 mg PO BIDWMEAL Qty: 60 0RF Referrals Follow up/Referrals: Acosta Sol MD [Primary Care Provider, Internal Medicine] - See instructions Clinical Impressions Clinical Impression: Left against medical advice, Venous stasis, Bilateral edema of lower extremity Print Language Print Language: Georgian Discharge ED Provider: Gael Gonzalez General Adult HPI General Chief complaint: Extremity Problem,Nontraumatic Stated complaint: Edema Time Seen by Provider: 04/26/25 16:45 Mode of Arrival: EMS Source of Information: Patient and EMS Description of Symptoms (Recalled from ER Triage Doc. by RN): pt reports swelling in her legs thats been there for 2 months. family got worried about her and called EMS today. pt states she hasnt been feeling weak she just doesnt want to get up and move. edema and redness to ble. History of Present Illness HPI narrative: This is a 79-year-old female patient, with past medical history of hypertension, hyperlipidemia, diabetes, hypothyroidism, HFpEF, and dementia, who is presenting to the emergency department today for evaluation of lower extremity edema. History seems somewhat limited secondary to the patient's baseline dementia. However, she tells me that she has been having worsening lower extremity edema over the course of the last couple of months. She states that she has had chronically developing erythema of the left lower extremity throughout this time. She has had no fevers. She states that the edema in her lower extremities interferes with her ability to walk appropriately and she is having pain in her feet with walking. She is having no chest pain or shortness of breath. However, she does tell me that she is unable to lay flat and this is unclear whether this is due to orthopnea or just positional discomfort. Related Data Home Medications ?Medication ?Instructions ?Recorded ?Confirmed atorvastatin 20 mg tablet 20 mg PO DAILY 90 days 08/13/17 03/04/25 levothyroxine 137 mcg tablet 137 mcg PO DAILY 90 days 08/13/17 03/04/25 aspirin 81 mg tablet,delayed 81 mg PO DAILY Heart disease 12/28/19 03/04/25 release buspirone 10 mg tablet 10 mg PO BID 09/13/22 03/04/25 lisinopril 20 mg tablet 20 mg PO DAILY 09/13/22 03/04/25 cariprazine 1.5 mg capsule 1.5 mg PO DAILY 03/04/25 03/04/25 (Vraylar) ergocalciferol (vitamin D2) 1,250 1,250 mcg PO WEEKLY 03/04/25 03/05/25 mcg (50,000 unit) capsule (Vitamin D2) fluticasone propionate 50 1 spray intranasal DAILY 03/04/25 03/04/25 mcg/actuation nasal spray,suspension furosemide 20 mg tablet 20 mg PO BID 03/04/25 03/05/25 mirtazapine 15 mg tablet 15 mg PO DAILY 03/04/25 03/04/25 estradiol 1 mg tablet 1 mg PO DAILY 03/05/25 03/05/25 Previous Rx's ?Medication ?Instructions ?Recorded metformin 500 mg tablet 500 mg PO BIDWMEAL #60 tabs 03/05/25 Allergies Allergy/AdvReac Type Severity Reaction Status Date / Time No Known Allergies Allergy Verified 04/10/19 13:32 [facility] Disclaimer: The information contained in this section may have been updated after the patient was seen, as this information can be updated by other users. Medical History (Updated 04/27/25 @ 00:10 by Gael Gonzalez DO) Non-STEMI (non-ST elevated myocardial infarction) Syncope and collapse Labyrinthine dysfunction of right ear Contusion of face Nasal bone fracture Elevated troponin Lung nodules Tinnitus Nasal abrasion Contusion of nose Epistaxis Epistaxis, recurrent Auditory hallucinations Atypical chest pain Skin tear Left against medical advice Falling episodes Diabetes mellitus Normal hysteroscopy HLD (hyperlipidemia) Hypothyroidism Dementia HTN (hypertension) Surgical History H/O tubal ligation Hx of appendectomy Family History (Updated 03/04/25 @ 18:52 by Bibi Jesus RN) Other No significant family history Social History (Updated 03/04/25 @ 18:52 by Bibi Jesus RN) Smoking Status: Current every day smoker alcohol intake: never substance use type: denies use current occupational status: retired Travel in the last 8 weeks?: None housing: house Have you lived/traveled outside [place] in past 30 days?: No Contact w/someone who lives/traveled outside [place] past 30 days?: No Exposure to someone with infectious disease in past 14 days?: No Do you have a fever (greater than 100.4 F or 38 C)?: No Have you tested positive for COVID-19?: No Exposed to someone with COVID-19 in past 14 days?: No Do you have a sore throat?: No Do you have a cough?: No Do you have any weakness?: No Do you have any diarrhea?: No Are you experiencing any unusual bleeding?: No Do you have any muscle aches/pain?: No Do you have any abdominal pain?: No Are you experiencing loss of taste or smell?: No Other Medical History Have you received the Flu Vaccine for this season: No Have you received the Pneumonia Vaccine: No ROS Obtained: Yes Systems reviewed as appropriate & no additional complaints except as documented Physical Exam General General appearance: other (See MDM) Respiratory Respiratory exam: Present other (See MDM) Cardiovascular Cardiovascular exam: Present other (See MDM) Neurological Exam Neurological exam: Present other (See MDM) Medical Decision Making Medical Records Medical records reviewed: Yes I reviewed the patient's medical records. Screening: Per USPSTF and CDC recommendations, given the prevalence of disease in our region, it is our hospital?s policy to screen for HIV and viral Hepatitis for all patients aged 18 and over and those with ongoing risk factors. Gustavo Inquiry Pt receiving controlled substance: No Gsutavo was queried for this patient: No Vital Signs: 04/26/25 16:45 04/26/25 16:47 04/26/25 17:00 Temperature 97.9 F Temperature Source Oral Pulse Rate 78 77 Pulse Rate [Right] 79 Respiratory Rate 20 Blood Pressure 197/116 H 199/110 H Blood Pressure [Right Arm] 197/116 H Blood Pressure Mean [Right Arm] 143 02 Sat by Pulse Oximetry 93 L 96 91 L Oxygen Delivery Method Nasal Cannula Room Air 04/26/25 17:31 04/26/25 18:59 Temperature 98.8 F Temperature Source Pulse Rate 75 75 Pulse Rate [Right] Respiratory Rate 20 Blood Pressure 169/107 H 169/107 H Blood Pressure [Right Arm] Blood Pressure Mean [Right Arm] 02 Sat by Pulse Oximetry 97 Oxygen Delivery Method Room Air Lab Data Lab Results 04/26/25 16:35: WBC 6.2, RBC 4.52, Hgb 12.9, Hct 40.4, MCV 89.4, MCH 28.5, MCHC 31.9, RDW 16.5, Plt Count 248, MPV 11.0 H, Neut % (Auto) 61.8, Lymph % (Auto) 23.0, [place] % (Auto) 10.2 H, Eos % (Auto) 3.7, Baso % (Auto) 1.0, Neut # (Auto) 3.8, Lymph # (Auto) 1.4, [place] # (Auto) 0.6, Eos # (Auto) 0.2, Baso # (Auto) 0.1, Sodium 134 L, Potassium 3.7, Chloride 98, Carbon Dioxide 26, Anion Gap 13.7, BUN 15, Creatinine 0.80, Estimated Creat Clear 76, Estimated GFR 70, Est GFR ( Amer) 84, Glucose 166 H, Calcium 8.7, Total Bilirubin 0.7, AST 34, ALT 21, Alkaline Phosphatase 146 H, Total Creatine Kinase 67, Troponin I < 0.01, NT-Pro-B Natriuret Pep 195, Total Protein 7.4, Albumin 3.7, Globulin 3.7 H, Albumin/Globulin Ratio 1.0 L, Lipase 208 04/26/25 16:35 04/26/25 16:35 Orders (Tests/Meds): ORDERS Category Date Time Status CXR --portable [XR chest portable] Stat Exams 04/26/25 16:47 Completed POCUS Point of Care (ER Only) Stat Exams 04/26/25 16:51 Completed BNP [NT Pro Brain Natriuretic Pep.] Stat Lab 04/26/25 16:35 Completed CBC w/Auto Diff [Complete Blood Count Auto Diff] Stat Lab 04/26/25 16:35 Completed CK [Creatine Kinase] Stat Lab 04/26/25 16:35 Completed CMP [Comprehensive Metabolic Panel] Stat Lab 04/26/25 16:35 Completed Lipase Stat Lab 04/26/25 16:35 Completed Troponin I Stat Lab 04/26/25 16:35 Completed CA venous doppler LE LT Stat Y 04/26/25 16:51 Completed ECG Data Tracing #1: I reviewed this ECG and interpreted as documented below: EKG personally interpreted by me demonstrates normal sinus rhythm at a rate of 72 bpm, left axis, MI prolongation consistent with first-degree AV block, narrow QRS, no QTc prolongation. No ST elevation or depression. No overt signs of ischemia or arrhythmia Medical Decision Narrative: In summary, this is a 79-year-old female patient who is presented to the emergency department today for evaluation of chronic bilateral lower extremity edema that is left on the left for lower extremity the right lower extremity over the course of last couple of months which is impacting her ability to ambulate appropriately. She has no overt chest pain or shortness of breath. Comorbidities include a past medical history of hypertension, hyperlipidemia, diabetes, HFpEF, and dementia. On initial evaluation of the patient they were resting comfortably in no acute distress and nontoxic in appearance. They are hemodynamically stable, saturating well room air, and are neurologically intact. On physical examination of the patient her heart and lungs are clear to auscultation bilaterally. She has no abdominal tenderness to palpation. She has bilateral lower extremity edema of which the left lower extremity is worse in the right lower extremity. There is mild erythema of the right lower extremity and significant erythema of the left lower extremity. My suspicion is that she has chronic venous stasis dermatitis. Differential diagnosis includes heart failure exacerbation, venous stasis, left lower extremity DVT, ACS/DE, pulmonary edema, pleural effusion, physical deconditioning, among others. Workup was initiated with hematologic labs as well as a chest x-ray and EKG. We also obtained a left lower extremity venous duplex to assess for DVT given that she had bilateral lower extremity swelling that was somewhat asymmetric with more significant edema of the left lower extremity. Labs were personally interpreted by me and demonstrate no leukocytosis or anemia. CMP revealed no significant electrolyte derangements or evidence of acute kidney injury. She has no significant transaminitis or elevation of bilirubin. Alkaline phosphatase is mildly elevated at 146 and is stable from prior. CK is normal. Troponin is less than 0.01. Delta troponin is pending. DVT study was obtained by the animal health technician who stated that there was no evidence of DVT. On my independent interpretation of the study I also did not appreciate a DVT Chest x-ray was personally interpreted by me and demonstrated no lobar consolidation or pleural effusion. Official radiology read is in agreement and states that there is no acute abnormality. My plan moving forward was to obtain a repeat delta troponin as well as perform a bedside POCUS assessment of the patient's heart. However, prior to me being able to do so the patient began requesting to leave the hospital AGAINST MEDICAL ADVICE and stated that she was tired of being here and wanted to go home and eat food. I was unable to speak with the patient prior to discharge. Nursing staff states that the patient signed out AGAINST MEDICAL ADVICE and left in the custody of her family members who are at the bedside. Critical Care Critical Care Time Critical Care Time: No
[2025-04-26 17:25] LABS: Alanine Aminotransferase 21 U/L (12-78); Albumin Level 3.7 g/dl (3.5-5.0); Albumin/Globulin Ratio 1.0 (1.1-1.8); Alkaline Phosphatase 146 U/L (38-126); Anion Gap 13.7 mEq/L (5-15); Aspartate Amino Transferase 34 U/L (14-36); Bilirubin,Total 0.7 mg/dl (0.2-1.3); Blood Urea Nitrogen 15 mg/dl (7-17); Calcium 8.7 mg/dl (8.4-10.2); Carbon Dioxide 26 mmol/L (22.0-30.0); Chloride 98 mmol/L (98-107); Creatine Kinase 67 U/L (30-135); Creatinine Clearance Estimated 76 mL/min (50-200); Creatinine,Serum 0.80 mg/dl (0.52-1.04); Estimated Glomerular Filt Rate 70 ml/min (>60); GFR (African American) 84 ML/MIN (>60); Globulin 3.7 g/dL (1.3-3.2); Glucose 166 mg/dl (74-100); Lipase 208 U/L (23-300); Potassium 3.7 mmoL/L (3.5-5.1); Sodium 134 mmol/L (136-145); Total Protein,Serum 7.4 g/dl (6.3-8.2)
--- NOTE | 2025-04-26 17:29 | ECG_ITS ---
APPROVED REPORT Exam: Resting ECG HR:72 bpm ECG Measurements Heart Rate 72 AXES WA 219 P 56 QRSd 113 QRS 0 QT 427 T 74 QTc 451 Conclusion sinus rhythm First-degree AV block No STEMI Electronically signed by : Gael Gonzalez, 04/27/2025 00:27:02
[2025-04-26 17:31] VITALS: BP 169/107; PULSE 75; O2SAT 97
[2025-04-26 17:37] LABS: NT Pro Brain Natriuretic Pep. 195 pg/mL (0-450)
[2025-04-26 17:41] LABS: Troponin I < 0.01 ng/ml (0.00-0.034)
[2025-04-26 18:59] VITALS: BP 169/107; PULSE 75; RESP 20; TEMP 37.1; O2SAT 97
== END 2025-04-26 19:00 | disposition left against medical advice (07) ==
PROVIDERS: Emergency Provider Student in an Organized Health Care Education/Training Program; PCP Internal Medicine Adolescent Medicine
DX: I87.303 Chronic venous hypertension (idiopathic) without complications of bilateral lower extremity (principal); R60.0 Localized edema; I44.0 Atrioventricular block, first degree
CPT/HCPCS: 71045; 80053; 82550; 83690; 83880; 84484; 85025; 93005; 93971; 99284

== ENCOUNTER 2025-05-08 12:38 | Emergency (ER) | payer MEDICARE, OTHER, SELFPAY ==
--- OUTSIDE RECORDS SUMMARY | 2025-05-05 20:00 | XMS_ITS | Clinical Summary ---
Author Organization Unknown Care Team Providers Care Environmental Manager Name Role Phone BRODERICK RANDHAWA, COOPER Unavailable Unavailable EDWIN RN, GRAHAM Unavailable Unavailable BLESSING PT, JESSICA Unavailable Unavailable SONNY BOILER HOUSE INSPECTOR, JENNIE Unavailable Unavailable LISA OT, ASHLEY Unavailable Unavailable SARAH SW, JUSTICE Unavailable Unavailable MICAH ST, MIGUEL Unavailable Unavailable Payers Payer Name Policy Type Policy Number Effective Date Expira tion Date [facility].[id number] H [id number] Problems Condition Name Condition Details Condition Category Status Onset Date Resolution Date Last Treatment Date Treating Clinician Comments TYPE 2 DIABETES MELLITUS WITH HYPERGLYCEMI A Active 03-04 00:00: 00 RHABDOMYOLYS IS Active 03-04 00:00: 00 NON-ST ELEVATION (NSTEMI) MYOCARDIAL INFARCTION Active 03-04 00:00: 00 HYPERTENSIVE HEART DISEASE WITH HEART FAILURE Active 07-19 00:00: 00 UNSPECIFIED DIASTOLIC (CONGESTIVE) HEART FAILURE Active 07-19 00:00: 00 UNSP DEMENTIA, UNSP SEVERITY, WITHOUT BEH/PSYCH/MO OD/ANX Active 07-19 00:00: 00 UNSPECIFIED MOOD [AFFECTIVE] DISORDER Active 07-19 00:00: 00 HYPOTHYROIDI SM, UNSPECIFIED Active 07-19 00:00: 00 HYPERLIPIDEM IA, UNSPECIFIED Active 07-19 00:00: 00 HISTORY OF FALLING Active 03-04 00:00: 00 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 Ordering Clinician Indication Dosage Frequency Signature (SIG) Comments Components aspirin 81 mg tablet,shari casillas release 03-05 00:00: 00 Yes [id number] SUPPLEMENT 1 tablet DAILY 1 tablet DAILY (route: oral) Med Classific ation: Hematolog ical Agents atorvastati n 20 mg tablet 03-05 00:00: 00 Yes [id number] CHOLESTEROL 1 tablet DAILY 1 tablet DAILY (route: oral) Med Classific ation: Cardiovas cular Therapy Agents buspirone 10 mg tablet 03-05 00:00: 00 Yes [id number] MOOD 1 tablet DAILY 1 tablet DAILY (route: oral) Med Classific ation: Central Nervous System Agents estradiol 1 mg tablet 03-05 00:00: 00 03-08 00:00 :00 No [id number] Per instruc tions Per instructio ns (route: oral) Med Classific ation: Endocrine fluticasone propionate 50 mcg/actuati on nasal spray,suspe nsion 03-05 00:00: 00 03-08 00:00 :00 No [id number] Per instruc tions Per instructio ns (route: nasal) Med Classific ation: Respirato ry Therapy Agents furosemide 20 mg tablet 03-05 00:00: 00 03-08 00:00 :00 No [id number] Per instruc tions Per instructio ns (route: oral) Med Classific ation: Cardiovas cular Therapy Agents levothyroxi ne 137 mcg tablet 03-05 00:00: 00 Yes [id number] THYROIN 1 tablet DAILY 1 tablet DAILY (route: oral) Med Classific ation: Endocrine lisinopril 20 mg tablet 03-05 00:00: 00 03-08 00:00 :00 No [id number] Per instruc tions Per instructio ns (route: oral) Med Classific ation: Cardiovas cular Therapy Agents metformin 500 mg tablet 03-05 00:00: 00 03-08 00:00 :00 No [id number] Per instruc tions Per instructio ns (route: oral) Med Classific ation: Endocrine mirtazapine 15 mg tablet 03-05 00:00: 00 Yes [id number] SLEEP 1 tablet DAILY 1 tablet DAILY (route: oral) Med Classific ation: Central Nervous System Agents ergocalcife rol (vitamin D2) 1,250 mcg (50,000 unit) capsule 03-05 00:00: 00 03-08 00:00 :00 No [id number] Per instruc tions Per instructio ns (route: oral) Med Classific ation: Electroly te Balance-N utritiona l Products Vraylar 1.5 mg capsule 02-07 00:00: 00 Yes [id number] MOOD 1 capsule DAILY 1 capsule DAILY (route: oral) Med Classific ation: Central Nervous System Agents atorvastati n 20 mg tablet 02-06 00:00: 00 03-08 00:00 :00 No [id number] Per instruc tions Per instructio ns (route: oral) Med Classific ation: Cardiovas cular Therapy Agents estradiol 1 mg tablet 02-06 00:00: 00 Yes [id number] HORMONES 1 tablet DAILY 1 tablet DAILY (route: oral) Med Classific ation: Endocrine furosemide 20 mg tablet 02-06 00:00: 00 Yes [id number] DIURETIC 1 tablet DAILY 1 tablet DAILY (route: oral) Med Classific ation: Cardiovas cular Therapy Agents lisinopril 20 mg tablet 02-06 00:00: 00 Yes [id number] HTN 1 tablet DAILY 1 tablet DAILY (route: oral) Med Classific ation: Cardiovas cular Therapy Agents Vitamin D2 1,250 mcg (50,000 unit) capsule 02-06 00:00: 00 Yes [id number] SUPPLEMENT 1 capsule DAILY 1 capsule DAILY (route: oral) Med Classific ation: Electroly te Balance-N utritiona l Products Vital Signs Vital Name Observation Time Observation Value Commen ts Temperature 2025-04-17 13:35:00.000 98.2 [degF] Temperature 2025-04-05 15:11:00.000 99.8 [degF] Temperature 2025-03-20 11:01:00.000 97.8 [degF] Temperature 2025-03-19 11:26:00.000 97.7 [degF] Temperature 2025-03-14 09:41:00.000 97.4 [degF] Temperature 2025-03-13 15:35:00.000 97.1 [degF] Temperature 2025-03-13 14:40:00.000 98.6 [degF] Temperature 2025-03-13 10:17:00.000 98 [degF] Temperature 2025-03-08 15:31:00.000 99.5 [degF] BMI (%) 2025-03-08 15:21:15.000 29 kg/m2 Height 2025-03-08 15:20:49.000 66 [in_us] Pulse 2025-05-03 13:24:00.000 90 /min Pulse 2025-04-23 14:13:00.000 70 /min Pulse 2025-04-19 11:10:00.000 78 /min Pulse 2025-04-17 13:35:00.000 82 /min Pulse 2025-04-13 12:31:00.000 78 /min Pulse 2025-04-05 15:11:00.000 80 /min Pulse 2025-03-29 12:52:00.000 78 /min Pulse 2025-03-20 11:01:00.000 83 /min Pulse 2025-03-19 11:26:00.000 80 /min Pulse 2025-03-14 09:41:00.000 76 /min Pulse 2025-03-13 15:35:00.000 71 /min Pulse 2025-03-13 14:40:00.000 70 /min Pulse 2025-03-13 10:17:00.000 74 /min Pulse 2025-03-08 15:31:00.000 83 /min O2 Saturation (%) 2025-05-03 13:24:00.000 98 % O2 Saturation (%) 2025-04-23 14:13:00.000 94 % O2 Saturation (%) 2025-04-19 11:10:00.000 99 % O2 Saturation (%) 2025-04-13 12:31:00.000 98 % O2 Saturation (%) 2025-03-29 12:52:00.000 95 % O2 Saturation (%) 2025-03-20 11:01:00.000 98 % O2 Saturation (%) 2025-03-14 09:41:00.000 93 % O2 Saturation (%) 2025-03-13 15:35:00.000 100 % O2 Saturation (%) 2025-03-13 10:17:00.000 96 % O2 Saturation (%) 2025-03-08 15:33:00.000 96 % Respirations 2025-05-03 13:24:00.000 18 /min Respirations 2025-04-23 14:13:00.000 17 /min Respirations 2025-04-19 11:10:00.000 18 /min Respirations 2025-04-17 13:35:00.000 18 /min Respirations 2025-04-13 12:31:00.000 18 /min Respirations 2025-04-05 15:11:00.000 18 /min Respirations 2025-03-29 12:52:00.000 17 /min Respirations 2025-03-20 11:01:00.000 18 /min Respirations 2025-03-19 11:26:00.000 18 /min Respirations 2025-03-14 09:41:00.000 18 /min Respirations 2025-03-13 15:35:00.000 18 /min Respirations 2025-03-13 14:40:00.000 18 /min Respirations 2025-03-13 10:17:00.000 17 /min Respirations 2025-03-08 15:31:00.000 18 /min Weight (lbs) 2025-03-08 15:21:15.000 180 [lb_av] Systolic Blood Pressure 2025-05-03 13:24:00.000 150 mm [Hg] Systolic Blood Pressure 2025-04-23 14:13:00.000 140 mm [Hg] Systolic Blood Pressure 2025-04-19 11:10:00.000 144 mm [Hg] Systolic Blood Pressure 2025-04-17 13:35:00.000 114 mm [Hg] Systolic Blood Pressure 2025-04-13 12:31:00.000 148 mm [Hg] Systolic Blood Pressure 2025-04-05 15:11:00.000 160 mm [Hg] Systolic Blood Pressure 2025-03-29 12:52:00.000 120 mm [Hg] Systolic Blood Pressure 2025-03-20 11:01:00.000 124 mm [Hg] Systolic Blood Pressure 2025-03-19 11:26:00.000 134 mm [Hg] Systolic Blood Pressure 2025-03-14 09:41:00.000 118 mm [Hg] Systolic Blood Pressure 2025-03-13 15:35:00.000 124 mm [Hg] Systolic Blood Pressure 2025-03-13 14:40:00.000 124 mm [Hg] Systolic Blood Pressure 2025-03-13 10:17:00.000 150 mm [Hg] Systolic Blood Pressure 2025-03-08 15:31:00.000 159 mm [Hg] Diastolic Blood Pressure 2025-05-03 13:24:00.000 94 mm [Hg] Diastolic Blood Pressure 2025-04-23 14:13:00.000 72 mm [Hg] Diastolic Blood Pressure 2025-04-19 11:10:00.000 88 mm [Hg] Diastolic Blood Pressure 2025-04-17 13:35:00.000 66 mm [Hg] Diastolic Blood Pressure 2025-04-13 12:31:00.000 79 mm [Hg] Diastolic Blood Pressure 2025-04-05 15:11:00.000 90 mm [Hg] Diastolic Blood Pressure 2025-03-29 12:52:00.000 60 mm [Hg] Diastolic Blood Pressure 2025-03-20 11:01:00.000 62 mm [Hg] Diastolic Blood Pressure 2025-03-19 11:26:00.000 87 mm [Hg] Diastolic Blood Pressure 2025-03-14 09:41:00.000 72 mm [Hg] Diastolic Blood Pressure 2025-03-13 15:35:00.000 64 mm [Hg] Diastolic Blood Pressure 2025-03-13 14:40:00.000 60 mm [Hg] Diastolic Blood Pressure 2025-03-13 10:17:00.000 80 mm [Hg] Diastolic Blood Pressure 2025-03-08 15:31:00.000 95 mm [Hg] Plan of Treatment Planned Activity Planned Date Details Comments Future Scheduled Test RN TO OBSE RVE, ASSESS, EVALUATE, AND DEVELOP AN INDIVIDUALIZED PLAN OF CARE. AGENCY MAY ACCEPT ORDERS FROM CONSULTING PHYSICIANS RN TO OBSERVE AND ASSESS, PROPOSAL COORDINATOR/TRANSITION MGR TO OBSERVE FOR RISK FOR FALLS AND INSTRUCT IN FALL PREVENTION, HOME SAFETY, MEDICATION MANAGEMENT, INFECTION PREVENTION, AND NUTRITION MANAGEMENT. RN/PROPOSAL COORDINATOR/TRANSITION MGR NURSE MAY PERFORM O2 SATURATION LEVEL ON ADMISSION AND PRN FOR RN TO ASSESS/PROPOSAL COORDINATOR TO OBSERVE PATIENT, WITH NOTIFICATION TO THE PHYSICIAN IF SATURATION IS 90% IN THE ABSENCE OF MORE SPECIFIC PARAMETERS FROM THE PHYSICIAN. AGENCY MAY PERFORM A RESUMPTION OF CARE VISIT FOLLOWING ANY HOSPITAL ADMISSION. RN/PROPOSAL COORDINATOR/TRANSITION MGR TO MONITOR CO-MORBID CONDITIONS LISTED ON THE PLAN OF CARE AND ANY NEW CONDITIONS THAT PRESENT THEMSELVES DURING THIS EPISODE TO IDENTIFY CHANGES AND INTERVENE TO MINIMIZE COMPLICATIONS. [code = RN TO OBSERVE, ASSESS, EVALUATE, AND DEVELOP AN INDIVIDUALIZED PLAN OF CARE. AGENCY MAY ACCEPT ORDERS FROM CONSULTING PHYSICIANS RN TO OBSERVE AND ASSESS, PROPOSAL COORDINATOR/TRANSITION MGR TO OBSERVE FOR RISK FOR FALLS AND INSTRUCT IN FALL PREVENTION, HOME SAFETY, MEDICATION MANAGEMENT, INFECTION PREVENTION, AND NUTRITION MANAGEMENT. RN/PROPOSAL COORDINATOR/TRANSITION MGR NURSE MAY PERFORM O2 SATURATION LEVEL ON ADMISSION AND PRN FOR RN TO ASSESS/PROPOSAL COORDINATOR TO OBSERVE PATIENT, WITH NOTIFICATION TO THE PHYSICIAN IF SATURATION IS 90% IN THE ABSENCE OF MORE SPECIFIC PARAMETERS FROM THE PHYSICIAN. AGENCY MAY PERFORM A RESUMPTION OF CARE VISIT FOLLOWING ANY HOSPITAL ADMISSION. RN/PROPOSAL COORDINATOR/TRANSITION MGR TO MONITOR CO-MORBID CONDITIONS LISTED ON THE PLAN OF CARE AND ANY NEW CONDITIONS THAT PRESENT THEMSELVES DURING THIS EPISODE TO IDENTIFY CHANGES AND INTERVENE TO MINIMIZE COMPLICATIONS.] Future Scheduled Test RISK FOR H OSPITALIZATION; RN TO ASSESS/TEACH, TRANSITION MGR/PROPOSAL COORDINATOR TO OBSERVE/TEACH PATIENT/CAREGIVER ON RISK FOR HOSPITALIZATION/EMERGENCY ROOM VISITS, TEACH SIGNS AND SYMPTOMS THAT PUT PATIENT AT RISK, WHEN TO NOTIFY NURSE/PHYSICIAN OF COMPLICATIONS/DECLINE, AND WHEN TO CALL 911. [code = RISK FOR HOSPITALIZATION; RN TO ASSESS/TEACH, TRANSITION MGR/PROPOSAL COORDINATOR TO OBSERVE/TEACH PATIENT/CAREGIVER ON RISK FOR HOSPITALIZATION/EMERGENCY ROOM VISITS, TEACH SIGNS AND SYMPTOMS THAT PUT PATIENT AT RISK, WHEN TO NOTIFY NURSE/PHYSICIAN OF COMPLICATIONS/DECLINE, AND WHEN TO CALL 911.] Future Scheduled Test CARDIOVASC ULAR SYSTEM; RN TO ASSESS/TEACH, PROPOSAL COORDINATOR/TRANSITION MGR TO OBSERVE/TEACH RELATED TO ALTERED CARDIOVASCULAR STATUS TO MINIMIZE COMPLICATIONS AND REDUCE HOSPITALIZATION. [code = CARDIOVASCULAR SYSTEM; RN TO ASSESS/TEACH, PROPOSAL COORDINATOR/TRANSITION MGR TO OBSERVE/TEACH RELATED TO ALTERED CARDIOVASCULAR STATUS TO MINIMIZE COMPLICATIONS AND REDUCE HOSPITALIZATION.] Future Scheduled Test HYPERTENSI ON MANAGEMENT; RN TO ASSESS AND TEACH, PROPOSAL COORDINATOR/TRANSITION MGR TO OBSERVE AND TEACH WARNING SIGNS AND SYMPTOMS TO AVOID HOSPITALIZATION. [code = HYPERTENSION MANAGEMENT; RN TO ASSESS AND TEACH, PROPOSAL COORDINATOR/TRANSITION MGR TO OBSERVE AND TEACH WARNING SIGNS AND SYMPTOMS TO AVOID HOSPITALIZATION.] Future Scheduled Test DIABETES M ANAGEMENT; RN TO ASSESS AND TEACH, TRANSITION MGR/PROPOSAL COORDINATOR TO OBSERVE AND TEACH INSTRUCTIONS OF DIABETIC CARE TO INCLUDE: DIET DIABETIC SKIN CARE, SIGNS AND SYMPTOMS OF HYPO/HYPERGLYCEMIA, PROPER ADMINISTRATION OF DIABETIC MEDICATION. RN/TRANSITION MGR/PROPOSAL COORDINATOR TO INSTRUCT ON DIABETIC FOOT CARE AND MONITOR FOR SKIN LESIONS ON LOWER EXTREMITIES. BLOOD GLUCOSE TESTING PER HGBA1C EVERY 3 MONTHS FREQ. RN TO ASSESS AND TEACH, TRANSITION MGR/PROPOSAL COORDINATOR TO OBSERVE AND TEACH PATIENT/CAREGIVER ABILITY TO PERFORM AND RECORD BLOOD GLUCOSE TESTING ORDERED AND TO REPORT ABNORMAL FINDINGS TO PHYSICIAN. RN/TRANSITION MGR/PROPOSAL COORDINATOR MAY PERFORM BLOOD GLUCOSE TEST RN/TRANSITION MGR/PROPOSAL COORDINATOR TO INSTRUCT PATIENT ON IMPORTANCE OF HGBA1C MONITORING, KIDNEY FUNCTION TEST, EYE AND FOOT EXAMS. [code = DIABETES MANAGEMENT; RN TO ASSESS AND TEACH, TRANSITION MGR/PROPOSAL COORDINATOR TO OBSERVE AND TEACH INSTRUCTIONS OF DIABETIC CARE TO INCLUDE: DIET DIABETIC SKIN CARE, SIGNS AND SYMPTOMS OF HYPO/HYPERGLYCEMIA, PROPER ADMINISTRATION OF DIABETIC MEDICATION. RN/TRANSITION MGR/PROPOSAL COORDINATOR TO INSTRUCT ON DIABETIC FOOT CARE AND MONITOR FOR SKIN LESIONS ON LOWER EXTREMITIES. BLOOD GLUCOSE TESTING PER HGBA1C EVERY 3 MONTHS FREQ. RN TO ASSESS AND TEACH, TRANSITION MGR/PROPOSAL COORDINATOR TO OBSERVE AND TEACH PATIENT/CAREGIVER ABILITY TO PERFORM AND RECORD BLOOD GLUCOSE TESTING ORDERED AND TO REPORT ABNORMAL FINDINGS TO PHYSICIAN. RN/TRANSITION MGR/PROPOSAL COORDINATOR MAY PERFORM BLOOD GLUCOSE TEST RN/TRANSITION MGR/PROPOSAL COORDINATOR TO INSTRUCT PATIENT ON IMPORTANCE OF HGBA1C MONITORING, KIDNEY FUNCTION TEST, EYE AND FOOT EXAMS.] Future Scheduled Test FALL REDUC TION MANAGEMENT; RN TO ASSESS AND OBSERVE, PROPOSAL COORDINATOR/TRANSITION MGR TO OBSERVE FALL RISK FACTORS AND EDUCATE PATIENT/CAREGIVER ON STRATEGIES TO MINIMIZE THE RISK OF FALLING. [code = FALL REDUCTION MANAGEMENT; RN TO ASSESS AND OBSERVE, PROPOSAL COORDINATOR/TRANSITION MGR TO OBSERVE FALL RISK FACTORS AND EDUCATE PATIENT/CAREGIVER ON STRATEGIES TO MINIMIZE THE RISK OF FALLING.] Future Scheduled Test PHYSICAL T HERAPIST TO EVALUATE FOR GAIT AND BALANCE [code = PHYSICAL THERAPIST TO EVALUATE FOR GAIT AND BALANCE] Future Scheduled Test OCCUPATION AL THERAPIST TO EVALUATE FOR SAFETY IN ADLS AND IADLS [code = OCCUPATIONAL THERAPIST TO EVALUATE FOR SAFETY IN ADLS AND IADLS] Future Scheduled Test SPEECH THE RAPIST TO EVALUATE FOR DEMENTIA [code = SPEECH THERAPIST TO EVALUATE FOR DEMENTIA] Future Scheduled Test MEDICAL SO CIAL SERVICES FOR EVALUATION TO ASSESS SOCIAL AND EMOTIONAL FACTORS RELATED TO THE PATIENT'S ILLNESS, NEED FOR CARE, RESPONSE TO TREATMENT AND ADJUSTMENT TO CARE. [code = MEDICAL CLAY STAIN MIXER FOR EVALUATION TO ASSESS SOCIAL AND EMOTIONAL FACTORS RELATED TO THE PATIENT'S ILLNESS, NEED FOR CARE, RESPONSE TO TREATMENT AND ADJUSTMENT TO CARE.] Future Scheduled Test MEDICAL SO CIAL SERVICES FOR COMMUNITY RESOURCE PLANNING. [code = MEDICAL CLAY STAIN MIXER FOR COMMUNITY RESOURCE PLANNING.] Future Scheduled Test AGENCY MAY PERFORM A RESUMPTION OF CARE VISIT FOLLOWING ANY HOSPITAL ADMISSION. OT TO EVALUATE, OBSERVE / ASSESS, AND MONITOR, PROBATION AND PAROLE OFFICER TO OBSERVE AND MONITOR, PROVIDE SKILLED THERAPEUTIC INTERVENTION, ACTIVITY, EDUCATION, AND TRAINING TO ADDRESS; IMPROVEMENT OF STRENGTH, BALANCE, ACTIVITY TOLERANCE, SELF-CARE PERFORMANCE, HOME SAFETY RECOMMENDATIONS, HOME EXERCISE PROGRAM INSTRUCTION BATHING/SHOWERING (OT/PARISH) DRESSING (OT/PROBATION AND PAROLE OFFICER) ACTIVITIES OF DAILY LIVING (OT/PARISH) BED TRANSFERS (OT/PARISH) TOILET TRANSFER (OT/PROBATION AND PAROLE OFFICER) BATH/SHOWER TRANSFER (OT/PARISH) THERAPEUTIC EXERCISE (OT/PROBATION AND PAROLE OFFICER) OT / PROBATION AND PAROLE OFFICER TO EDUCATE ON DIABETES SELF- MANAGEMENT OT / PROBATION AND PAROLE OFFICER TO IDENTIFY FALL RISK FACTORS; EDUCATE THE PATIENT/CAREGIVER ON WAYS TO REDUCE FALL RISK FACTORS AND ESTABLISH HOME EXERCISE PROGRAM TO MINIMIZE FALL RISK. MAY TEACH THE PATIENT FLOOR RECOVERY WHEN CLINICALLY APPROPRIATE. [code = AGENCY MAY PERFORM A RESUMPTION OF CARE VISIT FOLLOWING ANY HOSPITAL ADMISSION. OT TO EVALUATE, OBSERVE / ASSESS, AND MONITOR, PROBATION AND PAROLE OFFICER TO OBSERVE AND MONITOR, PROVIDE SKILLED THERAPEUTIC INTERVENTION, ACTIVITY, EDUCATION, AND TRAINING TO ADDRESS; IMPROVEMENT OF STRENGTH, BALANCE, ACTIVITY TOLERANCE, SELF-CARE PERFORMANCE, HOME SAFETY RECOMMENDATIONS, HOME EXERCISE PROGRAM INSTRUCTION BATHING/SHOWERING (OT/PROBATION AND PAROLE OFFICER) DRESSING (OT/PROBATION AND PAROLE OFFICER) ACTIVITIES OF DAILY LIVING (OT/PARISH) BED TRANSFERS (OT/PARISH) TOILET TRANSFER (OT/PROBATION AND PAROLE OFFICER) BATH/SHOWER TRANSFER (OT/PROBATION AND PAROLE OFFICER) THERAPEUTIC EXERCISE (OT/PARISH) OT / PARISH TO EDUCATE ON DIABETES SELF- MANAGEMENT OT / PROBATION AND PAROLE OFFICER TO IDENTIFY FALL RISK FACTORS; EDUCATE THE PATIENT/CAREGIVER ON WAYS TO REDUCE FALL RISK FACTORS AND ESTABLISH HOME EXERCISE PROGRAM TO MINIMIZE FALL RISK. MAY TEACH THE PATIENT FLOOR RECOVERY WHEN CLINICALLY APPROPRIATE.] Future Scheduled Test ST EVALUAT ION PERFORMED. NO ADDITIONAL VISITS REQUIRED. [code = ST EVALUATION PERFORMED. NO ADDITIONAL VISITS REQUIRED.] Future Scheduled Test PHYSICAL T HERAPY EVALUATION PERFORMED. NO ADDITIONAL VISITS REQUIRED. PROVIDED SKILLED INTERVENTION INCLUDING CUING ON FUNCTIONAL ACTIVITIES [code = PHYSICAL THERAPY EVALUATION PERFORMED. NO ADDITIONAL VISITS REQUIRED. PROVIDED SKILLED INTERVENTION INCLUDING CUING ON FUNCTIONAL ACTIVITIES] Goal Patient Goal - TO BE STRONGE R Goal Provider Goal - A PLAN OF CARE WILL BE ESTABLISHED THAT MEETS THE PATIENT S NEEDS. PATIENT WILL DEMONSTRATE OXYGEN SATURATION WITHIN NORMAL LIMITS OR PATIENT S OPTIMAL LEVEL ESTABLISHED BY THE PHYSICIAN THROUGHOUT CARE. CHANGES TO CO-MORBID CONDITIONS AND ANY NEW CONDITIONS WILL BE IDENTIFIED AND REPORTED TO THE PHYSICIAN. Goal Provider Goal - PATIENT/CAREGIVER WILL VERBALIZE UNDERSTANDING OF SIGNS AND SYMPTOMS THAT PUT THE PATIENT AT RISK FOR HOSPITALIZATION /EMERGENCY ROOM VISITS, WHEN TO NOTIFY NURSE/PHYSICIAN OF COMPLICATIONS/DECLINE AND WHEN TO CALL 911. Goal Provider Goal - PATIENT / CAREGIVER WILL VERBALIZE/DEMONSTRATE UNDERSTANDING OF MEASURES TO MANAGE ALTERED CARDIOVASCULAR STATUS BY 60 DAYS Goal Provider Goal - PATIENT / CAREGIVER WILL VERBALIZE/DEMONSTRATE AN ABILITY TO ADHERE TO SELF-MANAGEMENT OF HTN TO MINIMIZE COMPLICATIONS AND AVOID HOSPITALIZATION BY END OF EPISODE. Goal Provider Goal - PATIENT / CAREGIVER WILL VERBALIZE / DEMONSTRATE AN ABILITY TO ADHERE TO SELF-MANAGEMENT OF DIABETES MANAGEMENT BY 60 DAYS Goal Provider Goal - PATIENT/CAREGIVER WILL VERBALIZE/DEMONSTRATE UNDERSTANDING OF FALL RISK FACTORS AND IMPLEMENT STRATEGIES TO MINIMIZE FALL RISK. PATIENT/CAREGIVER WILL VERBALIZE/DEMONSTRATE AN ABILITY TO ADHERE TO FALL REDUCTION SELF-MANAGEMENT AND LIFE-STYLE CHANGES BY 60 DAYS Goal Provider Goal - Goal Provider Goal - Goal Provider Goal - Goal Provider Goal - Goal Provider Goal - PATIENT / CAREGIVER WILL DEMONSTRATE EFFECTIVE COMMUNITY RESOURCE PLANNING, EVIDENCED BY ACCEPTANCE OF ASSISTANCE FROM THOSE SERVICES FOR WHICH THEY ARE ELIGIBLE, EXTENDING THE PERIOD OF INDEPENDENCE IN THE HOME. Goal Provider Goal - OT STG: PATIENT WILL DEMONSTRATE IMPROVED ABILITY TO PERFORM TOTAL BODY BATHING TO REDUCE CAREGIVER BURDEN OF CARE FROM MAXIMAL ASSISTANCE TO MODERATE ASSISTANCE WITHIN 4 WEEKS OT LTG: PATIENT WILL DEMONSTRATE IMPROVED ABILITY TO PERFORM BATHING/SHOWERING AND REDUCE CAREGIVER BURDEN FROM MAXIMAL ASSISTANCE TO MINIMAL ASSISTANCE WITHIN 8 WEEKS OT STG: PATIENT WILL DEMONSTRATE IMPROVED ABILITY TO PERFORM LOWER BODY DRESSING FROM MAXIMAL ASSISTANCE TO MODERATE ASSISTANCE TO REDUCE CAREGIVER BURDEN OF CARE WITHIN 6 WEEKS OT LTG: PATIENT WILL DEMONSTRATE IMPROVED ABILITY TO PERFORM LOWER BODY DRESSING TO REDUCE CAREGIVER BURDEN FROM MAXIMAL ASSISTANCE TO MINIMAL ASSISTANCE WITHIN 8 WEEKS OT LTG: PATIENT WILL DEMONSTRATE IMPROVEMENT IN MODIFIED SANDRA INDEX SCORE FROM 59 TO 70 INDICATING DECREASED DEPENDENCY ON CAREGIVER ASSISTANCE WITH ACTIVITIES OF DAILY LIVING WITHIN 8 WEEKS OT STG: PATIENT WILL DEMONSTRATE IMPROVED ABILITY TO PERFORM BED TRANSFERS TO BEDSIDE COMMODE IN ORDER TO REDUCE RISK OF SKIN BREAKDOWN AND TO IMPROVE PARTICIPATION IN ADLS FROM MODERATE ASSISTANCE TO CONTACT GUARD ASSISTANCE WITHIN 6 WEEKS OT LTG: PATIENT WILL DEMONSTRATE IMPROVED ABILITY TO PERFORM BED TRANSFERS IN ORDER TO REDUCE RISK OF SKIN BREAKDOWN AND TO IMPROVE PARTICIPATION IN ADLS FROM MODERATE ASSISTANCE TO INDEPENDENCE WITHIN 8 WEEKS OT STG: PATIENT WILL DEMONSTRATE IMPROVED ABILITY TO PERFORM TOILET TRANSFERS TO REDUCE FALL RISK AND RISK OF INCONTINENCE AND UTI DEVELOPMENT FROM MINIMAL ASSISTANCE TO STAND BY ASSISTANCE WITHIN 4 WEEKS OT LTG: PATIENT WILL DEMONSTRATE IMPROVED ABILITY TO PERFORM TOILET TRANSFERS TO REDUCE FALL RISK AND RISK OF INCONTINENCE AND UTI DEVELOPMENT FROM MINIMAL ASSISTANCE TO INDEPENDENCE WITHIN 6 WEEKS OT STG: PATIENT WILL DEMONSTRATE IMPROVED ABILITY AND SAFETY TO PERFORM TUB TRANSFER FROM MAXIMAL ASSISTANCE TO MINIMAL ASSISTANCE WITHIN 6 WEEKS OT LTG: PATIENT WILL DEMONSTRATE IMPROVED ABILITY AND SAFETY TO PERFORM BATH/SHOWER TRANSFER FROM MAXIMAL ASSISTANCE TO CONTACT GUARD ASSISTANCE WITHIN 8 WEEKS OT STG: CAREGIVER WILL DEMONSTRATE ABILITY TO PERFORM PATIENTS BILATERAL UPPER EXTREMITY STRENGTHENING HOME EXERCISE PROGRAM FROM UNABLE TO INDEPENDENT WITHIN 4 WEEKS OT LTG: PATIENT WILL DEMONSTRATE IMPROVED BILATERAL UPPER EXTREMITY STRENGTH FROM 3 + 5 TO 4/5 TO IMPROVE FUNCTIONAL TRANSFERS WITHIN 6 WEEKS OT GOAL: PATIENT/CAREGIVER WILL BE ABLE TO IDENTIFY SIGNS OF HYPER- AND HYPOGLYCEMIA AND VERBALIZE HOW TO MANAGE SYMPTOMS. OT LTG: PATIENT/CAREGIVER WILL BE ABLE TO IMPLEMENT RECOMMENDATIONS SPECIFIC TO FALL REDUCTION FOR IMPROVED ADL/IADL COMPLETION AND HOME SAFETY BY END OF EPISODE. Goal Provider Goal - PATIENT / CAREGIVER WITHIN 1 VISIT WILL BE ABLE TO VERBALIZE / DEMONSTRATE UNDERSTANDING OF MEMORY STRATEGIES Goal Provider Goal - PATIENT / CAREGIVER WITHIN 1 VISIT WILL BE ABLE TO VERBALIZE / DEMONSTRATE UNDERSTANDING OF SAFETY OF FUNCTIONAL ACTIVITIES Encounters Start Date/Time End Date/Time Encounter Type Admission Type Attending [facility] Care Facility Care Department Encounter ID Discharge Date Discharge Status Discharge Condition Discharge Reason Percent Goals Met 2025-03-08 00:00:00 2025-05-06 00:00:00 Outpatient NEW ADMISSION GRAHAM PINEDA [facility] [id number]
[2025-05-08] VITALS (12 sets, daily range): BP systolic 181–235; BP diastolic 95–155; PULSE 76–89; RESP 12–17; TEMP 36.6–36.7; O2SAT 93–99; BMI 36.3
--- NOTE | 2025-05-08 13:02 | PC.NURSE ---
pt ambulatory to restroom with assistance
--- NOTE | 2025-05-08 13:06 | XR_ITS ---
FINAL REPORT CLINICAL HISTORY: Left shoulder pain no injury FINDINGS: Three views show no evidence of acute displaced fracture or dislocation of the visualized bony architecture. There are mild degenerative changes. The bones are osteopenic. IMPRESSION: Mild degenerative changes. Reviewed, Interpreted and Dictated by Leonila Mahajan MD Transcribed by Belen Perdomo Authenticated and [facility]
--- NOTE | 2025-05-08 13:06 | XR_ITS ---
FINAL REPORT CLINICAL HISTORY: Left shoulder pain FINDINGS: No acute pulmonary opacity is present. There is no evidence of effusion or pneumothorax. Mediastinum is unremarkable. Heart size is normal. IMPRESSION: No acute abnormality. Reviewed, Interpreted and Dictated by Leonila Mahajan MD Transcribed by Belen Perdomo Authenticated and [facility]
--- NOTE | 2025-05-08 13:07 | XR_ITS ---
FINAL REPORT CLINICAL HISTORY: Left arm/shoulder pain FINDINGS: Three views show no evidence of an acute, displaced fracture or dislocation of the visualized bony architecture. The joint spaces appear normal. IMPRESSION: Unremarkable exam. Reviewed, Interpreted and Dictated by Leonila Mahajan MD Transcribed by Belen Perdomo Authenticated and [facility]
--- NOTE | 2025-05-08 13:09 | ED_ITS ---
<Statement entered by Adalberto Tolbert MD - 05/08/25 18:26> I was consulted by the DAWSON, and we discussed the complexity of the problems being addressed. I approve the treatment and management plan for this patient's care in the emergency department, thus performing a substantive portion of the medical decision making. Adalberto Tolbert MD Discharge Plan Disposition Patient Disposition: Left Against Medical Advice Condition: Fair Prescriptions Prescriptions: No Action atorvastatin 20 mg tablet 20 mg PO DAILY 90 Days Patient Comments: levothyroxine 137 mcg tablet 137 mcg PO DAILY 90 Days Patient Comments: aspirin 81 MG tablet,delayed release (DR/EC) 81 mg PO DAILY lisinopril 20 mg tablet 20 mg PO DAILY buspirone 10 mg tablet 10 mg PO BID furosemide 20 mg tablet 20 mg PO BID mirtazapine 15 mg tablet 15 mg PO DAILY ergocalciferol (vitamin D2) [Vitamin D2] 1,250 mcg (50,000 unit) capsule 1,250 mcg PO WEEKLY fluticasone propionate 50 mcg/actuation spray,suspension 1 spray INTRANASAL DAILY Vraylar 1.5 mg capsule 1.5 mg PO DAILY estradiol 1 mg tablet 1 mg PO DAILY metformin 500 mg tablet 500 mg PO BIDWMEAL Qty: 60 0RF Referrals Follow up/Referrals: Provider,Referral, [Referring, Medical] - See instructions Clinical Impressions Clinical Impression: Generalized weakness, Localized swelling of both lower legs, Aneurysm of thoracic aorta Print Language Print Language: British Discharge ED Provider: Adalberto Tolbert General Adult HPI <TESSY Newsome - Last Filed: 05/08/25 17:26> General Chief complaint: PAIN Stated complaint: pain Time Seen by Provider: 05/08/25 12:59 Mode of Arrival: EMS Source of Information: Patient and EMS Limitations: No Limitations Description of Symptoms (Recalled from ER Triage Doc. by RN): pt reports she is here for leg and arm pain. her daughter called the ambulance. pt denies any serious pain @ this time. pt is confused and weak unable to care for herself. History of Present Illness HPI narrative: 79-year-old female presents to the emergency department via EMS, for bilateral arm pain, right worse than left for the last 2 days, no trauma or injury per history, patient is pleasantly confused unsure of baseline, GCS 14-15 some difficulty with time, however, oriented to person and place, patient denies any fever chills cough congestion sore throat, denies any chest pain shortness of breath, denies any nausea vomiting constipation diarrhea no abdominal pain, no urinary symptomatology, patient denies any alcohol tobacco or drug use, patient denies any radicular type symptomatology, denies any numbness or tingling, denies any neck pain. Other past medical history consistent with HFpEF, dementia, hypothyroidism, T2DM, hypertension. Initial triage vitals notable for hypertensive state at 214/113, otherwise unremarkable. When asking patient she took her antihypertensive medication this morning she states yes, there is no family available at the bedside at the time of my examination. Please note that above description of symptoms, in this electronic medical record under categorization of recalled from ER triage doctor by RN are reflective of an initial nursing assessment, however, is not reflective of my full history and physical exam that was personally taken and clarified. Consequentially, this preceding description of symptoms, which may include the patient's categorized chief complaint in the EMR, do not reflect my personal clinical impression, and the ultimate description of history of present illness and patient stated complaints should be deferred to this section of the note. Unless stated otherwise or congruent with this section of the note, additional signs, symptoms, or incongruence should be interpreted as inaccurate with my clinical impression. Onset (ago): day(s) Related Data Home Medications ?Medication ?Instructions ?Recorded ?Confirmed atorvastatin 20 mg tablet 20 mg PO DAILY 90 days 08/1303/04/25 levothyroxine 137 mcg tablet 137 mcg PO DAILY 90 days 08/13/17 03/04/25 aspirin 81 mg tablet,delayed 81 mg PO DAILY Heart dise ase 12/28/19 03/04/25 release buspirone 10 mg tablet 10 mg PO BID 09/13/22 lisinopril 20 mg tablet 20 mg PO DAILY 09/13/2202/16 cariprazine 1.5 mg capsule 1.5 mg PO DAILY 03/04/25 (Vraylar) ergocalciferol (vitamin D2) 1,250 1,250 mcg PO WEEKLY 03/04/25 03/05/25 mcg (50,000 unit) capsule (Vitamin D2) fluticasone propionate 50 1 spray intranasal DAILY 08/ 17/25 08/17/25 mcg/actuation nasal spray,suspension furosemide 20 mg tablet 20 mg PO BID 03/04/25 mirtazapine 15 mg tablet 15 mg PO DAILY 03/04/2502/16 estradiol 1 mg tablet 1 mg PO DAILY 03/05/2503/05 Previous Rx's ?Medication ?Instructions ?Recorded metformin 500 mg tablet 500 mg PO BIDWMEAL #60 tabs 03/05/25 Allergies Allergy/AdvReac Type Severity Reaction Status Date / Time No Known Allergies Allergy Verified 04/10/19 13:32 [facility] <TESSY Newsome - Last Filed: 05/08/25 17:26> [facility] Disclaimer: The information contained in this section may have been updated after the patient was seen, as this information can be updated by other users. Medical History (Updated 05/08/25 @ 17:26 by TESSY Newsome) Non-STEMI (non-ST elevated myocardial infarction) Syncope and collapse Labyrinthine dysfunction of right ear Contusion of face Nasal bone fracture Elevated troponin Lung nodules Tinnitus Nasal abrasion Contusion of nose Epistaxis Epistaxis, recurrent Auditory hallucinations Atypical chest pain Skin tear Left against medical advice Falling episodes Diabetes mellitus Normal hysteroscopy HLD (hyperlipidemia) Hypothyroidism Dementia HTN (hypertension) Surgical History H/O tubal ligation Hx of appendectomy Family History (Updated 03/04/25 @ 18:52 by Bibi Jesus RN) Other No significant family history Social History (Updated 03/04/25 @ 18:52 by Bibi Jesus RN) Smoking Status: Never smoker alcohol intake: never substance use type: denies use current occupational status: retired Travel in the last 8 weeks?: None housing: house Have you lived/traveled outside US in past 30 days?: No Contact w/someone who lives/traveled outside US past 30 days?: No Exposure to someone with infectious disease in past 14 days?: No Do you have a fever (greater than 100.4 F or 38 C)?: No Have you tested positive for COVID-19?: No Exposed to someone with COVID-19 in past 14 days?: No Do you have a sore throat?: No Do you have a cough?: No Do you have any weakness?: No Do you have any diarrhea?: No Are you experiencing any unusual bleeding?: No Do you have any muscle aches/pain?: No Do you have any abdominal pain?: No Are you experiencing loss of taste or smell?: No Other Medical History Have you received the Flu Vaccine for this season: No Have you received the Pneumonia Vaccine: No <TESSY Newsome - Last Filed: 05/08/25 17:26> ROS Obtained: Yes All systems reviewed & no additional complaints except as documented Physical Exam <TESSY Newsome - Last Filed: 05/08/25 17:26> General General appearance: alert and in no apparent distress Head Head exam: atraumatic and normocephalic Eye Eye exam: Present PERRL and EOMI ENT ENT exam: Present mucous membranes moist Neck Neck exam: Present normal inspection Chest Chest inspection: Present normal inspection and symmetric chest wall rise Respiratory Respiratory exam: Present normal lung sounds bilaterally; Absent respiratory distress, wheezes or stridor Cardiovascular Cardiovascular exam: Present regular rate and normal rhythm Abdominal Exam Abdominal exam: Present soft; Absent tenderness, guarding, rebound or rigidity Extremities Exam Extremities exam: Present normal inspection, tenderness and other (There is pain to palpation over the bilateral shoulders, difficulty with range of motion, otherwise neurovascularly intact, no pain to palpation distally.); Absent full ROM, edema or joint swelling Back Exam Back exam: Present full ROM; Absent tenderness Neurological Exam Neurological exam: Present alert and other (GCS 14, confusion about date and time, oriented to person and place unsure of baseline); Absent oriented X3 Psychiatric Psychiatric exam: Present normal affect Skin Skin exam: Present warm, dry and other (Bilateral lower extremity edema, nonpitting, chronic venous atrophic skin changes to the bilateral lower extremities) Medical Decision Making <TESSY Newsome - Last Filed: 05/08/25 17:26> Medical Records Medical records reviewed: Yes I reviewed the patient's medical records. Screening: Per USPSTF and CDC recommendations, given the prevalence of disease in our region, it is our hospital?s policy to screen for HIV and viral Hepatitis for all patients aged 18 and over and those with ongoing risk factors. Gustavo Inquiry Pt receiving controlled substance: No Gustavo was queried for this patient: No Vital Signs: 05/08/25 12:46 05/08/25 13:01 05/08/25 13:06 Temperature 98 F Temperature Source Oral Pulse Rate 82 76 Pulse Rate [Right] 77 Respiratory Rate 16 Blood Pressure 235/155 H 233/136 H Blood Pressure [Right Arm] 214/113 H Blood Pressure Mean 168 Blood Pressure Mean [Right Arm] 146 02 Sat by Pulse Oximetry 96 93 L 96 Oxygen Delivery Method Room Air 05/08/25 13:48 05/08/25 14:06 05/08/25 14:10 Temperature Temperature Source Pulse Rate 89 84 Pulse Rate [Right] Respiratory Rate 13 17 13 Blood Pressure 181/95 H 215/112 H 203/109 H Blood Pressure [Right Arm] Blood Pressure Mean Blood Pressure Mean [Right Arm] 02 Sat by Pulse Oximetry 96 98 Oxygen Delivery Method Room Air Room Air 05/08/25 14:11 05/08/25 14:20 05/08/25 14:50 Temperature Temperature Source Pulse Rate 80 85 78 Pulse Rate [Right] Respiratory Rate 17 12 12 Blood Pressure 193/107 H 204/134 H 189/103 H Blood Pressure [Right Arm] Blood Pressure Mean Blood Pressure Mean [Right Arm] 02 Sat by Pulse Oximetry 97 98 95 Oxygen Delivery Method Room Air Room Air 05/08/25 15:00 05/08/25 15:10 05/08/25 15:43 Temperature 98.0 F Temperature Source Pulse Rate 84 86 86 Pulse Rate [Right] Respiratory Rate 12 15 16 Blood Pressure 200/99 H 210/121 H 210/121 H Blood Pressure [Right Arm] Blood Pressure Mean Blood Pressure Mean [Right Arm] 02 Sat by Pulse Oximetry 96 95 Oxygen Delivery Method Lab Data Lab results reviewed: Yes I reviewed the patient's lab results. Lab Results 05/08/25 12:42: WBC 6.4, RBC 4.42, Hgb 12.7, Hct 38.8, MCV 87.8, MCH 28.7, MCHC 32.7, RDW 13.7, Plt Count 333, MPV 10.6 H, Neut % (Auto) 65.2, Lymph % (Auto) 21.2, Titus % (Auto) 10.2 H, Eos % (Auto) 2.2, Baso % (Auto) 0.9, Neut # (Auto) 4.1, Lymph # (Auto) 1.4, Titus # (Auto) 0.7, Eos # (Auto) 0.1, Baso # (Auto) 0.1, PT 10.7, INR 0.96, D-Dimer 5.15 H, Sodium 137, Potassium 3.3 L, Chloride 96 L, C arbon Dioxide 32 H, Anion Gap 12.3, BUN 13, Creatinine 0.70, Estimated Creat Clear 76, Estimated GFR 81, Est GFR ( Amer) 98, Glucose 176 H, Calcium 8.8, Magnesium 1.7, Total Bilirubin 0.5, AST 51 H, ALT 24, Alkaline Phosphatase 147 H, Troponin I < 0.01, NT-Pro-B Natriuret Pep 240, Total Protein 7.6, Albumin 3.5, Globulin 4.1 H, Albumin/Globulin Ratio 0.9 L, Lipase 81 05/08/25 12:42 05/08/25 12:42 Orders (Tests/Meds): ED MEDICATIONS Discontinued Medications Generic Name Dose Route Start Last Admin Trade Name Freq PRN Reason Stop Dose Admin Hydralazine HCl 10 mg 05/08/25 13:24 05/08/25 13:44 Hydralazine 20mg/Ml Vial IV 05/08/25 13:25 10 mg ONCE ONE Administration Iopamidol 70 ml 05/08/25 14:37 05/08/25 14:39 Iopamidol-370 (76%);100ml Bottle IV 05/08/25 14:38 70 ml ONCE ONE Administration Morphine Sulfate 2 mg 05/08/25 13:30 05/08/25 13:43 Morphine 4mg/Ml Syringe IV 05/08/25 13:31 2 mg ONCE ONE Administration Ondansetron HCl 4 mg 05/08/25 13:10 05/08/25 13:44 Ondansetron 4mg/2ml Vial IV 05/08/25 13:11 4 mg ONCE ONE Administration Potassium Chloride 40 meq 05/08/25 13:41 05/08/25 14:59 Potassium Chloride 20meq Tab PO 05/08/25 13:42 40 meq ONCE ONE Administration Sodium Chloride 50 ml 05/08/25 14:37 05/08/25 14:39 0.9 % Sodium Chloride 50 Ml Vial IV 05/08/25 14:38 50 ml ONCE ONE Administration Sodium Chloride 10 ml 05/08/25 14:37 05/08/25 14:39 Sodium Chloride 0.9% 10ml Syr (Rad Only) IV 05/08/25 14:38 10 ml ONCE ONE Administration ORDERS Category Date Time Status CT angio chest PE protocol Stat Cat Scan 05/08/25 14:[address] head/brain wo con Stat Cat Scan 05/08/25 13:24 Completed XR chest portable Stat Exams 05/08/25 13:06 Completed XR humerus LT Stat Exams 05/08/25 13:07 Completed XR humerus RT Stat Exams 05/08/25 13:16 Completed XR shoulder LT min 2V Stat Exams 05/08/25 13:06 Completed XR shoulder RT min 2V Stat Exams 05/08/25 13:16 Completed Complete Blood Count Auto Diff Stat Lab 05/08/25 12:42 Completed Comprehensive Metabolic Panel Stat Lab 05/08/25 12:42 Completed D-Dimer Stat Lab 05/08/25 12:42 Completed Lipase Stat Lab 05/08/25 12:42 Completed Magnesium Stat Lab 05/08/25 12:42 Completed NT Pro Brain Natriuretic Pep. Stat Lab 05/08/25 12:42 Completed PT INR [Prothrombin Time INR] Stat Lab 05/08/25 12:42 Completed Troponin I Stat Lab 05/08/25 12:42 Completed CA venous doppler LE BI Stat Y 05/08/25 14:16 Completed Medical Decision Narrative: 79-year-old female presents the emergency department with bilateral shoulder pain right worse than left for the last 2 days, differential diagnose include but not limited to, ACS, cardiac arrhythmia, lecture disturbance, osteoarthritis of shoulders, acute shoulder impingement syndrome, humeral head fracture, other musculoskeletal sprain/strain, PE among others. I discussed this patient's case with the attending physician Dr. Kovacs Will obtain basic laboratory studies, chest x-ray, bilateral shoulder and humerus x-rays, D-dimer lipase magnesium level proBNP PT/INR, troponin, urinalysis, obtain CT head without contrast, will give 2 mg IV morphine and 4 mg of Zofran for pain and nausea. For the patient's hypertension will give 10 mg IV hydralazine. Of note, I was able to discuss this patient's case with the daughter who is now at the bedside at approximately 1:30 PM, patient's daughter states that this morning she would not raise her shoulders , because of pain . She then proceeds to tell me of ongoing generalized weakness difficulty ambulating, for the last several months, patient's daughter states that she has arthritis all over , and is difficult for her to ambulate without assistance. Patient does live alone. Patient's daughter then proceeds to tell me I was hoping you all could admit her and do something with her because I cannot take care of her or lift her . CBC is unremarkable Coags within normal limits CMP is noted for mild hypokalemia at 3.3, will replace with 40 milliequivalent p.o. potassium AST is minimally elevated 51, proBNP is 240 D-dimer is 5.15, thus will obtain CTA chest with and without contrast PE protoco, as well as a left lower extremity duplex ultrasound. Initial troponin is less than 0.01. Patient was seen in the emergency department on 04/26/2025, for bilateral lower extremity swelling left worse than right, with diagnosis of venous stasis dermatitis and ultimately decided to leave AGAINST MEDICAL ADVICE. Patient does have some left lower extremity pain, as well as right lower extremity swelling, will obtain bilateral lower extremity duplex ultrasound to rule out DVT in the setting of elevated D-dimer and left lower extremity pain and bilateral lower extremity swelling. I reviewed the patient's bilateral humerus x-rays along with the corresponding radiologic report, unremarkable exams. I reviewed the patient's bilateral shoulder x-rays along the corresponding radiologic report mild degenerative changes. I reviewed the patient's chest x-ray along the corresponding radiologic report, there is no acute abnormality. I reviewed patient's CT head without contrast on the corresponding radiologic report, no acute intracranial abnormality or obvious mass, atrophy and chronic ischemic white matter changes as above. Of note, nursing staff was able to help the patient ambulate assisted in unassisted to the restroom. Of note, patient would like to leave AGAINST MEDICAL ADVICE, I discussed with patient and family ember at the bedside daughter Allie Sheriff, patient and family member would not like to wait for their CTA and duplex results, discussed that patient could have blood clots in her lungs and legs, patient and family were in agreement with this, did not want a wait any longer, all risk against leaving medical advice were discussed with patient family the bedside, patient's daughter who is GCS of 15 and POA voiced understanding as well as patient. Strict ED return precautions given. Patient follow-up PCP in the upcoming days/weeks. Of note I called the patient at approximately 5:20 PM, no answer I called the patient's next of kin (daughter) as described above, discussed the results of the CTA showing a fusiform aneurysm, recommend follow-up for this, discussed results of bilateral ultrasounds showing no DVT. Patient's daughter voiced understanding and agreement with current plan for follow-up of incidental findings. <Adalberto Tolbert MD - Last Filed: 05/08/25 13:45> Vital Signs: 05/08/25 12:46 05/08/25 13:01 05/08/25 13:06 Temperature 98 F Temperature Source Oral Pulse Rate 82 76 Pulse Rate [Right] 77 Respiratory Rate 16 Blood Pressure 235/155 H 233/136 H Blood Pressure [Right Arm] 214/113 H Blood Pressure Mean 168 Blood Pressure Mean [Right Arm] 146 02 Sat by Pulse Oximetry 96 93 L 96 Oxygen Delivery Method Room Air 05/08/25 13:48 05/08/25 14:06 05/08/25 14:10 Temperature Temperature Source Pulse Rate 89 84 Pulse Rate [Right] Respiratory Rate 13 17 13 Blood Pressure 181/95 H 215/112 H 203/109 H Blood Pressure [Right Arm] Blood Pressure Mean Blood Pressure Mean [Right Arm] 02 Sat by Pulse Oximetry 96 98 Oxygen Delivery Method Room Air Room Air 05/08/25 14:11 05/08/25 14:20 05/08/25 14:50 Temperature Temperature Source Pulse Rate 80 85 78 Pulse Rate [Right] Respiratory Rate 17 12 12 Blood Pressure 193/107 H 204/134 H 189/103 H Blood Pressure [Right Arm] Blood Pressure Mean Blood Pressure Mean [Right Arm] 02 Sat by Pulse Oximetry 97 98 95 Oxygen Delivery Method Room Air Room Air 05/08/25 15:00 05/08/25 15:10 05/08/25 15:43 Temperature 98.0 F Temperature Source Pulse Rate 84 86 86 Pulse Rate [Right] Respiratory Rate 12 15 16 Blood Pressure 200/99 H 210/121 H 210/121 H Blood Pressure [Right Arm] Blood Pressure Mean Blood Pressure Mean [Right Arm] 02 Sat by Pulse Oximetry 96 95 Oxygen Delivery Method Lab Data Lab Results 05/08/25 12:42: WBC 6.4, RBC 4.42, Hgb 12.7, Hct 38.8, MCV 87.8, MCH 28.7, MCHC 32.7, RDW 13.7, Plt Count 333, MPV 10.6 H, Neut % (Auto) 65.2, Lymph % (Auto) 21.2, Titus % (Auto) 10.2 H, Eos % (Auto) 2.2, Baso % (Auto) 0.9, Neut # (Auto) 4.1, Lymph # (Auto) 1.4, Titus # (Auto) 0.7, Eos # (Auto) 0.1, Baso # (Auto) 0.1, PT 10.7, INR 0.96, D-Dimer 5.15 H, Sodium 137, Potassium 3.3 L, Chloride 96 L, C arbon Dioxide 32 H, Anion Gap 12.3, BUN 13, Creatinine 0.70, Estimated Creat Clear 76, Estimated GFR 81, Est GFR ( Amer) 98, Glucose 176 H, Calcium 8.8, Magnesium 1.7, Total Bilirubin 0.5, AST 51 H, ALT 24, Alkaline Phosphatase 147 H, Troponin I < 0.01, NT-Pro-B Natriuret Pep 240, Total Protein 7.6, Albumin 3.5, Globulin 4.1 H, Albumin/Globulin Ratio 0.9 L, Lipase 81 Orders (Tests/Meds): ED MEDICATIONS Discontinued Medications Generic Name Dose Route Start Last Admin Trade Name Freq PRN Reason Stop Dose Admin Hydralazine HCl 10 mg 05/08/25 13:24 05/08/25 13:44 Hydralazine 20mg/Ml Vial IV 05/08/25 13:25 10 mg ONCE ONE Administration Iopamidol 70 ml 05/08/25 14:37 05/08/25 14:39 Iopamidol-370 (76%);100ml Bottle IV 05/08/25 14:38 70 ml ONCE ONE Administration Morphine Sulfate 2 mg 05/08/25 13:30 05/08/25 13:43 Morphine 4mg/Ml Syringe IV 05/08/25 13:31 2 mg ONCE ONE Administration Ondansetron HCl 4 mg 05/08/25 13:10 05/08/25 13:44 Ondansetron 4mg/2ml Vial IV 05/08/25 13:11 4 mg ONCE ONE Administration Potassium Chloride 40 meq 05/08/25 13:41 05/08/25 14:59 Potassium Chloride 20meq Tab PO 05/08/25 13:42 40 meq ONCE ONE Administration Sodium Chloride 50 ml 05/08/25 14:37 05/08/25 14:39 0.9 % Sodium Chloride 50 Ml Vial IV 05/08/25 14:38 50 ml ONCE ONE Administration Sodium Chloride 10 ml 05/08/25 14:37 05/08/25 14:39 Sodium Chloride 0.9% 10ml Syr (Rad Only) IV 05/08/25 14:38 10 ml ONCE ONE Administration ORDERS Category Date Time Status CT angio chest PE protocol Stat Cat Scan 05/08/25 14:[address] head/brain wo con Stat Cat Scan 05/08/25 13:24 Completed XR chest portable Stat Exams 05/08/25 13:06 Completed XR humerus LT Stat Exams 05/08/25 13:07 Completed XR humerus RT Stat Exams 05/08/25 13:16 Completed XR shoulder LT min 2V Stat Exams 05/08/25 13:06 Completed XR shoulder RT min 2V Stat Exams 05/08/25 13:16 Completed Complete Blood Count Auto Diff Stat Lab 05/08/25 12:42 Completed Comprehensive Metabolic Panel Stat Lab 05/08/25 12:42 Completed D-Dimer Stat Lab 05/08/25 12:42 Completed Lipase Stat Lab 05/08/25 12:42 Completed Magnesium Stat Lab 05/08/25 12:42 Completed NT Pro Brain Natriuretic Pep. Stat Lab 05/08/25 12:42 Completed PT INR [Prothrombin Time INR] Stat Lab 05/08/25 12:42 Completed Troponin I Stat Lab 05/08/25 12:42 Completed CA venous doppler LE BI Stat Y 05/08/25 14:16 Completed ECG Data Tracing #1: I reviewed this ECG and interpreted as documented below: Normal sinus rhythm with first-degree AV block. No ST elevation or depression. QTc mildly elevated at 484 Critical Care <TESSY Newsome - Last Filed: 05/08/25 17:26> Critical Care Time Critical Care Time: No
--- NOTE | 2025-05-08 13:16 | XR_ITS ---
FINAL REPORT CLINICAL HISTORY: Right shoulder pain FINDINGS: Three views show no evidence of acute displaced fracture or dislocation of the visualized bony architecture. There are mild degenerative changes. IMPRESSION: Mild degenerative changes. Reviewed, Interpreted and Dictated by Leonila Mahajan MD Transcribed by Belen Perdomo Authenticated and [facility]
--- NOTE | 2025-05-08 13:16 | XR_ITS ---
FINAL REPORT CLINICAL HISTORY: Right shoulder pain FINDINGS: Two views show no evidence of an acute, displaced fracture or dislocation of the visualized bony architecture. The joint spaces appear normal. IMPRESSION: Unremarkable exam. Reviewed, Interpreted and Dictated by Leonila Mahajan MD Transcribed by Belen Perdomo Authenticated and [facility]
[2025-05-08 13:19] LABS: Hematocrit 38.8 % (37.0-47.0); Hemoglobin 12.7 g/dL (12.2-16.2); Immature Granulocytes % 0.3 %; Mean Corpuscular HGB Conc 32.7 g/dL (31.8-35.4); Mean Corpuscular Hemoglobin 28.7 pg (27.0-31.2); Mean Corpuscular Volume 87.8 fl (81-99); Nucleated Red Blood Cells % 0 %; Platelet Count 333 K/mm3 (142-424); Red Blood Count 4.42 M/mm3 (4.20-5.40); Red Cell Distribution Width-SD 44.0 fL; White Blood Count 6.4 K/mm3 (4.8-10.8)
--- NOTE | 2025-05-08 13:23 | ECG_ITS ---
APPROVED REPORT Exam: Resting ECG HR:72 bpm ECG Measurements Heart Rate 72 AXES SC 218 P 57 QRSd 117 QRS -4 QT 460 T 73 QTc 484 Conclusion SINUS RHYTHM WITH FIRST DEGREE AV BLOCK MODERATE INTRAVENTRICULAR CONDUCTION DELAY [110+ ms QRS DURATION] NONSPECIFIC T-WAVE ABNORMALITY PROLONGED QT INTERVAL ABNORMAL ECG UNCONFIRMED REPORT Electronically signed by : YULISA PEREZ, 05/10/2025 06:48:31
--- NOTE | 2025-05-08 13:24 | CT_ITS ---
FINAL REPORT TECHNIQUE: Noncontrast exam. This study was performed with techniques to keep radiation doses as low as reasonably achievable, (ALARA). Individualized dose reduction techniques using automated exposure control or adjustment of mA and/or kV according to the patient's size were employed. This study was performed with techniques to keep radiation doses as low as reasonably achievable, (ALARA). Individualized dose reduction techniques using automated exposure control or adjustment of mA and/or kV according to the patient''s size were employed. CLINICAL HISTORY: Generalized weakness/encephalopathy COMPARISON: 09/13/2022 FINDINGS: Moderate atrophy and advanced chronic microvascular changes. There are dense calcified plaque changes of the bilateral distal vertebral arteries, similar to prior exam. No cortical edema is present. There is no mass or hemorrhage. Ventricles are normal. Bone windows show no skull fracture or obvious obstructive lesion. IMPRESSION: 1. No acute intracranial abnormality or obvious mass. 2. Atrophy and chronic ischemic white matter changes as above. Reviewed, Interpreted and Dictated by Leonila Mahajan MD Transcribed by Belen Perdomo Authenticated and . [facility]
[2025-05-08 13:28] LABS: Albumin Level 3.5 g/dl (3.5-5.0); Chloride 96 mmol/L (98-107); Potassium 3.3 mmoL/L (3.5-5.1); Sodium 137 mmol/L (136-145)
[2025-05-08 13:30] LABS: Alanine Aminotransferase 24 U/L (12-78); Anion Gap 12.3 mEq/L (5-15); Aspartate Amino Transferase 51 U/L (14-36); Blood Urea Nitrogen 13 mg/dl (7-17); Carbon Dioxide 32 mmol/L (22.0-30.0); Creatinine Clearance Estimated 76 mL/min (50-200); Creatinine,Serum 0.70 mg/dl (0.52-1.04); Estimated Glomerular Filt Rate 81 ml/min (>60); GFR (African American) 98 ML/MIN (>60)
[2025-05-08 13:31] LABS: Albumin/Globulin Ratio 0.9 (1.1-1.8); Alkaline Phosphatase 147 U/L (38-126); Bilirubin,Total 0.5 mg/dl (0.2-1.3); Calcium 8.8 mg/dl (8.4-10.2); Globulin 4.1 g/dL (1.3-3.2); Glucose 176 mg/dl (74-100); INR 0.96 (0.9-1.1); Lipase 81 U/L (23-300); Magnesium 1.7 mg/dl (1.6-2.3); Prothrombin Time 10.7 seconds (10.1-12.5); Total Protein,Serum 7.6 g/dl (6.3-8.2)
[2025-05-08 13:39] LABS: NT Pro Brain Natriuretic Pep. 240 pg/mL (0-450)
[2025-05-08] MEDS: MORPHINE 4MG/ML SYRINGE 2 MG IV (13:43)
[2025-05-08] MEDS: ONDANSETRON 4MG/2ML VIAL 4 MG IV (13:44)
[2025-05-08] MEDS: HYDRALAZINE 20MG/ML VIAL 10 MG IV (13:44)
[2025-05-08 14:00] LABS: D-Dimer 5.15 ug/mL (0.0-0.5)
[2025-05-08 14:03] LABS: Troponin I < 0.01 ng/ml (0.00-0.034)
--- NOTE | 2025-05-08 14:13 | CT_ITS ---
FINAL REPORT TECHNIQUE: Thin section axial CT with contrast with multiplanar reconstruction This study was performed with techniques to keep radiation doses as low as reasonably achievable, (ALARA). Individualized dose reduction techniques using automated exposure control or adjustment of mA and/or kV according to the patient''s size were employed. CLINICAL HISTORY: Elevated D-dimer COMPARISON: None FINDINGS: Pulmonary vessels enhance in normal fashion without evidence of embolism. 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 Mid ascending aorta measures 44 mm, proximal descending aorta measures 34 mm, and the distal descending is at the upper limits of normal at 29 mm. No pulmonary mass or infiltrate is present. There is no significant pleural effusion. There is no significant pericardial effusion. No mediastinal or hilar adenopathy is present. There is mild esophageal distention with fluid probably reflecting reflux disease. Limited images of the upper abdomen demonstrate fatty infiltration of the liver. IMPRESSION: No evidence of pulmonary embolism. 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 No acute lung disease. Reviewed, Interpreted and Dictated by Leonila Mahajan MD Transcribed by Alicia Funes Authenticated and [facility]
--- NOTE | 2025-05-08 14:16 | CA_ITS ---
FINAL REPORT CLINICAL HISTORY: EDEMA,HTN FINDINGS: Multiple transverse and longitudinal scans were performed of the femoral popliteal deep venous system, with augmentation and compression maneuvers. Normal phasic flow was noted in the visualized deep venous system. No intraluminal increased echogenicity is noted to suggest thrombus. There is normal compression and augmentation of the venous structures. No abnormal venous collaterals are seen. IMPRESSION: No evidence of deep venous thrombosis of the bilateral lower extremities. Reviewed, Interpreted and Dictated by Leonila Mahajan MD Transcribed by Belen Perdomo Authenticated and [facility]
[2025-05-08] MEDS: SODIUM CHLORIDE 0.9% 10ML SYR (RAD ONLY) 10 ML IV (14:39)
[2025-05-08] MEDS: 0.9 % SODIUM CHLORIDE 50 ML VIAL IV (14:39)
[2025-05-08] MEDS: IOPAMIDOL-370 (76%);100ML BOTTLE 70 ML IV (14:39)
[2025-05-08] MEDS: POTASSIUM CHLORIDE 20MEQ TAB 40 MEQ PO (14:59)
--- NOTE | 2025-05-11 14:19 | SW/DCPLANNER ---
Addendum entered by Ashley Loredo 05/11/25 14:30: [facility], [facility] and [facility] will reach out to patient's daughter via phone Allie. Original Note: Patient's family reached out needing assistance w/ placement from home. Patient/family are agreeable to placement at any facility. I have reached out to the following facilities: [facility] (no beds), [facility] (no beds), [facility] (will contact daughter), [facility] (will contact daughter), [facility], [facility], [facility], [facility] (no beds) and [facility]
== END 2025-05-08 15:44 | disposition left against medical advice (07) ==
PROVIDERS: Physician Assistant; Emergency Provider Student in an Organized Health Care Education/Training Program; PCP Internal Medicine Adolescent Medicine
DX: R22.43 Localized swelling, mass and lump, lower limb, bilateral (principal); I71.20 Thoracic aortic aneurysm, without rupture, unspecified; R79.1 Abnormal coagulation profile; E87.6 Hypokalemia; I44.0 Atrioventricular block, first degree; I11.0 Hypertensive heart disease with heart failure; R53.1 Weakness; M79.602 Pain in left arm; M79.601 Pain in right arm; I87.8 Other specified disorders of veins; I50.30 Unspecified diastolic (congestive) heart failure
CPT/HCPCS: 70450; 71045; 71275; 73030; 73060; 80053; 83690; 83735; 83880; 84484; 85025; 85378; 85610; 93005; 93970; 96374; 96375; 99285; J0360; J2270; J2405; Q9967

== ENCOUNTER 2025-06-23 15:23 | Outpatient (CLI) | payer MEDICARE, OTHER, SELFPAY ==
[2025-06-23 15:37] LABS: Microscopic, Urine URINE MICROSCOPIC (MICROSCOPIC)
[2025-06-23 16:29] LABS: Bilirubin,Urine Negative (Negative); Color,Urine YELLOW (Yellow); Glucose,Urine (UA) Negative (Negative); Ketones,Urine Negative (Negative); Leukocyte Esterase,Urine Negative (Negative); PH,Urine 5.5 (5.0-8.5); Protein,Urine Negative (Negative); Specific Gravity, Urine 1.010 (1.005-1.030); Urobilinogen,Urine 0.2 EU/dl (0.2)
== END 2025-06-23 23:59 | disposition home or self-care (01) ==
PROVIDERS: Nurse Practitioner Family; PCP Internal Medicine Adolescent Medicine; Visit Provider Internal Medicine Adolescent Medicine
DX: N39.0 Urinary tract infection, site not specified (principal)
CPT/HCPCS: 81001